=== PATIENT | male | born 1965 | race Caucasian/White ===

== ENCOUNTER 2019-12-11 18:27 | Emergency (ER) | payer OTHER ==
[2019-12-11 18:33] VITALS: BP 165/84; PULSE 86; RESP 20; TEMP 97.9
[2019-12-11] MEDS ORDERED: ACET/COD 300 MG/30 MG STARTER PACK 6 TAB BTL PO STA (19:54)
[2019-12-11] MEDS ORDERED: Acetaminophen-Codeine 300-30mg TAB PO STA (19:54)
--- NOTE | 2019-12-11 19:56 | ED ---
General Adult HPI - General Chief complaint: Skin/Abscess/Foreign Body Stated complaint: sore in mouth Time Seen by Provider: 12/11/19 19:11 Source: patient Mode of arrival: ambulatory Limitations: no limitations - History of Present Illness Initial comments: Patient is a 54-year-old male presenting to the emergency department with a chief complaint of an oral lesion. Patient states the lesion has been on the left side of his tongue and is also present at the [place] mouth. Patient states this has been present for about one month and is gradually increasing severity. Patient reports the lesion is very painful but denies any discharge from the region. Patient does have a strong family history of cancer. Patient is a lifelong smoker. Patient denies any chewing tobacco. Denies any night sweats fevers or chills. Patient states she has not seen a physician in over 25 years. Denies any drooling. Does report some difficulty swallowing. - Related Data Allergies Allergy/AdvReac Type Severity Reaction Status Date / Time No Known Allergies Allergy Verified 12/11/19 18:33 Review of Systems ROS Statement: Those systems with pertinent positive or pertinent negative responses have been documented in the HPI. ROS Other: All systems not noted in ROS Statement are negative. Past Medical History Past Medical History: No Reported History History of Any Multi-Drug Resistant Organisms: None Reported Past Surgical History: No Surgical Hx Reported Past Psychological History: No Psychological Hx Reported Smoking Status: Current every day smoker Past Alcohol Use History: Occasional Past Drug Use History: Marijuana General Exam Limitations: no limitations General appearance: alert, in no apparent distress Head exam: Present: atraumatic, normocephalic, normal inspection Eye exam: Present: normal appearance, PERRL, EOMI Pupils: Present: normal accommodation ENT exam: Present: normal exam, mucous membranes moist, TM's normal bilaterally, normal external ear exam. Absent: normal oropharynx (Lesion along the left side of the tongue and floor the mouth that is white in color.) Neck exam: Present: normal inspection, full ROM Respiratory exam: Present: normal lung sounds bilaterally Cardiovascular Exam: Present: regular rate, normal rhythm, normal heart sounds Extremities exam: Present: normal inspection, full ROM Back exam: Present: normal inspection, full ROM Neurological exam: Present: alert, oriented X3 Psychiatric exam: Present: normal affect, normal mood Skin exam: Present: warm, dry, intact, normal color Course Vital Signs 12/11/19 18:31 Temperature 97.9 F Pulse Rate 86 Respiratory 20 Rate Blood Pressure 165/84 O2 Sat by Pulse 100 Oximetry Medical Decision Making - Medical Decision Making Patient is a 54-year-old male presenting to emergency Department with a chief complaint of an oral lesion. On exam patient does have a white lesion on the left side of his tongue and also the floor of the mouth. 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 Possibly cancerous. Patient has not seen a physician in over 25 years and is a lifelong smoker. Patient does have a strong family history of cancer. Patient advised to follow with an oral surgeon. Patient given a Tylenol 3 starter pack for symptomatically control. Strict return parameters were thoroughly discussed with patient was understanding and agreeable. Case discussed with physician. Disposition Clinical Impression: Oral mucosal lesion Disposition: HOME SELF-CARE Condition: Stable Instructions (If sedation given, give patient instructions): Gingivostomatitis (ED) Additional Instructions: Please follow up with an oral surgeon. Do not drive or operate heavy machinery when taking the medication. Please return to emergency department if symptoms worsen. Is patient prescribed a controlled substance at d/c from ED?: No Referrals: None,Stated [Primary Care Provider] - 1-2 days Broderick Nguyen DDS [STAFF PHYSICIAN] - 1-2 days Time of Disposition: 19:55
== END 2019-12-11 20:16 | disposition home or self-care (01) ==
LOC: EC 18:27
DX: K13.70 Unspecified lesions of oral mucosa (principal); F17.200 Nicotine dependence, unspecified, uncomplicated
CPT/HCPCS: 99282

== ENCOUNTER 2023-10-22 14:55 | Inpatient (IN) | payer OTHER ==
[2023-10-22] MEDS ORDERED: SODIUM CHLORIDE 0.9% 1,000 ML IV STA (15:33)
--- NOTE | 2023-10-22 15:34 | ED ---
Weakness HPI - General Chief complaint: Weakness Stated complaint: Failure to Thrive Time Seen by Provider: 10/22/23 15:30 Source: patient, EMS, RN notes reviewed, old records reviewed Mode of arrival: EMS Limitations: no limitations - History of Present Illness Initial comments: This is a 58-year-old male to the emergency department for evaluation. Patient coming in for significant weakness. Patient is having failure to thrive significant weight loss with history of both oral and esophageal cancer. Patient states he is the point where he can't get up or do anything without having significant shortness of breath and weakness. Patient states he is not complaining of any pain, no headache chest pain shortness breath or abdominal pain, patient is unable to take care of himself on his own at this time MD Complaint: generalized weakness -: days(s) Location: generalized Severity: severe Severity scale (1-10): 9 Consistency: constant Improves with: none Worsens with: none Context: recent illness, history of similar Associated Symptoms: confusion, loss of appetite, nausea/vomiting, syncope - Related Data Home Medications Medication Instructions Recorded Confirmed No Known Home Medications 10/22/23 10/22/23 Allergies Allergy/AdvReac Type Severity Reaction Status Date / Time No Known Allergies Allergy Verified 10/22/23 17:42 Review of Systems ROS Statement: Those systems with pertinent positive or pertinent negative responses have been documented in the HPI. ROS Other: All systems not noted in ROS Statement are negative. Past Medical History Past Medical History: No Reported History Additional Past Medical History / Comment(s): mouth [place] History of Any Multi-Drug Resistant Organisms: None Reported Past Surgical History: No Surgical Hx Reported Past Psychological History: No Psychological Hx Reported Smoking Status: Current every day smoker Past Alcohol Use History: Daily Past Drug Use History: Marijuana General Exam Limitations: no limitations, altered mental status General appearance: alert, in no apparent distress, anxious, lethargic, cachectic Head exam: Present: atraumatic, normocephalic, normal inspection Eye exam: Present: normal appearance, PERRL, EOMI. Absent: scleral icterus, conjunctival injection, periorbital swelling ENT exam: Present: normal exam, mucous membranes moist Neck exam: Present: normal inspection. Absent: tenderness, meningismus, lymphadenopathy Respiratory exam: Present: normal lung sounds bilaterally. Absent: respiratory distress, wheezes, rales, rhonchi, stridor Cardiovascular Exam: Present: regular rate, normal rhythm, normal heart sounds. Absent: systolic murmur, diastolic murmur, rubs, gallop, clicks GI/Abdominal exam: Present: soft, normal bowel sounds. Absent: distended, tenderness, guarding, rebound, rigid Extremities exam: Present: normal inspection, full ROM, normal capillary refill. Absent: tenderness, pedal edema, joint swelling, calf tenderness Back exam: Present: normal inspection Neurological exam: Present: alert, oriented X3, CN II-XII intact Psychiatric exam: Present: normal affect, normal mood Skin exam: Present: warm, dry, intact, normal color. Absent: rash Course Vital Signs 10/22/23 10/22/23 10/22/23 15:05 18:54 18:59 Temperature 98.9 F Pulse Rate 95 95 77 Pulse Rate [ Pulse Oximetery ] Respiratory 16 16 16 Rate Blood Pressure 121/69 Blood Pressure [Left Arm] O2 Sat by Pulse 100 Oximetry 10/22/23 10/22/23 10/22/23 19:05 19:56 20:00 Temperature 98.2 F Pulse Rate 94 Pulse Rate [ 109 H 109 H Pulse Oximetery ] Respiratory 18 16 Rate Blood Pressure 137/62 Blood Pressure 156/96 [Left Arm] O2 Sat by Pulse 99 100 Oximetry 10/23/23 10/23/23 10/23/23 02:01 05:54 08:00 Temperature 97.8 F Pulse Rate 109 H Pulse Rate [ 101 H 92 Pulse Oximetery ] Respiratory 16 16 18 Rate Blood Pressure 111/80 Blood Pressure 137/88 134/92 [Left Arm] O2 Sat by Pulse 95 97 98 Oximetry 10/23/23 10/23/23 10/23/23 08:18 08:29 11:44 Temperature 98 F Pulse Rate 90 90 94 Pulse Rate [ Pulse Oximetery ] Respiratory 18 Rate Blood Pressure 128/79 Blood Pressure [Left Arm] O2 Sat by Pulse 100 Oximetry 10/23/23 10/23/23 15:00 19:22 Temperature 97.3 F L Pulse Rate 78 Pulse Rate [ 97 Pulse Oximetery ] Respiratory 18 15 Rate Blood Pressure 126/74 Blood Pressure 145/85 [Left Arm] O2 Sat by Pulse 96 100 Oximetry - Reevaluation(s) Reevaluation #1: 10/22/23 18:31 Medical record is reviewed Reevaluation #2: 10/22/23 18:31 Patient symptoms her change Reevaluation #3: 10/22/23 18:31 Patient informed results questions answered Reevaluation #4: 10/22/23 18:31 Was pt. sent in by a medical professional or institution (DIAMANTE Davila, CHIEF ENVIRONMENTAL COMMITMENT OFFICER, urgent care, hospital, or custodial...) When possible be specific @ -no Did you speak to anyone other than the patient for history (EMS, parent, family, police, friend...)? What history was obtained from this source @ -no Did you review nursing and triage notes (agree or disagree)? Why? @ -agree Are old charts reviewed (outside hosp., previous admission, EMS record, old EKG, old radiological studies, urgent care reports/EKG's, custodial records)? Report findings @ -yes Differential Diagnosis (chest pain, altered mental status, abdominal pain women, abdominal pain men, vaginal bleeding, weakness, fever, dyspnea, syncope, headache, dizziness, GI bleed, back pain, seizure, CVA, palpatations, mental health, musculoskeletal)? @ -prior EKG interpreted by me (3pts min.). @ -yes X-rays interpreted by me (1pt min.). @ -yes CT interpreted by me (1pt min.). @ -no U/S interpreted by me (1pt. min.). @ -no What testing was considered but not performed or refused? (CT, X-rays, U/S, labs)? Why? @ -none What meds were considered but not given or refused? Why? @ -none Did you discuss the management of the patient with other professionals (professionals i.e. DIAMANTE Davila, CHIEF ENVIRONMENTAL COMMITMENT OFFICER, lab, RT, psych nurse, criminal justice social worker, rating examiner, teacher, president and chief commercial officer, cyanide case hardener)? Give summary @ -no Was smoking cessation discussed for >3mins.? @ -no Was critical care preformed (if so, how long)? @ -no Were there social determinants of health that impacted care today? How? (Homelessness, low income, unemployed, alcoholism, drug addiction, transporta tion, low edu. Level, literacy, decrease access to med. care, penitentiary, rehab)? @ -none Was there de-escalation of care discussed even if they declined (Discuss DNR or withdrawal of care, Hospice)? DNR status @ -no What co-morbidities impacted this encounter? (DM, HTN, Smoking, COPD, CAD, Cancer, CVA, ARF, Chemo, Hep., AIDS, mental health diagnosis, sleep apnea, morbid obesity)? @ -none Was patient admitted / discharged? Hospital course, mention meds given and route, prescriptions, significant lab abnormalities, going to OR and other pertinent info. @ - 58 male to the emergency department today for evaluation today. Patient presents today for evaluation regards to severe weakness severe weight loss debility shortness of breath with exertion. Patient will be admitted for likely placement patient has no significant specific complaints aside from inability to do activities weakness and shortness of breath on any type of activity Admitted Undiagnosed new problem with uncertain prognosis? @ -no Drug Therapy requiring intensive monitoring for toxicity (Heparin, Nitro, Insulin, Cardizem)? @ -no Were any procedures done? @ -no Diagnosis/symptom? @ -Debility, failure to thrive Acute, or Chronic, or Acute on Chronic? @ -Acute Uncomplicated (without systemic symptoms) or Complicated (systemic symptoms)? @ -Complicated Side effects of treatment? @ -no Exacerbation, Progression, or Severe Exacerbation? @ -exacerbation Poses a threat to life or bodily function? How? (Chest pain, USA, CT, pneumonia, PE, COPD, DKA, ARF, appy, cholecystitis, CVA, Diverticulitis, Homicidal, Suicida l, threat to staff... and all critical care pts) @ -yes severe debility and emaciation Reevaluation #5: 10/22/23 18:32 Differential Weakness: Hypoglycemia, shock, sepsis, hyponatremia, anemia, infection, CT, ETOH, adverse medicine reaction, overdose, stroke, this is not meant to be an all-inclusive list. - Consultations Consultation #1: spoke with [facility] will be admit this patient EKG Findings - EKG Comments: EKG Findings:: EKG is A. fib 94 QRS 66 QTC 398 - EKG Results: EKG: interpreted by REYNAD Medical Decision Making - Medical Decision Making 58 male to the emergency department today for evaluation today. Patient presents today for evaluation regards to severe weakness severe weight loss debility shortness of breath with exertion. Patient will be admitted for likely placement patient has no significant specific complaints aside from inability to do activities weakness and shortness of breath on any type of activity - Lab Data Result diagrams: 10/27/23 07:14 10/27/23 07:14 Lab Results 10/22/23 10/22/23 10/22/23 Range/Units 16:04 16:04 16:04 WBC (3.8-10.6) k/uL RBC (4.30-5.90) m/uL Hgb (13.0-17.5) gm/dL Hct (39.0-53.0) % MCV (80.0-100.0) fL MCH (25.0-35.0) pg MCHC (31.0-37.0) g/dL RDW (11.5-15.5) % Plt Count (150-450) k/uL MPV Neutrophils % % Lymphocytes % % Monocytes % % Eosinophils % % Basophils % % Neutrophils # (1.3-7.7) k/uL Lymphocytes # (1.0-4.8) k/uL Monocytes # (0-1.0) k/uL Eosinophils # (0-0.7) k/uL Basophils # (0-0.2) k/uL Hypochromasia PT 11.9 (10.0-12.5) sec INR 1.1 (<1.2) APTT 25.9 (22.0-30.0) sec Sodium 131 L (137-145) mmol/L Potassium 3.9 (3.5-5.1) mmol/L Chloride 97 L (98-107) mmol/L Carbon Dioxide 28 (22-30) mmol/L Anion Gap 6 mmol/L BUN 4 L (9-20) mg/dL Creatinine 0.27 L (0.66-1.25) mg/dL Est GFR (CKD-EPI)AfAm >90 (>60 ml/min/1.73 sqM) Est GFR (CKD-EPI)NonAf >90 (>60 ml/min/1.73 sqM) Glucose 104 H (74-99) mg/dL Plasma Lactic Acid Isai 1.1 (0.7-2.0) mmol/L Calcium 8.6 (8.4-10.2) mg/dL Phosphorus 3.3 (2.5-4.5) mg/dL Magnesium 2.0 (1.6-2.3) mg/dL Total Bilirubin 0.5 (0.2-1.3) mg/dL AST 39 (17-59) U/L ALT 16 (4-49) U/L Alkaline Phosphatase 82 (38-126) U/L Troponin I (0.000-0.034) ng/mL NT-Pro-B Natriuret Pep 719 pg/mL Total Protein 6.7 (6.3-8.2) g/dL Albumin 2.8 L (3.5-5.0) g/dL TSH 1.820 (0.465-4.680) mIU/L 10/22/23 10/22/23 Range/Units 16:04 17:21 WBC 6.9 (3.8-10.6) k/uL RBC 3.52 L (4.30-5.90) m/uL Hgb 9.3 L (13.0-17.5) gm/dL Hct 29.8 L (39.0-53.0) % MCV 84.6 (80.0-100.0) fL MCH 26.5 (25.0-35.0) pg MCHC 31.4 (31.0-37.0) g/dL RDW 14.2 (11.5-15.5) % Plt Count 591 H (150-450) k/uL MPV 7.5 Neutrophils % 76 % Lymphocytes % 13 % Monocytes % 8 % Eosinophils % 2 % Basophils % 0 % Neutrophils # 5.2 (1.3-7.7) k/uL Lymphocytes # 0.9 L (1.0-4.8) k/uL Monocytes # 0.6 (0-1.0) k/uL Eosinophils # 0.1 (0-0.7) k/uL Basophils # 0.0 (0-0.2) k/uL Hypochromasia Marked PT (10.0-12.5) sec INR (<1.2) APTT (22.0-30.0) sec Sodium (137-145) mmol/L Potassium (3.5-5.1) mmol/L Chloride (98-107) mmol/L Carbon Dioxide (22-30) mmol/L Anion Gap mmol/L BUN (9-20) mg/dL Creatinine (0.66-1.25) mg/dL Est GFR (CKD-EPI)AfAm (>60 ml/min/1.73 sqM) Est GFR (CKD-EPI)NonAf (>60 ml/min/1.73 sqM) Glucose (74-99) mg/dL Plasma Lactic Acid Isai (0.7-2.0) mmol/L Calcium (8.4-10.2) mg/dL Phosphorus (2.5-4.5) mg/dL Magnesium (1.6-2.3) mg/dL Total Bilirubin (0.2-1.3) mg/dL AST (17-59) U/L ALT (4-49) U/L Alkaline Phosphatase (38-126) U/L Troponin I <0.012 (0.000-0.034) ng/mL NT-Pro-B Natriuret Pep pg/mL Total Protein (6.3-8.2) g/dL Albumin (3.5-5.0) g/dL TSH (0.465-4.680) mIU/L - Radiology Data Radiology results: report reviewed (CHEst x-rays negative for acute disease, possibility of pneumonia but no clinical symptoms), image reviewed Disposition Clinical Impression: Dehydration, Weakness, Acute renal failure Disposition: ADMITTED IP TO THIS [facility] Condition: Fair Is patient prescribed a controlled substance at d/c from ED?: No Time of Disposition: 18:30
[2023-10-22 16:25] LABS: INR 1.1 (<1.2); Partial Thromboplastin Time 25.9 sec (22.0-30.0); Prothrombin Time 11.9 sec (10.0-12.5)
[2023-10-22 16:27] LABS: ALT 16 U/L (4-49); AST 39 U/L (17-59); African American GFR (CKD) >90 (>60 ml/min/1.73 sqM); Albumin 2.8 g/dL (3.5-5.0); Alkaline Phosphatase 82 U/L (38-126); Anion Gap 6 mmol/L; Blood Urea Nitrogen 4 mg/dL (9-20); Calcium 8.6 mg/dL (8.4-10.2); Carbon Dioxide 28 mmol/L (22-30); Chloride 97 mmol/L (98-107); Glucose 104 mg/dL (74-99); Non-African American GFR(CKD) >90 (>60 ml/min/1.73 sqM); Phosphorus 3.3 mg/dL (2.5-4.5); Potassium 3.9 mmol/L (3.5-5.1); Sodium 131 mmol/L (137-145); Total Bilirubin 0.5 mg/dL (0.2-1.3); Total Protein 6.7 g/dL (6.3-8.2)
[2023-10-22 16:36] LABS: NT-Pro-B-Type Natriuretic Pept 719 pg/mL
[2023-10-22 17:40] LABS: Basophils % (A) 0 %; Eosinophils # (A) 0.1 k/uL (0-0.7); Eosinophils % (A) 2 %; HCT 29.8 % (39.0-53.0); HGB 9.3 gm/dL (13.0-17.5); Hypochromasia Marked; Lymphocytes # (A) 0.9 k/uL (1.0-4.8); Lymphocytes % (A) 13 %; MCH 26.5 pg (25.0-35.0); MCHC 31.4 g/dL (31.0-37.0); MCV 84.6 fL (80.0-100.0); Mean Platelet Volume 7.5; Monocytes # (A) 0.6 k/uL (0-1.0); Monocytes % (A) 8 %; Neutrophils # (A) 5.2 k/uL (1.3-7.7); Neutrophils % (A) 76 %; Platelet Count 591 k/uL (150-450); RBC 3.52 m/uL (4.30-5.90); RDW 14.2 % (11.5-15.5); WBC 6.9 k/uL (3.8-10.6)
[2023-10-22] MEDS ORDERED: IPRATROPIUM-ALBUTEROL 3 ML NEB INHALATION STA (18:35)
[2023-10-22] MEDS ORDERED: ONDANSETRON 4 MG/2 ML VIAL IVP PRN (18:35)
[2023-10-22] MEDS ORDERED: NALOXONE 0.4 MG/ML 1 ML VIAL IV PRN (18:35)
[2023-10-22] MEDS ORDERED: MORPHINE SULFATE 4 MG/ML SYRINGE IV PRN (18:35)
[2023-10-22] MEDS ORDERED: IPRATROPIUM-ALBUTEROL 3 ML NEB INHALATION PRN (18:35)
--- NOTE | 2023-10-22 19:19 | XR ---
EXAMINATION TYPE: XR chest 1V portable DATE OF EXAM: 10/22/2023 HISTORY: Shortness of breath. COMPARISON: None. TECHNIQUE: Single view of the chest is submitted. FINDINGS: Demonstrated are scattered senescent parenchymal change. Patchy infiltrate throughout the right lung may reflect underlying pneumonia. Follow-up until resolut ion advised. Suspect small effusion. Hyperinflation of the left lung. The heart is stable. Hilar and mediastinal structures are within normal limits. Degenerative changes are seen of the dorsal spine. IMPRESSION: 1. Patchy infiltrate throughout the right lung may reflect underlying pneumonia. Follow-up until res olution advised. Suspect small effusion. Hyperinflation of the left lung.
[2023-10-22] MEDS: SODIUM CHLORIDE 0.9% 1,000 ML IV SCH (22:50)
[2023-10-23 01:40] LABS: Appearance,Urine Clear (Clear); Color,Urine Light Orange; Glucose,Urine (UA) Negative (Negative); Ketones,Urine 1+ (Negative); PH, Urine 6.5 (5.0-8.0); Protein,Urine 1+ (Negative)
[2023-10-23 01:41] LABS: Bilirubin,Urine 1+ (Negative); Hyaline Casts,Urine 15 /lpf (0-2); Leukocyte Esterase,Urine Negative (Negative); Nitrite,Urine Negative (Negative); RBC,Urine 2 /hpf (0-5); Squamous Epithelial Cell,Urine 1 /hpf (0-4); WBC,Urine 5 /hpf (0-5)
[2023-10-23 01:42] LABS: Granular Casts,Urine 2 /lpf (0); Mucus,Urine Many /hpf
[2023-10-23 10:14] LABS: Basophils % (A) 0 %; Eosinophils # (A) 0.1 k/uL (0-0.7); Eosinophils % (A) 1 %; HCT 27.4 % (39.0-53.0); HGB 8.4 gm/dL (13.0-17.5); Hypochromasia Marked; Lymphocytes # (A) 0.8 k/uL (1.0-4.8); Lymphocytes % (A) 12 %; MCH 26.1 pg (25.0-35.0); MCHC 30.8 g/dL (31.0-37.0); MCV 84.8 fL (80.0-100.0); Mean Platelet Volume 7.5; Monocytes # (A) 0.7 k/uL (0-1.0); Monocytes % (A) 9 %; Neutrophils # (A) 5.3 k/uL (1.3-7.7); Neutrophils % (A) 76 %; Platelet Count 535 k/uL (150-450); RBC 3.24 m/uL (4.30-5.90); RDW 14.4 % (11.5-15.5)
[2023-10-23] MEDS: SODIUM CHLORIDE 0.9% 1,000 ML IV SCH (10:15)
[2023-10-23 10:34] LABS: ALT 19 U/L (4-49); AST 37 U/L (17-59); African American GFR (CKD) >90 (>60 ml/min/1.73 sqM); Albumin 2.5 g/dL (3.5-5.0); Albumin/Globulin Ratio 0.7; Alkaline Phosphatase 75 U/L (38-126); Anion Gap 7 mmol/L; Blood Urea Nitrogen 3 mg/dL (9-20); Calcium 8.1 mg/dL (8.4-10.2); Carbon Dioxide 26 mmol/L (22-30); Chloride 100 mmol/L (98-107); Globulin 3.7 g/dL; Glucose 146 mg/dL (74-99); Magnesium 1.9 mg/dL (1.6-2.3); Non-African American GFR(CKD) >90 (>60 ml/min/1.73 sqM); Phosphorus 2.7 mg/dL (2.5-4.5); Potassium 3.5 mmol/L (3.5-5.1); Sodium 133 mmol/L (137-145); Total Bilirubin 0.3 mg/dL (0.2-1.3); Total Protein 6.2 g/dL (6.3-8.2)
[2023-10-23] MEDS ORDERED: IOPAMIDOL CONTRAST (ORAL USE) VIAL PO PRN ×2 (11:59→16:25)
[2023-10-23] MEDS: PIPERACILLIN-TAZOBACTAM 3.375 GM in SODIUM CHLORIDE 0.9% 100 ML IVPB SCH ×2 (13:27→17:19)
--- NOTE | 2023-10-23 13:56 | CT ---
EXAMINATION: CT CHEST, ABDOMEN AND PELVIS WITHOUT CONTRAST DATE OF EXAMINATION: 10/23/2023. COMPARISON: None available. INDICATION: History of throat cancer. PROCEDURE: Axial CT of the chest, abdomen and pelvis was performed without contrast. Coronal and sa gittal reformats were performed. CT dose lowering techniques were used, to include: automated exposur e control, adjustment for patient size, and/or use of iterative reconstruction. FINDINGS: CHEST: Mediastinum and Loni: There is no axillary, mediastinal or hilar lymphadenopathy. Pleural and Pericardial spaces: Trace right pleural effusion. Cardiovascular: The thoracic aorta is normal in size without evidence of aneurysm or dissection. Pulmonary Artery: There are no central pulmonary arterial filling defects. Lung Parenchyma and Airways: There is a large irregular mass within the right upper lobe on series 20 4 image 18 measuring 5.2 x 4.0 cm in diameter. There is some surrounding airspace opacity. This would be most likely related to malignancy. There is some mild to moderate diffuse centrilobular emphysema . There is some scattered interstitial changes otherwise seen throughout the right middle and right l ower lobe as well as septal thickening which could be inflammatory or infectious with metastatic dise ase also a possibility in this location. The left lung appears relatively clear. There are a few scat tered sub-5 mm nodules noted on this side however. ABDOMEN: Liver and Biliary system: Normal. Adrenal glands: Normal. Kidneys and ureters: Normal. Spleen: Normal. Pancreas: Normal. Gallbladder: Normal. Lymph nodes, Peritoneum and mesentery: There is no mesenteric or retroperitoneal lymphadenopathy. Gastrointestinal tract: There are no dilated loops of bowel or free intraperitoneal air. . The appe ndix is not clearly seen. There is mild sigmoid diverticulosis without evidence of diverticulitis. Aorta/IVC: Aorta normal. No aortic aneurysm or dissection. IVC normal. Abdominal wall: Normal. PELVIS: Fluid: There is no free fluid in the pelvis. Lymph Nodes: There is no pelvic or inguinal lymphadenopathy.. Urinary bladder: Normal. BONES: There are no osseous destructive lesions.. ADDITIONAL SIGNIFICANT FINDINGS: None. IMPRESSION: 1. Large irregular mass within the right upper lobe is compatible with malignancy and/or metastasis. 2. Extensive airspace opacity also seen within the right lower lobe which has a masslike appearance w hich would raise the possibility of metastatic disease as well. A superimposed pneumonia cannot be ex cluded. 3. Mild diffuse to moderate diffuse centrilobular emphysema. 4. Scattered small pulmonary nodules also seen within the left lung as metastatic disease would not b e entirely excluded. 5. Diverticulosis without evidence of diverticulitis. 6. No renal stones or hydronephrosis. 7. Small right paratracheal lymph node may be metastatic.
--- NOTE | 2023-10-23 13:59 | HP ---
HISTORY AND PHYSICAL CHIEF COMPLAINT: Weakness and diminished p.o. intake. HISTORY OF PRESENT ILLNESS: This 58-year-old gentleman with a past medical history of oral and esophageal cancer, had significant difficulty with eating and the patient continues to have poor oral intake and the patient is apparently living with his brother and because of dehydration and other issues, patient was transferred to [facility], admitted for further evaluation and treatment, currently his BMI is only 14.0, and the patient is severely emaciated and weak. PAST MEDICAL HISTORY: Oral and throat cancer, rest of the history and rest of the chart is also reviewed. HOME MEDICATIONS: Reviewed include albuterol p.r.n., rest of medications noted. ALLERGIES: None. FAMILY HISTORY, SOCIAL HISTORY, REVIEW OF SYSTEMS: Could not be taken as the patient is mildly confused. PHYSICAL EXAMINATION: VITAL SIGNS: Pulse is 94, blood pressure 120/87, respirations 18. CHEST: Few scattered rhonchi and crackles. ABDOMEN: Soft, nontender, mild distention. LEGS: No edema. No swelling. NERVOUS SYSTEM: No focal deficit. SKIN: No ulcer, rash, bleeding. JOINTS: No active deforming arthropathy. LABORATORY DATA: Reviewed. ASSESSMENT: 1. Significant emaciation, possibly severe malnutrition, possibly secondary to diminished p.o. intake. 2. Possible aspiration pneumonia, right. 3. Oral and throat cancer history. 4. History of nicotine dependence. 5. History of alcohol. 6. History of THC. 7. Anemia possibly secondary to malignancy. RECOMMENDATIONS AND DISCUSSION: This 58-year-old gentleman presented with multiple complex medical issues, we will monitor the patient closely, hydrated the patient, PT OT evaluation and dietary nutrition consult nutrition supplements. Possible ECF rehab. Assess the home situation, so recommended to consult Dr. Carl for evaluation of the oral cancer. I would also recommend CT series also just to assess the current situation with the cancer. The patient also had aspiration pneumonia on the right, which we will treat with broad-spectrum IV antibiotics as well. MMODL / IJN: [id number] /
--- NOTE | 2023-10-23 13:59 | CT ---
EXAMINATION TYPE: CT brain wo con DATE OF EXAM: 10/23/2023 COMPARISON: None available. HISTORY: History of throat cancer. CT DLP: 1085.4 mGycm Automated exposure control for dose reduction was used. FINDINGS: There appears to be edema within the right frontal parietal region within the white matter which woul d raise the possibility of an underlying mass. MRI of the brain with contrast is recommended for furt her evaluation. No acute major vessel infarct is clearly identified. There is no hemorrhage seen. IMPRESSION: THERE APPEARS TO BE SOME VASOGENIC EDEMA WITHIN THE RIGHT MATTER OF THE RIGHT CEREBRAL HEMISPHERE WELL THE LEFT FRONTAL REGION WHICH COULD POTENTIALLY REPRESENT METASTATIC LESIONS, HOWEVER INCOMPL ETELY EVALUATED WITHOUT CONTRAST. MRI OF THE BRAIN WITHOUT AND WITH CONTRAST IS RECOMMENDED FOR FURTH ER EVALUATION.
[2023-10-23] MEDS ORDERED: ALPRAZolam 0.25 MG TAB PO STA (20:17)
[2023-10-23] MEDS: NICOTINE 21MG/24HR PATCH TRANSDERM SCH (20:36)
[2023-10-23] MEDS: HEPARIN SODIUM,PORCINE 5,000 UNIT/ML 1 ML VIAL SQ SCH (20:36)
[2023-10-24] MEDS: PIPERACILLIN-TAZOBACTAM 3.375 GM in SODIUM CHLORIDE 0.9% 100 ML IVPB SCH ×3 (00:20→16:26)
[2023-10-24] MEDS: SODIUM CHLORIDE 0.9% 1,000 ML IV SCH ×2 (00:21→11:55)
[2023-10-24] MEDS ORDERED: MELATONIN 5 MG TABLET PO STA (02:58)
--- NOTE | 2023-10-24 09:19 | P.CONS ---
History of Present Illness - Reason for Consult Consult date: 10/23/23 - History of Present Illness Patient is a 58-year-old male with a past medical history significant for mouth and throat cancer presented to the hospital for evaluation of significant weakness the patient did have a failure to thrive and significant weight loss patient was complaining weakness to the point that he is not able to get up without significant shortness of breath and weakness with the symptoms the patient presented to hospital patient on arrival to the ER was afebrile and no fever have been ordered subsequently patient had hematocrit of 6.9 with lymphopenia creatinine has been normal urine has been negative patient did tested negative for COVID-19 patient did have a [address] of the abdominal pelvis and chest without contrast with evidence of large irregular mass within the right upper lobe compatible with malignancy or metastasis with extensive airspace opacity right upper lobe which has a masslike appearance there is a possibility of metastatic disease pneumonia not excluded scattered pulmonary nodules small right paratracheal lymph nodes may be metastatic patient was started on Zosyn infectious he was consulted for further management of antibiotic therapy patient overall is very poor historian but specifically for the respiratory symptoms complaining of some cough bring up any sputum no nausea no pain no choking on the food no diarrhea and is cannot requiring any supplemental oxygen Past Medical History Past Medical History: Cancer Additional Past Medical History / Comment(s): mouth CA, throat CA History of Any Multi-Drug Resistant Organisms: None Reported Past Surgical History: No Surgical Hx Reported Past Anesthesia/Blood Transfusion Reactions: No Reported Reaction Past Psychological History: No Psychological Hx Reported Smoking Status: Current every day smoker Past Alcohol Use History: Daily Past Drug Use History: Marijuana Medications and Allergies Home Medications Medication Instructions Recorded Confirmed Type No Known Home Medications 10/22/23 10/22/23 History Allergies Allergy/AdvReac Type Severity Reaction Status Date / Time No Known Allergies Allergy Verified 10/22/23 17:42 Physical Exam Vitals: Vital Signs Temp Pulse Pulse Resp BP BP Pulse Ox 10/23/23 15:00 78 18 126/74 96 10/23/23 11:44 98 F 94 18 128/79 100 10/23/23 08:29 90 10/23/23 08:18 90 10/23/23 08:00 109 H 18 111/80 98 10/23/23 05:54 92 16 134/92 97 10/23/23 02:01 97.8 F 101 H 16 137/88 95 10/22/23 20:00 109 H 10/22/23 19:56 98.2 F 109 H 16 156/96 100 10/22/23 19:05 94 18 137/62 99 10/22/23 18:59 77 16 10/22/23 18:54 95 16 Intake and Output 10/23/23 10/23/23 10/23/23 06:59 14:59 22:59 Output Total 300 Balance -300 Output: Urine 300 Results CBC & Chem 7: 10/23/23 09:58 10/23/23 09:58 Labs: Abnormal Lab Results - Last 24 Hours (Table) 10/22/23 10/23/23 10/23/23 Range/Units 17:21 01:08 09:58 RBC 3.52 L 3.24 L (4.30-5.90) m/uL Hgb 9.3 L 8.4 L (13.0-17.5) gm/dL Hct 29.8 L 27.4 L (39.0-53.0) % MCHC 30.8 L (31.0-37.0) g/dL Plt Count 591 H 535 H (150-450) k/uL Lymphocytes # 0.9 L 0.8 L (1.0-4.8) k/uL Sodium (137-145) mmol/L BUN (9-20) mg/dL Creatinine (0.66-1.25) mg/dL Glucose (74-99) mg/dL Calcium (8.4-10.2) mg/dL Total Protein (6.3-8.2) g/dL Albumin (3.5-5.0) g/dL Urine Protein 1+ H (Negative) Urine Ketones 1+ H (Negative) Urine Bilirubin 1+ H (Negative) Hyaline Casts 15 H (0-2) /lpf Urine Mucus Many H (None) /hpf 10/23/23 Range/Units 09:58 RBC (4.30-5.90) m/uL Hgb (13.0-17.5) gm/dL Hct (39.0-53.0) % MCHC (31.0-37.0) g/dL Plt Count (150-450) k/uL Lymphocytes # (1.0-4.8) k/uL Sodium 133 L (137-145) mmol/L BUN 3 L (9-20) mg/dL Creatinine 0.24 L (0.66-1.25) mg/dL Glucose 146 H (74-99) mg/dL Calcium 8.1 L (8.4-10.2) mg/dL Total Protein 6.2 L (6.3-8.2) g/dL Albumin 2.5 L (3.5-5.0) g/dL Urine Protein (Negative) Urine Ketones (Negative) Urine Bilirubin (Negative) Hyaline Casts (0-2) /lpf Urine Mucus (None) /hpf Assessment and Plan Plan: 1patient is in the hospital with weakness history of malignancy and noticed to have a significant abnormality on the CT of the chest with a large irregular mass right upper lobe likely concerning for malignancy and concerning for possible component of postobstructive pneumonia 2-we will try to obtain sputum for Gram stain culture check a CRP and a procalcitonin level 3-Zosyn 3.375 g every 8 hours to continue for now while awaiting further work-up to be completed We will follow on clinical condition and cultures to further adjust medication if needed Thank you for this consultation we will follow the patient along with you Dictation was produced using [employer] dictation software. please excuse any grammatical, word or spelling errors. Time with Patient: Greater than 30
[2023-10-24] MEDS: HEPARIN SODIUM,PORCINE 5,000 UNIT/ML 1 ML VIAL SQ SCH (10:22)
[2023-10-24] MEDS: NICOTINE 21MG/24HR PATCH TRANSDERM SCH (10:23)
[2023-10-24 11:10] LABS: Basophils % (A) 1.5 %; Eosinophils # (A) 0.05 X 10*3/uL (0.04-0.35); Eosinophils % (A) 0.8 %; HCT 26.6 % (39.6-50.0); Lymphocytes # (A) 1.16 X 10*3/uL (0.90-5.00); Lymphocytes % (A) 17.7 %; MCH 24.9 pg (27.0-32.0); MCHC 30.1 g/dL (32.0-37.0); MCV 82.9 FL (80.0-97.0); Mean Platelet Volume 9.8 FL (9.5-12.2); Monocytes # (A) 1.11 X 10*3/uL (0.20-1.00); Monocytes % (A) 16.9 %; NRBC Per 100 WBC 0 X 10*3/uL (0.00-0.01); Neutrophils % (A) 62.6 %; Platelet Count 508 X 10*3/uL (140-440); RBC 3.21 X 10*6/uL (4.40-5.60); RDW 14.6 % (11.5-14.5); WBC 6.55 X 10*3/uL (4.50-10.00)
[2023-10-24 12:07] LABS: BUN/Creat Ratio <11.67 Ratio (12.00-20.00); Blood Urea Nitrogen <3.5 mg/dL (9.0-27.0); Chloride 99 mmol/L (96-109); Glucose 107 mg/dL (70-110); Potassium 3.6 mmol/L (3.5-5.5); Sodium 131 mmol/L (135-145)
[2023-10-24 12:08] LABS: Calcium 8.2 mg/dL (8.7-10.3); Carbon Dioxide 22.3 mmol/L (21.6-31.8)
[2023-10-24] MEDS: ALPRAZolam 0.25 MG TAB PO PRN (13:58)
[2023-10-24 14:35] VITALS: BMI 13.9
--- NOTE | 2023-10-24 14:52 | P.PN ---
Subjective Progress Note Date: 10/24/23 Principal diagnosis: Reason for follow-up of his abnormal CT and question of pneumonia Patient is a 58-year-old male with a past medical history significant for mouth and throat cancer presented to the hospital for evaluation of significant weakness the patient did have a failure to thrive and significant weight loss , patient did have significant abnormality on the CT with large irregular mass within upper lobe suspicious for malignancy with extensive airspace opacity possible pneumonia On today's evaluation that is 10/24/2023, the patient remains to be afebrile, the patient is breathing comfortably on room air is not a very good historian when asked specifically denies any chest pain occasional cough no vomiting or diarrhea reported by the nursing staff patient did have a white count of 6.55, creatinine 0.3, CRP is 8.10, pro calcitonin 0.11 Objective - Vital Signs Vital signs: Vital Signs Temp 97.8 F 10/24/23 14:00 Pulse 106 H 10/24/23 14:00 Resp 20 10/24/23 14:00 BP 134/88 10/24/23 14:00 Pulse Ox 92 L 10/24/23 07:48 FiO2 Intake & Output 10/23/23 10/24/23 10/24/23 18:59 06:59 18:59 Intake Total 0 180 Output Total 0 Balance 0 180 Weight 42.864 kg Intake: Oral 0 180 Output: Urine 0 Other: Voiding Method Urinal Diaper External Catheter - Exam GENERAL DESCRIPTION: Middle-aged male lying in bed in no distress RESPIRATORY SYSTEM: Unlabored breathing , decreased intensity of breath sounds HEART: S1 S2 regular rate and rhythm , ABDOMEN: Soft , no tenderness EXTREMITIES: No edema feet - Labs CBC & Chem 7: 10/24/23 06:55 10/24/23 06:55 Labs: Abnormal Lab Results - Last 24 Hours (Table) 10/24/23 10/24/23 10/24/23 Range/Units 06:55 06:55 06:55 RBC 3.21 L (4.40-5.60) X 10*6/uL Hgb 8.0 L (13.0-17.0) g/dL Hct 26.6 L (39.6-50.0) % MCH 24.9 L (27.0-32.0) pg MCHC 30.1 L (32.0-37.0) g/dL RDW 14.6 H (11.5-14.5) % Plt Count 508 H (140-440) X 10*3/uL Monocytes # 1.11 H (0.20-1.00) X 10*3/uL Sodium 131 L (135-145) mmol/L BUN <3.5 L (9.0-27.0) mg/dL Creatinine 0.3 L (0.6-1.5) mg/dL BUN/Creatinine Ratio <11.67 L (12.00-20.00) Ratio Calcium 8.2 L (8.7-10.3) mg/dL C-Reactive Protein 8.10 H (0.00-0.80) mg/dL Procalcitonin 0.11 H (0.02-0.09) ng/mL Assessment and Plan (1) Lung mass Current Visit: Yes Status: Acute Priority: High Code(s): R91.8 - OTHER NONSPECIFIC ABNORMAL FINDING OF LUNG FIELD SNOMED Code(s): 246424502 (2) Pneumonia Current Visit: Yes Status: Acute Code(s): J18.9 - PNEUMONIA, UNSPECIFIED ORGANISM SNOMED Code(s): 718508632 Plan: 1patient is in the hospital with weakness history of malignancy and noticed to have a significant abnormality on the CT of the chest with a large irregular mass right upper lobe likely concerning for malignancy and concerning for possible component of postobstructive pneumonia 2-we will try to obtain sputum for Gram stain culture , patient did have mildly elevated CRP and procalcitonin level 3-patient to continue with Zosyn 3.375 g every 8 hours while awaiting further work-up to be completed Dictation was produced using [employer] dictation software. please excuse any grammatical, word or spelling errors. Time with Patient: Less than 30
[2023-10-24] MEDS ORDERED: LORazepam 2 MG/ML INJ IV PRN ×2 (15:11)
--- NOTE | 2023-10-24 15:19 | MR ---
EXAMINATION TYPE: MR brain wo/w con DATE OF EXAM: 10/24/2023 3:05 PM COMPARISON: NONE HISTORY: Weakness, vasogenic edema seen on CT. CONTRAST: Patient received 4.5 mL intravenous Gadavist gadolinium contrast. Multiplanar and multispin-echo imaging of the brain was performed . Pre and post contrast enhanced i mages are obtained. The ventricles, basal cisterns and sulci overlying the cerebral convexities are mildly enlarged. There is evidence of mild periventricular white matter ischemic demyelination. Remote deep white matter insults are also noted. No acute edema is seen on diffusion weighted imaging. There is no evidence for midline shift or mass effect. Acute intracranial hemorrhage or extra-axial collection is not evident. Attenuated enhancing mass right frontal lobe measuring 4.9 x 3.8 cm with surrounding vasogenic edema. Additional enhancing lesion in the region of the left caudate nucleus measuring 8 mm. Additional madhuri rounding vasogenic edema noted. Cerebellar lesions are seen measuring 6 mm on the left and 2 mm on th e right. Additional inferior right cerebellar lesion measuring 1 cm. The paranasal sinuses and mastoid air cells are well-aerated. IMPRESSION: 1. Multiple supra and infratentorial lesions as discussed above suspicious for metastatic disease. Co rrelate clinically. 2. Age-related atrophic and chronic small vessel ischemic change. 3. No evidence for midline shift.
--- NOTE | 2023-10-24 15:49 | P.CNPUL ---
History of Present Illness Consult date: 10/24/23 Requesting physician: Soledad Barfield Reason for consult: COPD, pneumonia, lung mass, abnormal CXR/CT, other Chief complaint: Abnormal CAT scan, possible lung mass. History of present illness: Pulmonary consult dated 10/24/2023. 58-year-old male who apparently presented to the emergency department on October 22, complaining of weakness, and failure to thrive. The patient apparently has had significant weight loss, and has a history of tongue cancer, and esophageal cancer. In addition, the patient apparently has either a mass or infiltrate in his lungs, and, we were asked to see the patient for possible biopsy. On room air, his saturations are 92%. He's getting saline at 75 mL an hour. He apparently does not have a family doctor. He is a heavy smoker, uses marijuana, and, is a heavy drinker of alcohol. His niece was in the room, and gave us this history. He apparently takes no medications at home. Here in the hospital, he's on duo nebs, Xanax, subcutaneous heparin, Ativan, morphine, Narcan, nicotine patch, Zofran, and Zosyn. White count 6.55, hemoglobin 8, hematocrit 26.6, and platelet count 508,000. Sodium 131, potassium 3.6, chlorides 99, CO2 22, anion gap 10, BUN less than 3.5, and creatinine 0.3. Pro- calcitonin level is 0.11. Chest x-ray on the day of admission, shows a patchy infiltrate in the right lung. Computed tomography scan of the brain revealed some vasogenic edema within the white matter of the right cerebral hemisphere as well as in the left frontal region. Computed tomography scan of the chest reveals a large irregular mass within the right upper lobe, and extensive airspace opacity in the right lower lobe. There are scattered pulmonary nodules within the left lung, potentially consistent with metastatic disease. Brain MRI shows multiple supra and infratentorial lesions, suspicious for metastatic disease. Review of Systems REVIEW OF SYSTEMS: CONSTITUTIONAL: Weakness, and weight loss. NEUROLOGIC: [ Negative.] HEENT: [ Negative.] CARDIAC: [Negative.] PULMONARY: [Negative.] GI: [Negative.] : [Negative.] RHEUMATOLOGIC: [ Negative.] IMMUNOLOGIC: [ Negative.] ENDOCRINE: [Negative. ] DERMATOLOGIC: [Negative.] Past Medical History Past Medical History: Cancer Additional Past Medical History / Comment(s): mouth CA, throat CA History of Any Multi-Drug Resistant Organisms: None Reported Past Surgical History: No Surgical Hx Reported Past Anesthesia/Blood Transfusion Reactions: No Reported Reaction Past Psychological History: No Psychological Hx Reported Smoking Status: Current every day smoker Past Alcohol Use History: Daily Past Drug Use History: Marijuana Medications and Allergies Home Medications Medication Instructions Recorded Confirmed Type No Known Home Medications 10/22/23 10/22/23 History Allergies Allergy/AdvReac Type Severity Reaction Status Date / Time No Known Allergies Allergy Verified 10/22/23 17:42 Physical Exam Osteopathic Statement: *. No significant issues noted on an osteopathic structural exam other than those noted in the History and Physical/Consult. Vitals: Vital Signs Temp Pulse Pulse Resp BP Pulse Ox 10/24/23 14:00 97.8 F 106 H 20 134/88 10/24/23 07:48 97.6 F 99 18 136/77 92 L 10/24/23 01:54 97.8 F 113 H 19 132/81 100 10/23/23 19:22 97.3 F L 97 15 145/85 100 Intake and Output 10/24/23 10/24/23 10/24/23 06:59 14:59 22:59 Intake Total 360 Balance 360 Intake: Oral 360 Other: Weight 42.864 kg No acute distress, oriented 3. Currently on room air. HEENT examination is grossly unremarkable. Mucous membranes are moist. No oral lesions. Neck supple. Full range of motion. No adenopathy thyromegaly or neck vein distention. Cardiovascular examination reveals regular rhythm rate. S1-S2 normal. No S3 or S4. No discernible murmur noted. Heart rate 100 bpm. Lungs reveal scattered bilateral rhonchi. Room air saturation 92%. No wheezes. No crackles. Abdomen soft bowel sounds are heard. No masses or tenderness. Extremities are intact. No cyanosis clubbing or edema. Skin is without rash or lesion. Neurologic examination is brief but nonfocal. Results - Laboratory Findings CBC and BMP: 10/24/23 06:55 10/24/23 06:55 PT/INR, D-dimer PT 11.9 sec (10.0-12.5) 10/22/23 16:04 INR 1.1 (<1.2) 10/22/23 16:04 Abnormal lab findings: Abnormal Labs 10/22/23 10/22/23 10/23/23 16:04 17:21 01:08 RBC 3.52 L Hgb 9.3 L Hct 29.8 L MCH MCHC RDW Plt Count 591 H Lymphocytes # 0.9 L Monocytes # Sodium 131 L Chloride 97 L BUN 4 L Creatinine 0.27 L BUN/Creatinine Ratio Glucose 104 H Calcium C-Reactive Protein Total Protein Albumin 2.8 L Procalcitonin Urine Protein 1+ H Urine Ketones 1+ H Urine Bilirubin 1+ H Hyaline Casts 15 H Urine Mucus Many H 10/23/23 10/23/23 10/24/23 09:58 09:58 06:55 RBC 3.24 L 3.21 L Hgb 8.4 L 8.0 L Hct 27.4 L 26.6 L MCH 24.9 L MCHC 30.8 L 30.1 L RDW 14.6 H Plt Count 535 H 508 H Lymphocytes # 0.8 L Monocytes # 1.11 H Sodium 133 L Chloride BUN 3 L Creatinine 0.24 L BUN/Creatinine Ratio Glucose 146 H Calcium 8.1 L C-Reactive Protein Total Protein 6.2 L Albumin 2.5 L Procalcitonin Urine Protein Urine Ketones Urine Bilirubin Hyaline Casts Urine Mucus 10/24/23 10/24/23 06:55 06:55 RBC Hgb Hct MCH MCHC RDW Plt Count Lymphocytes # Monocytes # Sodium 131 L Chloride BUN <3.5 L Creatinine 0.3 L BUN/Creatinine Ratio <11.67 L Glucose Calcium 8.2 L C-Reactive Protein 8.10 H Total Protein Albumin Procalcitonin 0.11 H Urine Protein Urine Ketones Urine Bilirubin Hyaline Casts Urine Mucus - Diagnostic Findings Chest x-ray: image reviewed CT scan - chest: image reviewed Assessment and Plan Assessment: 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 History of tongue cancer, status post surgery. History of esophageal cancer. History of heavy tobacco use, rule out COPD. History of chronic alcohol use/abuse. Anemia. Hyponatremia. Noncompliance with medical care. Plan: Plan dated 10/24/2023. The patient will be nothing by mouth after midnight. The patient will undergo bronchoscopy tomorrow. Additional recommendations and suggestions are forthcoming. The patient should receive Decadron for his central nervous system lesions. There is significant vasogenic edema surrounding the lesion. Labs, x-rays, and medications are reviewed. All scans have been reviewed. We will continue to follow the patient, and make recommendations. Time with Patient: Greater than 30
--- NOTE | 2023-10-24 16:29 | PN ---
PROGRESS NOTE DATE OF SERVICE: 10/24/2023 SUBJECTIVE: This is a 58-year-old gentleman, who was admitted with significant emaciation, also evaluated for right aspiration pneumonia. The right-sided lung mass is also suspected in the CAT scan. The patient is confused as well. Postobstructive pneumonia is also a possibility. PAST MEDICAL HISTORY: Reviewed. REVIEW OF SYSTEMS: Fourteen-point review is negative except as mentioned earlier. CURRENT MEDICATIONS: Reviewed include IV Zosyn. PHYSICAL EXAMINATION: VITAL SIGNS: Pulse is 99, blood pressure 130/77, respirations 18. HEENT: Conjunctivae are normal. NECK: No jugular venous distention. CARDIOVASCULAR: S1 and S2 muffled. RESPIRATORY: Breath sounds diminished at the bases. Few scattered rhonchi and crackles. ABDOMEN: Soft. NERVOUS SYSTEM: Diffusely weak. LABORATORY DATA: Hemoglobin is 8. Sodium is 131. ASSESSMENT: 1. Significant emaciation, possibly severe malnutrition. Rule out right upper lobe lung cancer. 2. Possible right aspiration pneumonia. 3. Diminished p.o. intake. 4. Oral and throat cancer history. 5. History of nicotine dependence. 6. History of alcohol. 7. History of THC. 8. Anemia, possibly secondary to malignancy. RECOMMENDATIONS: Recommend to continue current medications. Continue symptomatic treatment. Continue with broad-spectrum IV antibiotics. Infectious Disease, Pulmonary, and as well as Hematology/Oncology evaluation. The overall prognosis is extremely guarded because of multiple complex medical issues. Further recommendations to follow. See orders for the details. MMODL / IJN: [id number] /
--- NOTE | 2023-10-24 16:54 | NM ---
EXAMINATION TYPE: NM bone scan whole body DATE OF EXAM: 10/24/2023 4:40 PM CLINICAL INDICATION:Male, 58 years old with history of suspected metastatic disease, staging; COMPARISON: CT 10/23/2023 TECHNIQUE: Intravenous administration 19.6 mCi Tc 99m MDP followed by multiple scintigraphic images o f the appendicular and axial skeleton. Additionally, small field of view planar anterior and posterio r images of the lumbosacral spine and pelvis. Lastly, coronal, transverse, and sagittal SPECT images of the lumbosacral spine and pelvis were generated for review.Lastly, small [id number] anterior, p osterior and lateral views of the chest were submitted for review. Images acquired 6.5 hours post injection. FINDINGS: No abnormal uptake is identified within the appendicular or axial skeleton to suggest metastatic dise ase. Multiple right-sided rib fracture seen on prior CT demonstrate radiotracer uptake. There is increased uptake within the bilateral shoulder, sternoclavicular, and sacroiliac joints con sistent with degenerative changes. No other photopenic areas or areas of increased activity are ident ified. Physiologic radiotracer activity is demonstrated in the kidneys and bladder. IMPRESSION: 1. Nothing to suggest osteoblastic metastatic disease. 2. Uptake within the ribs correspond with fractures on CT 10/23/2023.
--- NOTE | 2023-10-24 18:37 | P.CONS ---
History of Present Illness - Reason for Consult Consult date: 10/23/23 malignancy Requesting physician: Soledad Barfield - Chief Complaint weakness - History of Present Illness Patient is a 58 year old male with a significant history of tongue cancer. History is somewhat limited as patient is a poor historian. Underwent surgical resection with ENT, Dr. Tobias, but reports he did not receive systemic treatment or XRT. Pt reports he has been having progressing weakness and weight loss over the last 6 moths. Upon admission chest x-ray showed patchy infiltrate throughout the right lung. Suspect small effusion. Hyperinflation of the left lung. CT chest abdomen pelvis revealed large irregular mass within the right upper lobe. Extensive airspace opacity also seen within the right lower lobe which has a masslike appearance. Scattered small pulmonary nodules seen within the left lung. Small right paratracheal lymph node. CT brain showed what appears to be some vasogenic edema within the right matter of the right cerebral hemisphere as well as the left frontal region which could represent potentially metastatic lesions however incompletely evaluated without contrast. Review of Systems 10 point ROS is negative except as stated in the [facility] Past Medical History Past Medical History: Cancer Additional Past Medical History / Comment(s): mouth CA, throat CA History of Any Multi-Drug Resistant Organisms: None Reported Past Surgical History: No Surgical Hx Reported Past Anesthesia/Blood Transfusion Reactions: No Reported Reaction Past Psychological History: No Psychological Hx Reported Smoking Status: Current every day smoker Past Alcohol Use History: Daily Past Drug Use History: Marijuana Medications and Allergies Home Medications Medication Instructions Recorded Confirmed Type No Known Home Medications 10/22/23 10/22/23 History Allergies Allergy/AdvReac Type Severity Reaction Status Date / Time No Known Allergies Allergy Verified 10/22/23 17:42 Physical Exam Vitals: Vital Signs Temp Pulse Pulse Resp BP BP Pulse Ox 10/23/23 15:00 78 18 126/74 96 10/23/23 11:44 98 F 94 18 128/79 100 10/23/23 08:29 90 10/23/23 08:18 90 10/23/23 08:00 109 H 18 111/80 98 10/23/23 05:54 92 16 134/92 97 10/23/23 02:01 97.8 F 101 H 16 137/88 95 Intake and Output 10/23/23 10/23/23 10/23/23 06:59 14:59 22:59 Intake Total 0 Output Total 300 0 Balance -300 0 Intake: Oral 0 Output: Urine 300 0 - Constitutional General appearance: no acute distress, thin - EENT mucocitis/thrush noted, with post surgical changes Eyes: anicteric sclerae, EOMI ENT: hearing grossly normal - Respiratory Respiratory: bilateral: diminished - Cardiovascular Rhythm: regular Heart sounds: normal: S1, S2 - Gastrointestinal General gastrointestinal: soft, no tenderness - Integumentary Integumentary: no cyanotic - Musculoskeletal Musculoskeletal: generalized weakness - Psychiatric Psychiatric: A&O x's 3 Results CBC & Chem 7: 10/24/23 06:55 10/24/23 06:55 Labs: Abnormal Lab Results - Last 24 Hours (Table) 10/23/23 10/23/23 10/23/23 Range/Units 01:08 09:58 09:58 RBC 3.24 L (4.30-5.90) m/uL Hgb 8.4 L (13.0-17.5) gm/dL Hct 27.4 L (39.0-53.0) % MCHC 30.8 L (31.0-37.0) g/dL Plt Count 535 H (150-450) k/uL Lymphocytes # 0.8 L (1.0-4.8) k/uL Sodium 133 L (137-145) mmol/L BUN 3 L (9-20) mg/dL Creatinine 0.24 L (0.66-1.25) mg/dL Glucose 146 H (74-99) mg/dL Calcium 8.1 L (8.4-10.2) mg/dL Total Protein 6.2 L (6.3-8.2) g/dL Albumin 2.5 L (3.5-5.0) g/dL Urine Protein 1+ H (Negative) Urine Ketones 1+ H (Negative) Urine Bilirubin 1+ H (Negative) Hyaline Casts 15 H (0-2) /lpf Urine Mucus Many H (None) /hpf Chest x-ray: report reviewed CT scan - abdomen: report reviewed CT scan - chest: report reviewed CT Scan - head: report reviewed CT scan - pelvis: report reviewed Assessment and Plan (1) History of head and neck cancer Current Visit: Yes Status: Acute Priority: High Code(s): Z85.89 - PERSONAL HISTORY OF MALIGNANT NEOPLASM OF ORGANS AND SYSTEMS SNOMED Code(s): 307977339 (2) Lung mass Current Visit: Yes Status: Acute Priority: High Code(s): R91.8 - OTHER NONSPECIFIC ABNORMAL FINDING OF LUNG FIELD SNOMED Code(s): 323438014 (3) Weakness Current Visit: Yes Status: Acute Priority: High Code(s): R53.1 - WEAKNESS SNOMED Code(s): 98559508 Plan: Tongue cancer: -History of tongue cancer. History is somewhat limited as patient is a poor historian. Underwent surgical resection with ENT, Dr. Tobias, but reports he did not receive systemic treatment or XRT. -Now reporting progressing weakness, weight loss, failure to thrive over the last 6 months Lung mass: -CT chest abdomen pelvis revealed large irregular mass within the right upper lobe. Extensive airspace opacity also seen within the right lower lobe which has a masslike appearance. Scattered small pulmonary nodules seen within the left lung. Small right paratracheal lymph node. CT brain showed what appears to be some vasogenic edema within the right matter of the right cerebral hemisphere as well as the left frontal region which could represent potentially metastatic lesions however incompletely evaluated without contrast. Results and concerns of malignancy were discussed with patient -Will obtain brain MRI and bone scan for further staging of disease -Pulmonology consulted for evaluation for lung biopsy, to r/o new primary vs recurrence of disease Attests: I have seen and examined pt, performed H&P, developed impression and plan of care. Discussed with dictator. Agree with documentation, dictated as a scribe
--- NOTE | 2023-10-24 20:14 | P.PN ---
Subjective Progress Note Date: 10/24/23 At today's visit patient is resting comfortably in bed. Patient reporting persisting weakness. Denies pain and shortness of breath. Denies headache and visual disturbances Objective - Vital Signs Vital signs: Vital Signs Temp 97.8 F 10/24/23 14:00 Pulse 106 H 10/24/23 14:00 Resp 20 10/24/23 14:00 BP 134/88 10/24/23 14:00 Pulse Ox 92 L 10/24/23 07:48 FiO2 Intake & Output 10/24/23 10/24/23 10/25/23 06:59 18:59 06:59 Intake Total 360 Output Total 200 Balance 160 Weight 42.864 kg Intake: Oral 360 Output: Urine 200 Other: Voiding Method Urinal Diaper External Catheter - Constitutional General appearance: Present: thin - EENT ENT: Present: hearing grossly normal - Respiratory Details: breathing even and unlabored - Cardiovascular Details: skin warm and dry - Integumentary Integumentary: Absent: cyanotic - Musculoskeletal Musculoskeletal: Present: generalized weakness, strength equal bilaterally - Psychiatric Psychiatric: Present: A&O x's 3 - Labs CBC & Chem 7: 10/24/23 06:55 10/24/23 06:55 Labs: Abnormal Lab Results - Last 24 Hours (Table) 10/24/23 10/24/23 10/24/23 Range/Units 06:55 06:55 06:55 RBC 3.21 L (4.40-5.60) X 10*6/uL Hgb 8.0 L (13.0-17.0) g/dL Hct 26.6 L (39.6-50.0) % MCH 24.9 L (27.0-32.0) pg MCHC 30.1 L (32.0-37.0) g/dL RDW 14.6 H (11.5-14.5) % Plt Count 508 H (140-440) X 10*3/uL Monocytes # 1.11 H (0.20-1.00) X 10*3/uL Sodium 131 L (135-145) mmol/L BUN <3.5 L (9.0-27.0) mg/dL Creatinine 0.3 L (0.6-1.5) mg/dL BUN/Creatinine Ratio <11.67 L (12.00-20.00) Ratio Calcium 8.2 L (8.7-10.3) mg/dL C-Reactive Protein 8.10 H (0.00-0.80) mg/dL Procalcitonin 0.11 H (0.02-0.09) ng/mL Microbiology - Last 24 Hours (Table) 10/23/23 12:04 Blood Culture - Preliminary Blood Assessment and Plan (1) History of head and neck cancer Current Visit: Yes Status: Acute Priority: High Code(s): Z85.89 - PERSONAL HISTORY OF MALIGNANT NEOPLASM OF ORGANS AND SYSTEMS SNOMED Code(s): 680868160 (2) Lung mass Current Visit: Yes Status: Acute Priority: High Code(s): R91.8 - OTHER NONSPECIFIC ABNORMAL FINDING OF LUNG FIELD SNOMED Code(s): 699590597 (3) Weakness Current Visit: Yes Status: Acute Priority: High Code(s): R53.1 - WEAKNESS SNOMED Code(s): 75457747 (4) Metastasis to brain Current Visit: Yes Status: Acute Priority: High Code(s): C79.31 - SECONDARY MALIGNANT NEOPLASM OF BRAIN SNOMED Code(s): 31958302 Plan: Tongue cancer: -History of tongue cancer. History is somewhat limited as patient is a poor historian. Underwent surgical resection with ENT, Dr. Tobias, but reports he did not receive systemic treatment or XRT. -Now reporting progressing weakness, weight loss, failure to thrive over the last 6 months Lung mass/brain mets: -CT chest abdomen pelvis revealed large irregular mass within the right upper lobe. Extensive airspace opacity also seen within the right lower lobe which has a masslike appearance. Scattered small pulmonary nodules seen within the le ft lung. Small right paratracheal lymph node. CT brain showed what appears to be some vasogenic edema within the right matter of the right cerebral hemisphere as well as the left frontal region which could represent potentially metastatic lesions however incompletely evaluated without contrast. Results and concerns of malignancy were discussed with patient -Pulmonology consulted for evaluation for lung biopsy, to r/o new primary vs recurrence of disease. Plan for bronchoscopy tomorrow -Brain MRI and bone scan obtained for further staging of disease. Brain MRI revealed multiple supra and infratentorial lesions with surrounding vasogenic edema. Bone scan negative for osteoblastic metastatic disease -Decadron 4mg TID started. Rad/onc consulted
[2023-10-24] MEDS: DEXAMETHASONE SOD PHOSPHATE 4 MG/ML 1 ML VIAL IVP SCH (21:46)
[2023-10-25] MEDS: HEPARIN SODIUM,PORCINE 5,000 UNIT/ML 1 ML VIAL SQ SCH ×3 (00:15→22:41)
[2023-10-25] MEDS: PIPERACILLIN-TAZOBACTAM 3.375 GM in SODIUM CHLORIDE 0.9% 100 ML IVPB SCH ×3 (00:16→16:21)
[2023-10-25] MEDS: SODIUM CHLORIDE 0.9% 1,000 ML IV SCH ×2 (04:19→16:20)
[2023-10-25] MEDS: DEXAMETHASONE SOD PHOSPHATE 4 MG/ML 1 ML VIAL IVP SCH ×3 (04:19→22:41)
[2023-10-25] MEDS: NICOTINE 21MG/24HR PATCH TRANSDERM SCH (09:46)
[2023-10-25] MEDS ORDERED: DEXTROSE 50% SYRINGE 50 ML IVP PRN ×2 (12:33)
[2023-10-25] MEDS ORDERED: IV FLUID CONTINUATION 200 ML IV ONE (13:25)
[2023-10-25] MEDS ORDERED: ONDANSETRON 4 MG/2 ML VIAL IVP ONE (13:40)
[2023-10-25] MEDS ORDERED: MIDAZOLAM 2 MG/2 ML VIAL ONE (14:04)
[2023-10-25] MEDS ORDERED: SUCCINYLCHOLINE CHLORIDE 200 MG/10 ML VIAL IV ONE (14:04)
[2023-10-25] MEDS ORDERED: PROPOFOL 10 MG/ML 20 ML VIAL IV ONE (14:04)
[2023-10-25] MEDS ORDERED: KETAMINE HCL IN 0.9 % NACL 50 MG/5 ML SYRINGE ONE (14:04)
--- NOTE | 2023-10-25 14:09 | P.PN ---
Subjective Progress Note Date: 10/25/23 58-year-old male who apparently presented to the emergency department on October 22, complaining of weakness, and failure to thrive. The patient apparently has had significant weight loss, and has a history of tongue cancer, and esophageal cancer. In addition, the patient apparently has either a mass or infiltrate in his lungs, and, we were asked to see the patient for possible biopsy. On room air, his saturations are 92%. He's getting saline at 75 mL an hour. He apparently does not have a family doctor. He is a heavy smoker, uses marijuana, and, is a heavy drinker of alcohol. His niece was in the room, and gave us this history. He apparently takes no medications at home. Here in the hospital, he's on duo nebs, Xanax, subcutaneous heparin, Ativan, morphine, Narcan, nicotine patch, Zofran, and Zosyn. White count 6.55, hemoglobin 8, hematocrit 26.6, and platelet count 508,000. Sodium 131, potassium 3.6, chlorides 99, CO2 22, anion gap 10, BUN less than 3.5, and creatinine 0.3. Pro- calcitonin level is 0.11. Chest x-ray on the day of admission, shows a patchy infiltrate in the right lung. Computed tomography scan of the brain revealed some vasogenic edema within the white matter of the right cerebral hemisphere as well as in the left frontal region. Computed tomography scan of the chest reveals a large irregular mass within the right upper lobe, and extensive airspace opacity in the right lower lobe. There are scattered pulmonary nodules within the left lung, potentially consistent with metastatic disease. Brain MRI shows multiple supra and infratentorial lesions, suspicious for metastatic disease. The patient is seen today 10/25/2023 and follow-up on the regular medical floor. He is currently resting in bed. Awake and alert in no acute distress. He is maintaining O2 saturations in the 90s on room air. He's been afebrile. Hemodynamically stable. Culture revealing no growth. Pro-calcitonin 0.11. MRI of the brain revealed multiple supra and infra tentorial lesions suspicious for metastatic disease. Bone scan revealed no osteoblastic metastatic disease. He's been initiated on Decadron. Radiation oncology consulted. He is scheduled for bronchoscopy with biopsies today. Objective - Vital Signs Vital signs: Vital Signs Temp 97.5 F L 10/25/23 13:31 Pulse 85 10/25/23 13:31 Resp 16 10/25/23 13:31 BP 144/78 10/25/23 13:31 Pulse Ox 100 10/25/23 13:31 FiO2 21 10/25/23 07:49 Intake & Output 10/24/23 10/25/23 10/25/23 18:59 06:59 18:59 Intake Total 360 0 100 Output Total 200 400 Balance 160 -400 100 Weight 42.864 kg Intake: IV 100 Oral 360 0 Output: Urine 200 400 Other: Voiding Method Urinal Urinal Diaper Diaper External Catheter External Catheter # Voids 1 - Exam GENERAL EXAM: Alert, pale, very cachectic 58-year-old male patient, on room air, comfortable in no apparent distress. HEAD: Normocephalic. EYES: Normal reaction of pupils, equal size. NOSE: Clear with pink turbinates. THROAT: No erythema or exudates. NECK: No masses, no JVD. CHEST: No chest wall deformity. LUNGS: Equal air entry with bilateral scattered rhonchi, diminished. CVS: S1 and S2 normal with no audible murmur, regular rhythm. ABDOMEN: No hepatosplenomegaly, normal bowel sounds, no guarding or rigidity. SPINE: No scoliosis or deformity SKIN: No rashes CENTRAL NERVOUS SYSTEM: No focal deficits, tone is normal in all 4 extremities. EXTREMITIES: There is no peripheral edema. No clubbing, no cyanosis. Peripheral pulses are intact. - Labs CBC & Chem 7: 10/24/23 06:55 10/24/23 06:55 Labs: Microbiology - Last 24 Hours (Table) 10/23/23 12:04 Blood Culture - Preliminary Blood Assessment and Plan Assessment: 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 MRI of the brain does reveal multiple metastatic lesions. Bone scan revealed no osseous lesions per History of tongue cancer, status post surgery. History of esophageal cancer. History of heavy tobacco use, rule out COPD. History of chronic alcohol use/abuse. Anemia. Hyponatremia. Noncompliance with medical care. Plan: The patient was seen and evaluated MRI of the brain, bone scan, medications and labs reviewed Plan is for bronchoscopy with biopsies of the lung mass today Continue on Decadron Continue Zosyn for now, procalcitonin 0.11 Heparin for DVT prophylaxis We will continue to follow and make further recommendations based on his clinical status I have personally seen and examined the patient, performed the documentation and the assessment and plan as written. Number of minutes spent on the visit: 10.
--- NOTE | 2023-10-25 15:12 | P.PN ---
Subjective Progress Note Date: 10/25/23 Principal diagnosis: Reason for follow-up of his abnormal CT and question of pneumonia Patient is a 58-year-old male with a past medical history significant for mouth and throat cancer presented to the hospital for evaluation of significant weakness the patient did have a failure to thrive and significant weight loss , patient did have significant abnormality on the CT with large irregular mass within upper lobe suspicious for malignancy with extensive airspace opacity possible pneumonia On today's evaluation that is 10/25/2023 the patient remains to be afebrile, the patient is breathing comfortably on room air and no need for oxygen. The patient not a very good historian however nonspecifically denies shortness of breath denies any chest pain or cough, patient denies nausea/vomiting or diarrhea and no abdominal pain patient did have a white count of 6.55, creatinine 0.3 as of yesterday, CRP is 8.10, pro calcitonin 0.11 Objective - Vital Signs Vital signs: Vital Signs Temp 97.6 F 10/25/23 12:42 Pulse 90 10/25/23 12:42 Resp 16 10/25/23 12:42 BP 123/75 10/25/23 12:42 Pulse Ox 100 10/25/23 12:42 FiO2 21 10/25/23 07:49 Intake & Output 10/24/23 10/25/23 10/25/23 18:59 06:59 18:59 Intake Total 360 0 Output Total 200 400 Balance 160 -400 Weight 42.864 kg Intake: Oral 360 0 Output: Urine 200 400 Other: Voiding Method Urinal Urinal Diaper Diaper External Catheter External Catheter # Voids 1 - Exam GENERAL DESCRIPTION: Middle-aged male lying in bed in no distress RESPIRATORY SYSTEM: Unlabored breathing , decreased intensity of breath sounds HEART: S1 S2 regular rate and rhythm , ABDOMEN: Soft , no tenderness EXTREMITIES: No edema feet - Labs CBC & Chem 7: 10/24/23 06:55 10/24/23 06:55 Labs: Microbiology - Last 24 Hours (Table) 10/23/23 12:04 Blood Culture - Preliminary Blood Assessment and Plan (1) Lung mass Current Visit: Yes Status: Acute Priority: High Code(s): R91.8 - OTHER NONSPECIFIC ABNORMAL FINDING OF LUNG FIELD SNOMED Code(s): 110992039 (2) Pneumonia Current Visit: Yes Status: Acute Code(s): J18.9 - PNEUMONIA, UNSPECIFIED ORGANISM SNOMED Code(s): 969302059 Plan: 1patient is in the hospital with weakness history of malignancy and noticed to have a significant abnormality on the CT of the chest with a large irregular mass right upper lobe likely concerning for malignancy and concerning for possible component of postobstructive pneumonia 2-we will try to obtain sputum for Gram stain culture , patient did have mildly elevated CRP and procalcitonin level 3-patient currently covered with Zosyn 3.375 g every 8 hours to continue while waiting for work-up to be completed Dictation was produced using [employer] dictation software. please excuse any grammatical, word or spelling errors. Time with Patient: Less than 30
[2023-10-25 17:07] LABS: Glucose,Whole Blood 140 mg/dL (70-110)
--- NOTE | 2023-10-25 17:35 | PN ---
PROGRESS NOTE DATE OF SERVICE: 10/25/2023 SUBJECTIVE: This is a 58-year-old gentleman, who was admitted with significant emaciation, also found to have right aspiration pneumonia. The patient also has right upper lobe lung cancer. A bone scan showed no significant osteoblastic secondaries. Multiple consultants are following the patient closely. The patient is on broad spectrum IV antibiotics. Pulmonary has seen the patient. Bronchoscopy is being planned. The MRI showed multiple lesions suggestive of metastatic disease. PAST MEDICAL HISTORY: Reviewed. REVIEW OF SYSTEMS: Could not be taken. The patient is mildly confused. CURRENT MEDICATIONS: Reviewed. PHYSICAL EXAMINATION: VITAL SIGNS: Pulse is 88, blood pressure 140/70, respirations 16. CHEST: Few scattered rhonchi and crackles. ABDOMEN: Soft. NERVOUS SYSTEM: Nonfocal. LABORATORY DATA: Hemoglobin 8. Rest of the labs are noted. ASSESSMENT: 1. Significant emaciation, possible severe malnutrition. 2. Possible right upper lobe lung cancer with metastasis. 3. Possible right aspiration pneumonia, postobstructive pneumonia with gram-negative. 4. Diminished p.o. intake. 5. Oral and throat cancer history. 6. History of nicotine dependence. 7. History of EtOH. 8. History of THC. 9. Anemia, possibly secondary to malignancy. RECOMMENDATIONS: Recommend to continue current medications. Continue symptomatic treatment. Otherwise, bronchoscopy. Empiric antibiotics. A brain MRI was done, which showed multiple supratentorial and infratentorial lesions, suspicion of metastatic disease. Overall prognosis is extremely guarded. Further recommendations to follow. See orders for the details. We will continue to proceed with bronchoscopy for possible diagnosis of initial primary. MMODL / IJN: [id number] /
[2023-10-25] MEDS: INSULIN ASPART (NovoLOG) 100 UNIT/ML VIAL SQ SCH ×2 (19:04→22:42)
[2023-10-25 21:19] LABS: Glucose,Whole Blood 189 mg/dL (70-110)
--- NOTE | 2023-10-25 21:50 | PCN ---
PROCEDURE NOTE PROCEDURES: Bronchoscopy; airway examination; therapeutic lavage; BAL, right upper lobe; BAL, right lower lobe; brushes, right upper lobe; brushes, right lower lobe; endobronchial and transbronchial biopsies, right upper lobe; endobronchial and transbronchial biopsies, right lower lobe. PREOPERATIVE DIAGNOSIS: Rule out lung cancer. POSTOPERATIVE DIAGNOSIS: Rule out lung cancer. There was informed consent and universal time-out. The patient's procedure took place in room #1 [facility]. ANESTHESIA: Provided general anesthesia. FIRST MARINE PHOTOGRAPHER: Dr. Jennie Murphy. DESCRIPTION OF PROCEDURE: The patient was anesthetized by Anesthesia. The patient was being fully monitored. The bronchoscope was inserted through the bronchoscope adapter connected to the endotracheal tube. The bronchoscope was pushed through the endotracheal tube, out into the trachea. Tracheal robbie was sharp and normal appearing. Next, we did a thorough evaluation of the left lung. Left upper lobe and its 2 segments of lingula and its 2 segments in left lower lobe was 4 segments, all were found to be normal. On the right side, there were distinct abnormalities, particularly in the right upper lobe and right lower lobe. The right middle lobe appeared normal. In the right upper lobe, there was a lesion noted in one of the segments. The lesion appeared to be malignant in appearance. Also, the same type looking a lesion was also found in the right lower lobe. Next, under fluoroscopic guidance, we did brushes to the lesion in the right upper lobe. Subsequent to that, we did endobronchial and transbronchial biopsies to the lesion in the right upper lobe and then washes to the lesion in the right upper lobe. Both of these lesions were quite vascular and bled, although there was no significant bleeding once the procedure was completed. Likewise, in the right lower lobe lesion, similarly, we did brushes initially, and then multiple endobronchial and transbronchial biopsies to the lesion in the right lower lobe as well. Next, we did washes to the right lower lobe lesion as we did to the lesion in the right upper lobe. The samples were and labeled accordingly. There was minimal bleeding at the end of the procedure. We ensured hemostasis before the bronchoscope was withdrawn. The bronchoscope was withdrawn and the patient will be recovered. There was no immediate complication. MMODL / IJN: [id number] /
[2023-10-25] MEDS: ALPRAZolam 0.25 MG TAB PO PRN (22:42)
[2023-10-26] MEDS: PIPERACILLIN-TAZOBACTAM 3.375 GM in SODIUM CHLORIDE 0.9% 100 ML IVPB SCH ×4 (00:02→23:38)
[2023-10-26] MEDS: SODIUM CHLORIDE 0.9% 1,000 ML IV SCH ×2 (00:04→15:39)
[2023-10-26] MEDS: DEXAMETHASONE SOD PHOSPHATE 4 MG/ML 1 ML VIAL IVP SCH ×3 (05:36→21:15)
--- NOTE | 2023-10-26 06:59 | P.CONS ---
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 During workup for this, the patient was found to have a 2.8 cm right upper lung lesion which was suspicious. Possible early chapis disease was also seen. He underwent a CT-guided biopsy [facility] on March 11, which was consistent with adenocarcinoma. Following this biopsy, the patient was lost to follow-up despite multiple attempts to schedule an appointment. Unf ortunately, he now presents with an even larger right upper lung mass and numerous brain metastases. The patient reports that he has been feeling poorly for approximately 6 months. He complains of generalized weakness, poor appetite, nausea and a 20 pound weight loss. He reports no headaches, but has had increased difficulty with ambulation and some falls. He presented to the ER, a computed tomography scan of the chest, abdomen and pelvis performed on October 23 revealed a large, irregular right upper lung mass measuring 5.2 x 4 cm. There are also some interstitial changes in the right lower lobe which could be suspicious. An MRI of the brain performed on October 24 revealed a dominant 4.9 x 3.8 cm right frontal lobe mass with vasogenic edema, and multiple other supratentorial and infratentorial lesions measuring up to 1 cm. The patient did have a bone scan on October 24 which was negative. Earlier today, he underwent a bronchoscopy for which abnormal lesions are seen in both the right upper and right lower lobes. Biopsies are pending. At this time, the patient reports he still feels very weak overall. He has been initiated on dexamethasone, and cannot tell if this is made any difference in his generalized weakness. Review of Systems Constitutional: Denies fever Eyes: denies blurred vision Ears, nose, mouth and throat: Denies headache Cardiovascular: Reports dyspnea on exertion, Denies chest pain Respiratory: Reports cough, Reports dyspnea, Denies hemoptysis Gastrointestinal: Reports loss of appetite, Denies abdominal pain Musculoskeletal: Reports frequent falls, Reports muscle weakness Neurological: Reports gait dysfunction, Denies aphasia, Denies confusion, Denies headaches, Denies numbness, Denies paresthesias, Denies seizures Psychiatric: Denies anxiety Past Medical History Past Medical History: Cancer Additional Past Medical History / Comment(s): mouth CA, throat CA History of Any Multi-Drug Resistant Organisms: None Reported Past Surgical History: No Surgical Hx Reported Past Anesthesia/Blood Transfusion Reactions: No Reported Reaction Past Psychological History: No Psychological Hx Reported Smoking Status: Current every day smoker Past Alcohol Use History: Daily Past Drug Use History: Marijuana Medications and Allergies Home Medications Medication Instructions Recorded Confirmed Type No Known Home Medications 10/22/23 10/22/23 History Allergies Allergy/AdvReac Type Severity Reaction Status Date / Time No Known Allergies Allergy Verified 10/22/23 17:42 Physical Exam Vitals: Vital Signs Temp Pulse Pulse Resp BP BP Pulse Ox 10/26/23 02:00 98.9 F 70 16 117/65 95 10/25/23 22:46 109 H 16 114/72 100 10/25/23 17:50 100 119/78 10/25/23 17:20 101 H 110/71 98 10/25/23 16:50 98 116/93 98 10/25/23 16:35 103 H 114/72 96 10/25/23 16:15 103 H 120/79 97 10/25/23 16:05 100 119/76 97 10/25/23 15:50 123 H 118/73 97 10/25/23 15:15 102 H 16 158/65 100 10/25/23 15:00 110 H 16 142/72 100 10/25/23 14:46 100 16 179/109 100 10/25/23 13:31 97.5 F L 85 16 144/78 100 10/25/23 12:42 97.6 F 90 16 123/75 100 10/25/23 07:49 93 L 10/25/23 07:00 97.4 F L 88 16 114/76 98 FiO2 10/26/23 02:00 10/25/23 22:46 10/25/23 17:50 10/25/23 17:20 10/25/23 16:50 10/25/23 16:35 10/25/23 16:15 10/25/23 16:05 10/25/23 15:50 10/25/23 15:15 10/25/23 15:00 10/25/23 14:46 10/25/23 13:31 10/25/23 12:42 10/25/23 07:49 21 10/25/23 07:00 Intake and Output 10/25/23 10/25/23 10/26/23 14:59 22:59 06:59 Intake Total 200 Output Total 200 300 Balance 200 -200 -300 Intake: IV 200 Output: Urine 200 300 Other: Voiding Method Urinal External Catheter Diaper External Catheter # Voids 1 - Constitutional General appearance: thin - EENT Eyes: EOMI, PERRLA ENT: hearing grossly normal - Neck Neck: no lymphadenopathy - Respiratory Respiratory: right: diminished, left: CTA - Cardiovascular Rhythm: regular - Gastrointestinal General gastrointestinal: no distended - Integumentary Integumentary: pale - Neurologic Neurologic: CNII-XII intact - Musculoskeletal Musculoskeletal: generalized weakness (4/5 strength bilateral UE/LE, no focal weakness.) - Psychiatric Psychiatric: A&O x's 3, appropriate affect Results CBC & Chem 7: 10/24/23 06:55 10/24/23 06:55 Labs: Abnormal Lab Results - Last 24 Hours (Table) 10/25/23 10/25/23 Range/Units 17:05 21:18 POC Glucose (mg/dL) 140 H 189 H (70-110) mg/dL Microbiology - Last 24 Hours (Table) 10/23/23 12:04 Blood Culture - Preliminary Blood CT scan - abdomen: report reviewed, image reviewed CT scan - chest: report reviewed, image reviewed CT scan - pelvis: report reviewed, image reviewed MRI - head: report reviewed, image reviewed Assessment and Plan Assessment: The patient is a 58-year-old male initially treated for a 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 During workup for this, the patient was found to have a 2.8 cm right upper lung lesion which was suspicious. Possible early chapis disease was also seen. He underwent a CT-guided biopsy [facility] Saenz on March 11, which was consistent with adenocarcinoma. Following this biopsy, the patient was lost to follow-up despite multiple attempts to schedule an appointment. Unfortunately, he now presents with an even larger right upper lung mass and numerous brain metastases. Plan: 1. Brain metastases: This is highly likely to be related to his underlying non-small cell lung cancer. No evidence of recurrence from his prior oral cavity cancer. On my review, I am concerned that the imaging shows likely leptomeningeal involvement as well. In particular, the right frontal mass shows enhancement along the sulci, there is similar enhancement in the cerebellum. I discussed with the patient that treatment will involve whole brain radiation. I explained the possible associated toxicity. The patient expressed he was not very interested in any radiation. I explained that if this is the case, the patient would be appropriate for hospice referral. 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 I will discuss t his with the patient again this coming week. 2. Right upper lobe neoplasm: As stated above, the patient underwent bronchoscopy earlier today. However, on review of his chart from [facility], he previously had biopsy of the right upper lung lesion which was consistent with adenocarcinoma. The patient appears to had not followed up with any of his oncologists since 2019, implying this is progressive disease. The patient has significant performance status decline and presents with cachexia. I am skeptical of his ability to tolerate any meaningful therapy. Will discuss further with medical oncology. Time with Patient: Greater than 30
[2023-10-26 07:57] LABS: Glucose,Whole Blood 130 mg/dL (70-110)
[2023-10-26] MEDS: INSULIN ASPART (NovoLOG) 100 UNIT/ML VIAL SQ SCH ×4 (08:28→21:15)
[2023-10-26] MEDS: HEPARIN SODIUM,PORCINE 5,000 UNIT/ML 1 ML VIAL SQ SCH ×2 (08:31→21:15)
[2023-10-26] MEDS: NICOTINE 21MG/24HR PATCH TRANSDERM SCH (08:31)
--- NOTE | 2023-10-26 11:27 | P.PN ---
Subjective Progress Note Date: 10/26/23 58-year-old male who apparently presented to the emergency department on October 22, complaining of weakness, and failure to thrive. The patient apparently has had significant weight loss, and has a history of tongue cancer, and esophageal cancer. In addition, the patient apparently has either a mass or infiltrate in his lungs, and, we were asked to see the patient for possible biopsy. On room air, his saturations are 92%. He's getting saline at 75 mL an hour. He apparently does not have a family doctor. He is a heavy smoker, uses marijuana, and, is a heavy drinker of alcohol. His niece was in the room, and gave us this history. He apparently takes no medications at home. Here in the hospital, he's on duo nebs, Xanax, subcutaneous heparin, Ativan, morphine, Narcan, nicotine patch, Zofran, and Zosyn. White count 6.55, hemoglobin 8, hematocrit 26.6, and platelet count 508,000. Sodium 131, potassium 3.6, chlorides 99, CO2 22, anion gap 10, BUN less than 3.5, and creatinine 0.3. Pro- calcitonin level is 0.11. Chest x-ray on the day of admission, shows a patchy infiltrate in the right lung. Computed tomography scan of the brain revealed some vasogenic edema within the white matter of the right cerebral hemisphere as well as in the left frontal region. Computed tomography scan of the chest reveals a large irregular mass within the right upper lobe, and extensive airspace opacity in the right lower lobe. There are scattered pulmonary nodules within the left lung, potentially consistent with metastatic disease. Brain MRI shows multiple supra and infratentorial lesions, suspicious for metastatic disease. The patient is seen today 10/25/2023 and follow-up on the regular medical floor. He is currently resting in bed. Awake and alert in no acute distress. He is maintaining O2 saturations in the 90s on room air. He's been afebrile. Hemodynamically stable. Culture revealing no growth. Pro-calcitonin 0.11. MRI of the brain revealed multiple supra and infra tentorial lesions suspicious for metastatic disease. Bone scan revealed no osteoblastic metastatic disease. He's been initiated on Decadron. Radiation oncology consulted. He is scheduled for bronchoscopy with biopsies today. The patient is seen today 10/26/2023 in follow-up on the regular medical floor. He is awake and alert in no acute distress. He remains quite weak and debilitated. He is continued on bronchodilators. NicoDerm patch in place. Continue on antibiotics in the form of Zosyn. Normal saline at 75 ML's per hour. He's been initiated on Decadron to the metastatic brain lesions. They did undergo bronchoscopy and biopsies yesterday. Pathology pending. He had been seen and evaluated by radiation oncology. The patient is declining any treatment at this time. He had poor follow-ups in the past. He had been initially diagnosed at [facility] in 2019 for adenocarcinoma. He is maintaining good O2 saturations in the 90s on room air. Blood glucose 130. Objective - Vital Signs Vital signs: Vital Signs Temp 97.5 F L 10/26/23 08:00 Pulse 91 10/26/23 08:00 Resp 18 10/26/23 08:00 BP 131/75 10/26/23 08:00 Pulse Ox 99 10/26/23 08:00 FiO2 21 10/25/23 07:49 Intake & Output 10/25/23 10/26/23 10/26/23 18:59 06:59 18:59 Intake Total 200 120 Output Total 200 300 Balance 0 -300 120 Intake: IV 200 Oral 120 Output: Urine 200 300 Other: Voiding Method Urinal External Catheter External Catheter Diaper External Catheter # Voids 1 - Exam GENERAL EXAM: Alert, very cachectic 58-year-old male patient, resting in bed, on room air, in no apparent distress. HEAD: Normocephalic. EYES: Normal reaction of pupils, equal size. NOSE: Clear with pink turbinates. THROAT: No erythema or exudates. NECK: No masses, no JVD. CHEST: No chest wall deformity. LUNGS: Equal air entry with bilateral scattered rhonchi, diminished. CVS: S1 and S2 normal with no audible murmur, regular rhythm. ABDOMEN: No hepatosplenomegaly, normal bowel sounds, no guarding or rigidity. SPINE: No scoliosis or deformity SKIN: No rashes CENTRAL NERVOUS SYSTEM: No focal deficits, tone is normal in all 4 extremities. EXTREMITIES: There is no peripheral edema. No clubbing, no cyanosis. Peripheral pulses are intact. - Labs CBC & Chem 7: 10/24/23 06:55 10/24/23 06:55 Labs: Abnormal Lab Results - Last 24 Hours (Table) 10/25/23 10/25/23 10/26/23 Range/Units 17:05 21:18 07:50 POC Glucose (mg/dL) 140 H 189 H 130 H (70-110) mg/dL Microbiology - Last 24 Hours (Table) 10/23/23 12:04 Blood Culture - Preliminary Blood Assessment and Plan Assessment: History of lung cancer, with metastasis, to the central nervous system. MRI of the brain does reveal multiple metastatic lesions. Initiated on Decadron. Bone scan revealed no osseous lesions per History of tongue cancer, status post surgery. History of esophageal cancer. History of heavy tobacco use, rule out COPD. History of chronic alcohol use/abuse. Anemia. Hyponatremia. Noncompliance with medical care. Plan: The patient was seen and evaluated Medications reviewed Continue on Decadron Continue Zosyn for now, procalcitonin 0.11 Heparin for DVT prophylaxis The patient had been seen by radiation oncology but is declining treatment Apparently he had been lost to follow-up from previous diagnosis of cancer Plan may be for subacute rehab post discharge. Social work is following We will continue to follow This patient was seen independently by the nurse practitioner I have personally seen and examined the patient, performed the documentation and the assessment and plan as written. Number of minutes spent on the visit: 24.
[2023-10-26 12:12] LABS: Glucose,Whole Blood 166 mg/dL (70-110)
[2023-10-26 14:37] LABS: Appearance,BF Bloody (Clear); RBC, Body Fluid 29800 /UL (0-2000)
[2023-10-26 15:16] LABS: Appearance,BF Bloody (Clear); RBC, Body Fluid 43200 /UL (0-2000)
[2023-10-26 17:42] LABS: Glucose,Whole Blood 126 mg/dL (70-110)
[2023-10-26 20:44] LABS: Glucose,Whole Blood 202 mg/dL (70-110)
--- NOTE | 2023-10-26 21:11 | PN ---
PROGRESS NOTE DATE OF SERVICE: 10/26/2023 SUBJECTIVE: This is a 58-year-old gentleman, who was admitted with significant emaciation, also had possibly right upper lobe lung cancer with diffuse brain METS. The biopsy reports are pending at this time. Multiple consultants including Radiation Oncology and as well as Oncology following the patient closely. The patient continues to be confused, but slightly more alert at this time. The patient is on IV dexamethasone. PAST MEDICAL HISTORY: Reviewed. REVIEW OF SYSTEMS: Could not be taken. The patient is currently confused. HOME MEDICATIONS: Reviewed include IV dexamethasone. Dose and rest of medications noted. OBJECTIVE: VITAL SIGNS: Pulse is 91, blood pressure 131/74, respirations 18. HEENT: Conjunctivae normal. NECK: No JVD. CARDIOVASCULAR: S1, S2. RESPIRATIONS: A few scattered rhonchi. ABDOMEN: Soft. NERVOUS SYSTEM: Nonfocal. LABORATORY DATA: Hemoglobin 8, sodium noted. ASSESSMENT: 1. Significant emaciation, possible severe malnutrition. 2. Right upper lobe lung cancer, possibly with diffuse brain METS. 3. Possible right aspiration pneumonia, postobstructive pneumonia or gram-negative. 4. Diminished p.o. intake. 5. Oral and throat cancer history. 6. History of nicotine dependence. 7. History of EtOH. 8. History of THC. 9. Anemia, possibly secondary to malignancy. 10.Full code. RECOMMENDATIONS: Recommend to continue current management. Continue symptomatic treatment. We will await the biopsy report. Otherwise, continue the dexamethasone at this time and monitor blood sugars closely. Repeat labs. We will cut down the IV fluids. Closely monitor. Further recommendations to follow. MMODL / IJN: [id number] /
[2023-10-26] MEDS: ALPRAZolam 0.25 MG TAB PO PRN (21:16)
[2023-10-27] MEDS: DEXAMETHASONE SOD PHOSPHATE 4 MG/ML 1 ML VIAL IVP SCH ×3 (04:20→20:55)
[2023-10-27 07:11] LABS: Glucose,Whole Blood 139 mg/dL (70-110)
[2023-10-27] MEDS: HEPARIN SODIUM,PORCINE 5,000 UNIT/ML 1 ML VIAL SQ SCH ×2 (07:14→20:54)
[2023-10-27] MEDS: NICOTINE 21MG/24HR PATCH TRANSDERM SCH (07:14)
[2023-10-27] MEDS: PIPERACILLIN-TAZOBACTAM 3.375 GM in SODIUM CHLORIDE 0.9% 100 ML IVPB SCH ×3 (07:14→23:54)
[2023-10-27] MEDS: ALPRAZolam 0.25 MG TAB PO PRN (07:40)
[2023-10-27] MEDS: INSULIN ASPART (NovoLOG) 100 UNIT/ML VIAL SQ SCH ×4 (07:42→20:59)
[2023-10-27 07:52] LABS: Basophils % (A) 0 %; Eosinophils % (A) 0 %; HCT 24.5 % (39.0-53.0); HGB 7.4 gm/dL (13.0-17.5); Hypochromasia Marked; Lymphocytes # (A) 0.5 k/uL (1.0-4.8); Lymphocytes % (A) 6 %; MCH 25.8 pg (25.0-35.0); MCHC 30.3 g/dL (31.0-37.0); MCV 85.2 fL (80.0-100.0); Mean Platelet Volume 7.8; Monocytes # (A) 0.3 k/uL (0-1.0); Monocytes % (A) 3 %; Neutrophils # (A) 6.9 k/uL (1.3-7.7); Neutrophils % (A) 90 %; Platelet Count 510 k/uL (150-450); RBC 2.88 m/uL (4.30-5.90); RDW 14.5 % (11.5-15.5); WBC 7.7 k/uL (3.8-10.6)
[2023-10-27 11:09] LABS: African American GFR (CKD) >90 (>60 ml/min/1.73 sqM); Anion Gap 6 mmol/L; Blood Urea Nitrogen 5 mg/dL (9-20); Calcium 7.9 mg/dL (8.4-10.2); Carbon Dioxide 24 mmol/L (22-30); Chloride 99 mmol/L (98-107); Glucose 117 mg/dL (74-99); Non-African American GFR(CKD) >90 (>60 ml/min/1.73 sqM); Sodium 129 mmol/L (137-145)
--- NOTE | 2023-10-27 11:37 | P.PN ---
Subjective Progress Note Date: 10/27/23 58-year-old male who apparently presented to the emergency department on October 22, complaining of weakness, and failure to thrive. The patient apparently has had significant weight loss, and has a history of tongue cancer, and esophageal cancer. In addition, the patient apparently has either a mass or infiltrate in his lungs, and, we were asked to see the patient for possible biopsy. On room air, his saturations are 92%. He's getting saline at 75 mL an hour. He apparently does not have a family doctor. He is a heavy smoker, uses marijuana, and, is a heavy drinker of alcohol. His niece was in the room, and gave us this history. He apparently takes no medications at home. Here in the hospital, he's on duo nebs, Xanax, subcutaneous heparin, Ativan, morphine, Narcan, nicotine patch, Zofran, and Zosyn. White count 6.55, hemoglobin 8, hematocrit 26.6, and platelet count 508,000. Sodium 131, potassium 3.6, chlorides 99, CO2 22, anion gap 10, BUN less than 3.5, and creatinine 0.3. Pro- calcitonin level is 0.11. Chest x-ray on the day of admission, shows a patchy infiltrate in the right lung. Computed tomography scan of the brain revealed some vasogenic edema within the white matter of the right cerebral hemisphere as well as in the left frontal region. Computed tomography scan of the chest reveals a large irregular mass within the right upper lobe, and extensive airspace opacity in the right lower lobe. There are scattered pulmonary nodules within the left lung, potentially consistent with metastatic disease. Brain MRI shows multiple supra and infratentorial lesions, suspicious for metastatic disease. The patient is seen today 10/25/2023 and follow-up on the regular medical floor. He is currently resting in bed. Awake and alert in no acute distress. He is maintaining O2 saturations in the 90s on room air. He's been afebrile. Hemodynamically stable. Culture revealing no growth. Pro-calcitonin 0.11. MRI of the brain revealed multiple supra and infra tentorial lesions suspicious for metastatic disease. Bone scan revealed no osteoblastic metastatic disease. He's been initiated on Decadron. Radiation oncology consulted. He is scheduled for bronchoscopy with biopsies today. The patient is seen today 10/26/2023 in follow-up on the regular medical floor. He is awake and alert in no acute distress. He remains quite weak and debilitated. He is continued on bronchodilators. NicoDerm patch in place. Continue on antibiotics in the form of Zosyn. Normal saline at 75 ML's per hour. He's been initiated on Decadron to the metastatic brain lesions. They did undergo bronchoscopy and biopsies yesterday. Pathology pending. He had been seen and evaluated by radiation oncology. The patient is declining any treatment at this time. He had poor follow-ups in the past. He had been initially diagnosed at [facility] in 2019 for adenocarcinoma. He is maintaining good O2 saturations in the 90s on room air. Blood glucose 130. The patient is seen today 10/27/2023 in follow-up on the regular medical floor. He is resting comfortably in bed. Awake and alert in no acute distress. He denies any worsening shortness of breath, cough or congestion. Denies any pain currently. He is maintaining O2 saturations in the 90s on room air. He is normal saline at 40 miles per hour. His pro calcitonin was 0.11. He is continued on Zosyn. Bronchial wash cultures are pending. Biopsy pathology pending. Though again later to find out he was positive for adenocarcinoma [facility] in 2019. Unclear if he did any treatment at all. White count 7.7. Hemoglobin 7.4. Platelets 510. Sodium 129. Potassium 4.0. Bicarb 24. BUN 5. Creatinine 0.23. Glucose 117. He remains on heparin for DVT prophylaxis. NicoDerm patch in place. Objective - Vital Signs Vital signs: Vital Signs Temp 97.4 F L 10/27/23 07:07 Pulse 89 10/27/23 07:07 Resp 18 10/27/23 07:07 BP 136/79 10/27/23 07:07 Pulse Ox 99 10/27/23 07:07 FiO2 21 10/25/23 07:49 Intake & Output 10/26/23 10/27/23 10/27/23 18:59 06:59 18:59 Intake Total 710 710 Output Total 900 Balance 710 -190 Intake: Oral 710 710 Output: Urine 900 Other: Voiding Method External Catheter External Catheter External Catheter # Voids 2 1 - Exam GENERAL EXAM: Alert, cachectic 58-year-old male patient, on room air, in no apparent distress. HEAD: Normocephalic. EYES: Normal reaction of pupils, equal size. NOSE: Clear with pink turbinates. THROAT: No erythema or exudates. NECK: No masses, no JVD. CHEST: No chest wall deformity. LUNGS: Equal air entry with bilateral scattered rhonchi, diminished. CVS: S1 and S2 normal with no audible murmur, regular rhythm. ABDOMEN: No hepatosplenomegaly, normal bowel sounds, no guarding or rigidity. SPINE: No scoliosis or deformity SKIN: No rashes CENTRAL NERVOUS SYSTEM: No focal deficits, tone is normal in all 4 extremities. EXTREMITIES: There is no peripheral edema. No clubbing, no cyanosis. Peripheral pulses are intact. - Labs CBC & Chem 7: 10/27/23 07:14 10/27/23 07:14 Labs: Abnormal Lab Results - Last 24 Hours (Table) 10/25/23 10/25/23 10/26/23 Range/Units 14:15 14:20 11:47 RBC (4.30-5.90) m/uL Hgb (13.0-17.5) gm/dL Hct (39.0-53.0) % MCHC (31.0-37.0) g/dL Plt Count (150-450) k/uL Lymphocytes # (1.0-4.8) k/uL Sodium (137-145) mmol/L BUN (9-20) mg/dL Creatinine (0.66-1.25) mg/dL Glucose (74-99) mg/dL POC Glucose (mg/dL) 166 H (70-110) mg/dL Calcium (8.4-10.2) mg/dL Fluid Appearance Bloody A Bloody A (Clear) 10/26/23 10/26/23 10/27/23 Range/Units 17:38 20:37 07:09 RBC (4.30-5.90) m/uL Hgb (13.0-17.5) gm/dL Hct (39.0-53.0) % MCHC (31.0-37.0) g/dL Plt Count (150-450) k/uL Lymphocytes # (1.0-4.8) k/uL Sodium (137-145) mmol/L BUN (9-20) mg/dL Creatinine (0.66-1.25) mg/dL Glucose (74-99) mg/dL POC Glucose (mg/dL) 126 H 202 H 139 H (70-110) mg/dL Calcium (8.4-10.2) mg/dL Fluid Appearance (Clear) 10/27/23 10/27/23 Range/Units 07:14 07:14 RBC 2.88 L (4.30-5.90) m/uL Hgb 7.4 L (13.0-17.5) gm/dL Hct 24.5 L (39.0-53.0) % MCHC 30.3 L (31.0-37.0) g/dL Plt Count 510 H (150-450) k/uL Lymphocytes # 0.5 L (1.0-4.8) k/uL Sodium 129 L (137-145) mmol/L BUN 5 L (9-20) mg/dL Creatinine 0.23 L (0.66-1.25) mg/dL Glucose 117 H (74-99) mg/dL POC Glucose (mg/dL) (70-110) mg/dL Calcium 7.9 L (8.4-10.2) mg/dL Fluid Appearance (Clear) Microbiology - Last 24 Hours (Table) 10/25/23 14:15 Gram Stain - Preliminary Bronchoalviolar Lavage - Right Bronchial Washings Culture - Preliminary 10/25/23 14:20 Gram Stain - Preliminary Bronchoalviolar Lavage - Left Bronchial Washings Culture - Preliminary 10/25/23 14:15 Acid Fast Bacilli Smear - Preliminary Bronchoalviolar Lavage - Right 10/25/23 14:20 Acid Fast Bacilli Smear - Preliminary Bronchoalviolar Lavage - Left 10/23/23 12:04 Blood Culture - Preliminary Blood Assessment and Plan Assessment: History of lung cancer, with metastasis, to the central nervous system. MRI of the brain does reveal multiple metastatic lesions. Initiated on Decadron. Bone scan revealed no osseous lesions History of tongue cancer, status post surgery History of esophageal cancer History of heavy tobacco use, suspect COPD History of chronic alcohol use/abuse Anemia Hyponatremia Noncompliance with medical care Plan: The patient was seen and evaluated Medications reviewed Continue on Decadron Continue Zosyn Heparin for DVT prophylaxis Seen by radiation oncology but is declining treatment Plan may be for subacute rehab post discharge We will continue to follow This patient was seen independently by the nurse practitioner I have personally seen and examined the patient, performed the documentation and the assessment and plan as written. Number of minutes spent on the visit: 22.
[2023-10-27] MEDS: LORazepam 2 MG/ML INJ IV PRN ×2 (12:25→19:14)
[2023-10-27 12:42] LABS: Glucose,Whole Blood 106 mg/dL (70-110)
--- NOTE | 2023-10-27 15:38 | P.PN ---
Subjective Progress Note Date: 10/26/23 Principal diagnosis: Reason for follow-up of his abnormal CT and question of pneumonia Patient is a 58-year-old male with a past medical history significant for mouth and throat cancer presented to the hospital for evaluation of significant weakness the patient did have a failure to thrive and significant weight loss , patient did have significant abnormality on the CT with large irregular mass within upper lobe suspicious for malignancy with extensive airspace opacity possible pneumonia, the patient is status post bronchoscopy biopsy and was completed on 10/25/2023 On today's evaluation that is 10/26/2023 the patient continues to be afebrile, the patient is breathing comfortably on room air and denies any shortness of breath, the patient denies chest pain or cough, patient denies abdominal pain, no nausea/vomiting or diarrhea. patient did have a white count of 6.55, creatinine 0.3 as of 10/24/2023, CRP is 8.10, pro calcitonin 0.11 Objective - Vital Signs Vital signs: Vital Signs Temp 97.5 F L 10/26/23 08:00 Pulse 91 10/26/23 08:00 Resp 18 10/26/23 08:00 BP 131/75 10/26/23 08:00 Pulse Ox 99 10/26/23 08:00 FiO2 21 10/25/23 07:49 Intake & Output 10/25/23 10/26/23 10/26/23 18:59 06:59 18:59 Intake Total 200 120 Output Total 200 300 Balance 0 -300 120 Intake: IV 200 Oral 120 Output: Urine 200 300 Other: Voiding Method Urinal External Catheter External Catheter Diaper External Catheter # Voids 1 - Exam GENERAL DESCRIPTION: Middle-aged male lying in bed in no distress RESPIRATORY SYSTEM: Unlabored breathing , decreased intensity of breath sounds HEART: S1 S2 regular rate and rhythm , ABDOMEN: Soft , no tenderness EXTREMITIES: No edema feet - Labs CBC & Chem 7: 10/27/23 07:14 10/27/23 07:14 Labs: Abnormal Lab Results - Last 24 Hours (Table) 10/25/23 10/25/23 10/26/23 Range/Units 17:05 21:18 07:50 POC Glucose (mg/dL) 140 H 189 H 130 H (70-110) mg/dL 10/26/23 Range/Units 11:47 POC Glucose (mg/dL) 166 H (70-110) mg/dL Microbiology - Last 24 Hours (Table) 10/23/23 12:04 Blood Culture - Preliminary Blood Assessment and Plan (1) Lung mass Current Visit: Yes Status: Acute Priority: High Code(s): R91.8 - OTHER NONSPECIFIC ABNORMAL FINDING OF LUNG FIELD SNOMED Code(s): 699013284 (2) Pneumonia Current Visit: Yes Status: Acute Code(s): J18.9 - PNEUMONIA, UNSPECIFIED ORGANISM SNOMED Code(s): 327005530 Plan: 1patient is in the hospital with weakness history of malignancy and noticed to have a significant abnormality on the CT of the chest with a large irregular mass right upper lobe likely concerning for malignancy and concerning for possible component of postobstructive pneumonia 2-patient is status post bronchoscopy biopsy and lavage cultures are currently pending 3-patient to continue with Zosyn 3.375 g every 8 hours to continue while waiting for cultures to finalize Dictation was produced using [employer] dictation software. please excuse any grammatical, word or spelling errors. Time with Patient: Less than 30
--- NOTE | 2023-10-27 15:39 | P.PN ---
Subjective Progress Note Date: 10/27/23 Principal diagnosis: Reason for follow-up of his abnormal CT and question of pneumonia Patient is a 58-year-old male with a past medical history significant for mouth and throat cancer presented to the hospital for evaluation of significant weakness the patient did have a failure to thrive and significant weight loss , patient did have significant abnormality on the CT with large irregular mass within upper lobe suspicious for malignancy with extensive airspace opacity possible pneumonia, the patient is status post bronchoscopy biopsy and was completed on 10/25/2023 On today's evaluation that is 10/27/2023 the patient denies any fever or any chills, the patient denies shortness of breath chest pain or cough, the patient nausea/vomiting or diarrhea and no abdominal pain. patient did have a white count of 7.7, creatinine 0.23, CRP is 8.10, pro calcitonin 0.11 Objective - Vital Signs Vital signs: Vital Signs Temp 97.3 F L 10/27/23 12:20 Pulse 91 10/27/23 12:20 Resp 18 10/27/23 12:20 BP 142/80 10/27/23 12:20 Pulse Ox 99 10/27/23 12:20 FiO2 21 10/25/23 07:49 Intake & Output 10/26/23 10/27/23 10/27/23 18:59 06:59 18:59 Intake Total 710 710 Output Total 900 Balance 710 -190 Intake: Oral 710 710 Output: Urine 900 Other: Voiding Method External Catheter External Catheter External Catheter # Voids 2 1 - Exam GENERAL DESCRIPTION: Middle-aged male lying in bed in no distress RESPIRATORY SYSTEM: Unlabored breathing , decreased intensity of breath sounds HEART: S1 S2 regular rate and rhythm , ABDOMEN: Soft , no tenderness EXTREMITIES: No edema feet - Labs CBC & Chem 7: 10/27/23 07:14 10/27/23 07:14 Labs: Abnormal Lab Results - Last 24 Hours (Table) 10/26/23 10/26/23 10/27/23 Range/Units 17:38 20:37 07:09 RBC (4.30-5.90) m/uL Hgb (13.0-17.5) gm/dL Hct (39.0-53.0) % MCHC (31.0-37.0) g/dL Plt Count (150-450) k/uL Lymphocytes # (1.0-4.8) k/uL Sodium (137-145) mmol/L BUN (9-20) mg/dL Creatinine (0.66-1.25) mg/dL Glucose (74-99) mg/dL POC Glucose (mg/dL) 126 H 202 H 139 H (70-110) mg/dL Calcium (8.4-10.2) mg/dL 10/27/23 10/27/23 Range/Units 07:14 07:14 RBC 2.88 L (4.30-5.90) m/uL Hgb 7.4 L (13.0-17.5) gm/dL Hct 24.5 L (39.0-53.0) % MCHC 30.3 L (31.0-37.0) g/dL Plt Count 510 H (150-450) k/uL Lymphocytes # 0.5 L (1.0-4.8) k/uL Sodium 129 L (137-145) mmol/L BUN 5 L (9-20) mg/dL Creatinine 0.23 L (0.66-1.25) mg/dL Glucose 117 H (74-99) mg/dL POC Glucose (mg/dL) (70-110) mg/dL Calcium 7.9 L (8.4-10.2) mg/dL Microbiology - Last 24 Hours (Table) 10/25/23 14:15 Gram Stain - Preliminary Bronchoalviolar Lavage - Right Bronchial Washings Culture - Preliminary 10/25/23 14:20 Gram Stain - Preliminary Bronchoalviolar Lavage - Left Bronchial Washings Culture - Preliminary 10/25/23 14:15 Acid Fast Bacilli Smear - Preliminary Bronchoalviolar Lavage - Right 10/25/23 14:20 Acid Fast Bacilli Smear - Preliminary Bronchoalviolar Lavage - Left 10/23/23 12:04 Blood Culture - Preliminary Blood Assessment and Plan (1) Lung mass Current Visit: Yes Status: Acute Priority: High Code(s): R91.8 - OTHER NONSPECIFIC ABNORMAL FINDING OF LUNG FIELD SNOMED Code(s): 774995688 (2) Pneumonia Current Visit: Yes Status: Acute Code(s): J18.9 - PNEUMONIA, UNSPECIFIED ORGANISM SNOMED Code(s): 087652383 Plan: 1patient is in the hospital with weakness history of malignancy and noticed to have a significant abnormality on the CT of the chest with a large irregular mass right upper lobe likely concerning for malignancy and concerning for possible component of postobstructive pneumonia 2-patient is status post bronchoscopy biopsy and lavage cultures are currently pending 3-patient to continue the current treatment of Zosyn 3.375 g every 8 hours to continue while waiting for cultures to finalize Dictation was produced using [employer] dictation software. please excuse any grammatical, word or spelling errors. Time with Patient: Less than 30
--- NOTE | 2023-10-27 16:14 | PN ---
PROGRESS NOTE DATE OF SERVICE: 10/27/2023 SUBJECTIVE: This is a 58-year-old gentleman, who was admitted with possible upper lobe lung cancer with brain metastasis. He is being closely monitored at this time. No chest pain. No palpitation. No fever. PHYSICAL EXAMINATION: GENERAL: The patient is confused. VITAL SIGNS: Pulse is 91, blood pressure 142/80, respirations 18. CHEST: Few scattered rhonchi and crackles. ABDOMEN: Soft. NERVOUS SYSTEM: Diffusely weak and emaciated. LABORATORY DATA: Hemoglobin 7.4. ASSESSMENT: 1. Possible right upper lobe lung cancer with multiple brain metastases. 2. Significant emaciation, possible severe malnutrition. 3. Right aspiration pneumonia and also postobstructive pneumonia, possibly gram- negative. 4. Diminished p.o. intake. 5. Oral and throat cancer history. 6. History of nicotine dependence. 7. History of EtOH. 8. History of THC. 9. Anemia, possibly secondary to malignancy. 10.Full code. RECOMMENDATIONS: Recommend to continue current medications. Continue symptomatic treatment. Continue with antibiotics. Continue with rest of medications and steroids. Repeat labs will be ordered. Guarded prognosis. Further recommendations to follow. Closely follow with Hematology-Oncology and Radiation-Oncology. MMODL / IJN: [id number] /
[2023-10-27 17:26] LABS: Glucose,Whole Blood 130 mg/dL (70-110)
[2023-10-27 20:35] LABS: Glucose,Whole Blood 146 mg/dL (70-110)
[2023-10-27] MEDS: SODIUM CHLORIDE 0.9% 1,000 ML IV SCH (20:56)
[2023-10-28] MEDS: LORazepam 2 MG/ML INJ IV PRN (00:21)
[2023-10-28] MEDS: DEXAMETHASONE SOD PHOSPHATE 4 MG/ML 1 ML VIAL IVP SCH ×3 (04:03→20:06)
[2023-10-28 07:02] LABS: Glucose,Whole Blood 131 mg/dL (70-110)
[2023-10-28] MEDS: PIPERACILLIN-TAZOBACTAM 3.375 GM in SODIUM CHLORIDE 0.9% 100 ML IVPB SCH ×2 (07:16→15:53)
[2023-10-28] MEDS: HEPARIN SODIUM,PORCINE 5,000 UNIT/ML 1 ML VIAL SQ SCH ×2 (07:17→20:06)
[2023-10-28] MEDS: NICOTINE 21MG/24HR PATCH TRANSDERM SCH (07:17)
[2023-10-28] MEDS: INSULIN ASPART (NovoLOG) 100 UNIT/ML VIAL SQ SCH ×4 (08:22→21:30)
[2023-10-28 10:43] LABS: Basophils # (A) 0 X 10*3/uL (0.00-0.10); Basophils % (A) 0 %; Eosinophils # (A) 0 X 10*3/uL (0.04-0.35); Eosinophils % (A) 0 %; HCT 24.7 % (39.6-50.0); HGB 7.4 g/dL (13.0-17.0); Lymphocytes # (A) 0.39 X 10*3/uL (0.90-5.00); Lymphocytes % (A) 5.3 %; MCH 25.1 pg (27.0-32.0); MCV 83.7 FL (80.0-97.0); Mean Platelet Volume 9.6 FL (9.5-12.2); Monocytes # (A) 0.57 X 10*3/uL (0.20-1.00); Monocytes % (A) 7.7 %; NRBC Per 100 WBC 0 X 10*3/uL (0.00-0.01); Neutrophils # (A) 6.42 X 10*3/uL (1.80-7.70); Neutrophils % (A) 86.5 %; Platelet Count 516 X 10*3/uL (140-440); RBC 2.95 X 10*6/uL (4.40-5.60); RDW 14.6 % (11.5-14.5); WBC 7.42 X 10*3/uL (4.50-10.00)
[2023-10-28 11:08] LABS: BUN/Creat Ratio 14.67 Ratio (12.00-20.00); Blood Urea Nitrogen 4.4 mg/dL (9.0-27.0); Calcium 8.4 mg/dL (8.7-10.3); Carbon Dioxide 24.2 mmol/L (21.6-31.8); Chloride 99 mmol/L (96-109); Glucose 112 mg/dL (70-110); Potassium 4.2 mmol/L (3.5-5.5); Sodium 131 mmol/L (135-145)
[2023-10-28 11:49] LABS: Glucose,Whole Blood 119 mg/dL (70-110)
--- NOTE | 2023-10-28 15:25 | P.PN ---
Subjective Progress Note Date: 10/28/23 At today's visit patient is more somnolent. Patient reporting feeling very fatigued. Denies pain. Objective - Vital Signs Vital signs: Vital Signs Temp 97.9 F 10/28/23 12:28 Pulse 77 10/28/23 12:28 Resp 16 10/28/23 12:28 BP 116/71 10/28/23 12:28 Pulse Ox 100 10/28/23 12:28 FiO2 21 10/25/23 07:49 Intake & Output 10/27/23 10/28/23 10/28/23 18:59 06:59 18:59 Intake Total 1170 Output Total 400 Balance 1170 -400 Weight 42.864 kg Intake: Intake, IV Titration 580 Amount Piperacillin-Tazobactam 3 100 .375 gm In Sodium Chloride 0.9% 100 ml @ 25 mls/hr IVPB Q8HR [facility] Rx# :[id number] Sodium Chloride 0.9% 1, 480 000 ml @ 40 mls/hr IV . Q24H [facility] Rx#:[id number] Oral 590 Output: Urine 400 Other: Voiding Method External Catheter External Catheter External Catheter # Voids 1 - Constitutional General appearance: Present: no acute distress, thin - Respiratory Details: Breathing even and unlabored - Cardiovascular Details: skin warm and dry - Integumentary Integumentary: Absent: cyanotic - Musculoskeletal Musculoskeletal: Present: generalized weakness - Psychiatric Psychiatric Comment(s): somnolent - Labs CBC & Chem 7: 10/28/23 07:36 10/28/23 07:36 Labs: Abnormal Lab Results - Last 24 Hours (Table) 10/27/23 10/27/23 10/28/23 Range/Units 17:02 20:31 07:00 RBC (4.40-5.60) X 10*6/uL Hgb (13.0-17.0) g/dL Hct (39.6-50.0) % MCH (27.0-32.0) pg MCHC (32.0-37.0) g/dL RDW (11.5-14.5) % Plt Count (140-440) X 10*3/uL Lymphocytes # (0.90-5.00) X 10*3/uL Eosinophils # (0.04-0.35) X 10*3/uL Sodium (135-145) mmol/L BUN (9.0-27.0) mg/dL Creatinine (0.6-1.5) mg/dL Glucose (70-110) mg/dL POC Glucose (mg/dL) 130 H 146 H 131 H (70-110) mg/dL Calcium (8.7-10.3) mg/dL 10/28/23 10/28/23 10/28/23 Range/Units 07:36 07:36 11:47 RBC 2.95 L (4.40-5.60) X 10*6/uL Hgb 7.4 L (13.0-17.0) g/dL Hct 24.7 L (39.6-50.0) % MCH 25.1 L (27.0-32.0) pg MCHC 30.0 L (32.0-37.0) g/dL RDW 14.6 H (11.5-14.5) % Plt Count 516 H (140-440) X 10*3/uL Lymphocytes # 0.39 L (0.90-5.00) X 10*3/uL Eosinophils # 0 L (0.04-0.35) X 10*3/uL Sodium 131 L (135-145) mmol/L BUN 4.4 L (9.0-27.0) mg/dL Creatinine 0.3 L (0.6-1.5) mg/dL Glucose 112 H (70-110) mg/dL POC Glucose (mg/dL) 119 H (70-110) mg/dL Calcium 8.4 L (8.7-10.3) mg/dL Microbiology - Last 24 Hours (Table) 10/25/23 14:20 Gram Stain - Final Bronchoalviolar Lavage - Left Bronchial Washings Culture - Final 10/25/23 14:15 Gram Stain - Final Bronchoalviolar Lavage - Right Bronchial Washings Culture - Final Assessment and Plan (1) History of head and neck cancer Current Visit: Yes Status: Acute Priority: High Code(s): Z85.89 - PERSONAL HISTORY OF MALIGNANT NEOPLASM OF ORGANS AND SYSTEMS SNOMED Code(s): 805422168 (2) Lung mass Current Visit: Yes Status: Acute Priority: High Code(s): R91.8 - OTHER NONSPECIFIC ABNORMAL FINDING OF LUNG FIELD SNOMED Code(s): 154393854 (3) Weakness Current Visit: Yes Status: Acute Priority: High Code(s): R53.1 - WEAKNESS SNOMED Code(s): 99004829 (4) Metastasis to brain Current Visit: Yes Status: Acute Priority: High Code(s): C79.31 - SECONDARY MALIGNANT NEOPLASM OF BRAIN SNOMED Code(s): 42646419 Plan: Tongue cancer: -History of tongue cancer. History is somewhat limited as patient is a poor historian. Underwent surgical resection with ENT, Dr. Tobias, but reports he did not receive systemic treatment or XRT. -Now reporting progressing weakness, weight loss, failure to thrive over the last 6 months Lung mass/brain mets: -CT chest abdomen pelvis revealed large irregular mass within the right upper lobe. Extensive airspace opacity also seen within the right lower lobe which h as a masslike appearance. Scattered small pulmonary nodules seen within the left lung. Small right paratracheal lymph node. CT brain showed what appears to be some vasogenic edema within the right matter of the right cerebral hemisphere as well as the left frontal region which could represent potentially metastatic lesions however incompletely evaluated without contrast. Results and concerns of malignancy were discussed with patient -Pulmonology consulted for evaluation for lung biopsy, to r/o new primary vs recurrence of disease. S/p bronchoscopy, path pending -Brain MRI and bone scan obtained for further staging of disease. Brain MRI revealed multiple supra and infratentorial lesions with surrounding vasogenic edema. Bone scan negative for osteoblastic metastatic disease -Decadron 4mg TID started. -Rad/onc consulted. Spoke with Dr. Grimm regarding case, he recommended whole brain radiation, however patient stated he did not think he wanted to undergo radiation. Dr. Grimm plans to speak with family further regarding same. Dr. Grimm was able to review records from [facility] and states patient was diagnosed with lung adenocarcinoma approximately 3 years ago but never had any follow-up despite multiple attempts of reaching patient -Will await pathology and will have to speak with family further about goals of care and possible comfort care due to extent of disease and patients poor performance status
--- NOTE | 2023-10-28 15:41 | P.PN ---
Subjective Progress Note Date: 10/28/23 58-year-old male who apparently presented to the emergency department on October 22, complaining of weakness, and failure to thrive. The patient apparently has had significant weight loss, and has a history of tongue cancer, and esophageal cancer. In addition, the patient apparently has either a mass or infiltrate in his lungs, and, we were asked to see the patient for possible biopsy. On room air, his saturations are 92%. He's getting saline at 75 mL an hour. He apparently does not have a family doctor. He is a heavy smoker, uses marijuana, and, is a heavy drinker of alcohol. His niece was in the room, and gave us this history. He apparently takes no medications at home. Here in the hospital, he's on duo nebs, Xanax, subcutaneous heparin, Ativan, morphine, Narcan, nicotine patch, Zofran, and Zosyn. White count 6.55, hemoglobin 8, hematocrit 26.6, and platelet count 508,000. Sodium 131, potassium 3.6, chlorides 99, CO2 22, anion gap 10, BUN less than 3.5, and creatinine 0.3. Pro- calcitonin level is 0.11. Chest x-ray on the day of admission, shows a patchy infiltrate in the right lung. Computed tomography scan of the brain revealed some vasogenic edema within the white matter of the right cerebral hemisphere as well as in the left frontal region. Computed tomography scan of the chest reveals a large irregular mass within the right upper lobe, and extensive airspace opacity in the right lower lobe. There are scattered pulmonary nodules within the left lung, potentially consistent with metastatic disease. Brain MRI shows multiple supra and infratentorial lesions, suspicious for metastatic disease. The patient is seen today 10/25/2023 and follow-up on the regular medical floor. He is currently resting in bed. Awake and alert in no acute distress. He is maintaining O2 saturations in the 90s on room air. He's been afebrile. Hemodynamically stable. Culture revealing no growth. Pro-calcitonin 0.11. MRI of the brain revealed multiple supra and infra tentorial lesions suspicious for metastatic disease. Bone scan revealed no osteoblastic metastatic disease. He's been initiated on Decadron. Radiation oncology consulted. He is scheduled for bronchoscopy with biopsies today. The patient is seen today 10/26/2023 in follow-up on the regular medical floor. He is awake and alert in no acute distress. He remains quite weak and debilitated. He is continued on bronchodilators. NicoDerm patch in place. Continue on antibiotics in the form of Zosyn. Normal saline at 75 ML's per hour. He's been initiated on Decadron to the metastatic brain lesions. They did undergo bronchoscopy and biopsies yesterday. Pathology pending. He had been seen and evaluated by radiation oncology. The patient is declining any treatment at this time. He had poor follow-ups in the past. He had been initially diagnosed at [facility] in 2019 for adenocarcinoma. He is maintaining good O2 saturations in the 90s on room air. Blood glucose 130. The patient is seen today 10/27/2023 in follow-up on the regular medical floor. He is resting comfortably in bed. Awake and alert in no acute distress. He denies any worsening shortness of breath, cough or congestion. Denies any pain currently. He is maintaining O2 saturations in the 90s on room air. He is normal saline at 40 miles per hour. His pro calcitonin was 0.11. He is continued on Zosyn. Bronchial wash cultures are pending. Biopsy pathology pending. Though again later to find out he was positive for adenocarcinoma [facility] in 2019. Unclear if he did any treatment at all. White count 7.7. Hemoglobin 7.4. Platelets 510. Sodium 129. Potassium 4.0. Bicarb 24. BUN 5. Creatinine 0.23. Glucose 117. He remains on heparin for DVT prophylaxis. NicoDerm patch in place. 10/28/2023, the patient is being seen for a follow-up. Resting comfortably in bed and is currently on room air oxygen with a pulse ox of 100%. Afebrile. Hemodynamically stable. No shortness of breath. The white cell count is at 7.4, hemoglobin at 7.4, the sodium level is at 131, BUN is at 4 with a creatinine of 0.3. He is somnolent. He is fatigued. Oral intake is minimal at this point in time. Overall, very much debilitated. Note that a computed tomography scan of the chest abdomen and pelvis showed a large irregular mass in the right upper lobe. Extensive airspace disease involving the right lower lobe with a masslike appearance. Scattered bilateral pulmonary smaller nodules were seen on the left and smaller paratracheal lymph nodes were also seen. CAT scan of the brain also showed vasogenic edema within the right matter of the right cerebral hemisphere as well as the left frontal region compatible with metastatic disease. The patient underwent another bronchoscopy and biopsy and the pathology still pending for now. He remains on Decadron 4 mg 3 times a day. The patient was also seen by radiation oncology. The patient himself did not want to undergo radiation therapy. Apparently, the patient was diagnosed having adenocarcinoma of the lungs 3 years ago but he never wanted any treatment despite attempts of reaching out to this patient. He is being considered for hospice/comfort care measures. Objective - Vital Signs Vital signs: Vital Signs Temp 97.9 F 10/28/23 12:28 Pulse 77 10/28/23 12:28 Resp 16 10/28/23 12:28 BP 116/71 10/28/23 12:28 Pulse Ox 100 10/28/23 12:28 FiO2 21 10/25/23 07:49 Intake & Output 10/27/23 10/28/23 10/28/23 18:59 06:59 18:59 Intake Total 1170 Output Total 400 Balance 1170 -400 Weight 42.864 kg Intake: Intake, IV Titration 580 Amount Piperacillin-Tazobactam 3 100 .375 gm In Sodium Chloride 0.9% 100 ml @ 25 mls/hr IVPB Q8HR [facility] Rx# :[id number] Sodium Chloride 0.9% 1, 480 000 ml @ 40 mls/hr IV . Q24H [facility] Rx#:[id number] Oral 590 Output: Urine 400 Other: Voiding Method External Catheter External Catheter External Catheter # Voids 1 - Exam GENERAL EXAM: Alert, cachectic 58-year-old male patient, on room air, in no apparent distress. HEAD: Normocephalic. EYES: Normal reaction of pupils, equal size. NOSE: Clear with pink turbinates. THROAT: No erythema or exudates. NECK: No masses, no JVD. CHEST: No chest wall deformity. LUNGS: Equal air entry with bilateral scattered rhonchi, diminished. CVS: S1 and S2 normal with no audible murmur, regular rhythm. ABDOMEN: No hepatosplenomegaly, normal bowel sounds, no guarding or rigidity. SPINE: No scoliosis or deformity SKIN: No rashes CENTRAL NERVOUS SYSTEM: No focal deficits, tone is normal in all 4 extremities. EXTREMITIES: There is no peripheral edema. No clubbing, no cyanosis. Peripheral pulses are intact. - Labs CBC & Chem 7: 10/28/23 07:36 10/28/23 07:36 Labs: Abnormal Lab Results - Last 24 Hours (Table) 10/27/23 10/27/23 10/28/23 Range/Units 17:02 20:31 07:00 RBC (4.40-5.60) X 10*6/uL Hgb (13.0-17.0) g/dL Hct (39.6-50.0) % MCH (27.0-32.0) pg MCHC (32.0-37.0) g/dL RDW (11.5-14.5) % Plt Count (140-440) X 10*3/uL Lymphocytes # (0.90-5.00) X 10*3/uL Eosinophils # (0.04-0.35) X 10*3/uL Sodium (135-145) mmol/L BUN (9.0-27.0) mg/dL Creatinine (0.6-1.5) mg/dL Glucose (70-110) mg/dL POC Glucose (mg/dL) 130 H 146 H 131 H (70-110) mg/dL Calcium (8.7-10.3) mg/dL 10/28/23 10/28/23 10/28/23 Range/Units 07:36 07:36 11:47 RBC 2.95 L (4.40-5.60) X 10*6/uL Hgb 7.4 L (13.0-17.0) g/dL Hct 24.7 L (39.6-50.0) % MCH 25.1 L (27.0-32.0) pg MCHC 30.0 L (32.0-37.0) g/dL RDW 14.6 H (11.5-14.5) % Plt Count 516 H (140-440) X 10*3/uL Lymphocytes # 0.39 L (0.90-5.00) X 10*3/uL Eosinophils # 0 L (0.04-0.35) X 10*3/uL Sodium 131 L (135-145) mmol/L BUN 4.4 L (9.0-27.0) mg/dL Creatinine 0.3 L (0.6-1.5) mg/dL Glucose 112 H (70-110) mg/dL POC Glucose (mg/dL) 119 H (70-110) mg/dL Calcium 8.4 L (8.7-10.3) mg/dL Microbiology - Last 24 Hours (Table) 10/25/23 14:20 Gram Stain - Final Bronchoalviolar Lavage - Left Bronchial Washings Culture - Final 10/25/23 14:15 Gram Stain - Final Bronchoalviolar Lavage - Right Bronchial Washings Culture - Final Assessment and Plan Plan: Metastatic carcinoma likely of a lung primary. Apparently the patient was diagnosed having adenocarcinoma of the right lung around 3 years ago. He refused any treatment despite multiple attempts to reach out to this patient. Repeat bronchoscopy was done as the patient continued to have an extensive airspace opacity in the right lower lobe in addition to a irregular masslike lesion in the right upper lobe. Bronchoscopy was done. Biopsies are still pending for now. History of lung cancer, with metastasis, to the central nervous system. MRI of the brain does reveal multiple metastatic lesions. Initiated on Decadron. Bone scan revealed no osseous lesions the patient declined radiation therapy. History of tongue cancer, status post surgery History of esophageal cancer History of heavy tobacco use, suspect COPD History of chronic alcohol use/abuse Anemia Hyponatremia Noncompliance with medical care Plan: Overall condition is stable. The patient is somnolent. The patient remains on Decadron. No seizure activity. No focal neurological deficits. Generalized weakness Continue on Decadron Continue Zosyn Heparin for DVT prophylaxis Seen by radiation oncology but is declining treatment Based on the above-mentioned history, as very much like and the patient may need comfort care measures/hospice. Very poor performance of functional status.
[2023-10-28] MEDS: SODIUM CHLORIDE 0.9% 1,000 ML IV SCH (15:53)
--- NOTE | 2023-10-28 15:56 | PN ---
PROGRESS NOTE DATE OF SERVICE: 10/28/2023 SUBJECTIVE: This is a 58-year-old gentleman admitted with possible right upper lobe lung cancer, also had multiple brain metastases. The patient is being closely monitored at this time. The patient is on broad spectrum IV antibiotics also. Cultures are negative so far. PHYSICAL EXAMINATION: VITAL SIGNS: Pulse is 77, blood pressure 116/70, respirations 16. CHEST: Few scattered rhonchi and crackles. ABDOMEN: Soft. NERVOUS SYSTEM: Diffusely weak. LABORATORY DATA: Hemoglobin 7.4. Rest of the labs are noted. ASSESSMENT: 1. Right upper lobe lung cancer possibly with multiple brain metastases. 2. Significant emaciation, possibly severe malnutrition. 3. Right aspiration pneumonia versus postobstructive pneumonia, possibly gram- negative. 4. Diminished p.o. intake. 5. Oral and throat cancer history. 6. History of nicotine dependence. 7. History of EtOH. 8. History of THC. 9. Anemia, multifactorial. 10.Full code. RECOMMENDATIONS: Recommend to continue current medical management. Continue symptomatic treatment. Otherwise, continue with antibiotics. Await biopsy report. Closely follow with Oncology and Radiation-Oncology. Guarded prognosis. Further recommendations to follow. MMODL / IJN: [id number] /
[2023-10-28 17:04] LABS: Glucose,Whole Blood 186 mg/dL (70-110)
[2023-10-28] MEDS ORDERED: ACETAMINOPHEN TAB 500 MG TAB PO STA (18:22)
[2023-10-28 20:33] LABS: Glucose,Whole Blood 261 mg/dL (70-110)
[2023-10-28] MEDS: ALPRAZolam 0.25 MG TAB PO PRN (21:30)
[2023-10-29] MEDS: PIPERACILLIN-TAZOBACTAM 3.375 GM in SODIUM CHLORIDE 0.9% 100 ML IVPB SCH ×4 (00:49→23:38)
[2023-10-29] MEDS: DEXAMETHASONE SOD PHOSPHATE 4 MG/ML 1 ML VIAL IVP SCH ×3 (05:32→20:40)
[2023-10-29 07:01] LABS: Glucose,Whole Blood 108 mg/dL (70-110)
[2023-10-29] MEDS: INSULIN ASPART (NovoLOG) 100 UNIT/ML VIAL SQ SCH ×4 (07:33→20:40)
[2023-10-29] MEDS: HEPARIN SODIUM,PORCINE 5,000 UNIT/ML 1 ML VIAL SQ SCH ×2 (09:36→20:41)
[2023-10-29] MEDS: NICOTINE 21MG/24HR PATCH TRANSDERM SCH (09:36)
[2023-10-29 10:11] LABS: Nucleated Cells, Body Fluid 0 /UL
[2023-10-29 10:13] LABS: Nucleated Cells, Body Fluid 50 /UL
[2023-10-29 11:28] LABS: Glucose,Whole Blood 167 mg/dL (70-110)
[2023-10-29] MEDS: ACETAMINOPHEN TAB 325 MG TAB PO PRN ×2 (11:42→19:36)
--- NOTE | 2023-10-29 15:02 | PN ---
PROGRESS NOTE DATE OF SERVICE: 10/29/2023 SUBJECTIVE: This is a 58-year-old gentleman, who was admitted with right upper lobe lung cancer as well as brain metastases. He is being closely monitored. No chest pain. No palpitations. No fever. PHYSICAL EXAMINATION: VITAL SIGNS: Pulse 64, blood pressure 140/77, respirations 16. HEENT: Conjunctivae are normal. NECK: No jugular venous distention. CARDIOVASCULAR: S1 and S2 muffled. RESPIRATORY: Breath sounds diminished at the bases. ABDOMEN: Soft and nontender. NERVOUS SYSTEM: Nonfocal. LABORATORY DATA: Reviewed. The biopsy reports are still pending. ASSESSMENT: 1. Right upper lobe lung cancer with multiple brain metastases. 2. Significant emaciation and malnutrition, severe. 3. Right aspiration pneumonia versus postobstructive pneumonia, possibly gram- negative. 4. Diminished p.o. intake. 5. Oral and throat cancer history. 6. History of nicotine dependence. 7. History of EtOH. 8. History of THC. 9. Anemia, multifactorial. 10.Full code. RECOMMENDATIONS: Recommend to continue current medical management. Continue with antibiotics. Continue with conservative line of management. Await biopsy report. Any other further plans will depend on the biopsy report. We will closely follow with Oncology. Overall prognosis is extremely guarded because of above-mentioned multiple complex medical issues. Symptomatic treatment. Continue with steroids. MMODL / IJN: [id number] /
--- NOTE | 2023-10-29 15:44 | FL ---
Modified barium swallow. HISTORY: Dysphagia. Modified barium swallow was performed with the department of speech pathology. The patient was prese nted with various consistencies of barium. There is no evidence for aspiration or penetration. Full report is to follow from the department of speech pathology. Impression: Normal study.
--- NOTE | 2023-10-29 16:23 | P.PN ---
Subjective Progress Note Date: 10/28/23 Principal diagnosis: Reason for follow-up of his abnormal CT and question of pneumonia Patient is a 58-year-old male with a past medical history significant for mouth and throat cancer presented to the hospital for evaluation of significant weakness the patient did have a failure to thrive and significant weight loss , patient did have significant abnormality on the CT with large irregular mass within upper lobe suspicious for malignancy with extensive airspace opacity possible pneumonia, the patient is status post bronchoscopy biopsy and was completed on 10/25/2023 On today's evaluation that is 10/28/2023 the patient remains to be afebrile, the patient is breathing comfortably on room air and no need for supplemental oxygen, the patient denies having any chest pain denies any cough or sputum production, patient denies any abdominal pain no nausea vomiting or any diarrhea, patient did have a white count of 7.42, creatinine 0.3, CRP is 8.10, pro calcitonin 0.11 Objective - Vital Signs Vital signs: Vital Signs Temp 98.2 F 10/28/23 19:48 Pulse 101 H 10/28/23 19:48 Resp 14 10/28/23 19:48 BP 90/62 10/28/23 19:48 Pulse Ox 100 10/28/23 19:48 FiO2 21 10/25/23 07:49 Intake & Output 10/28/23 10/28/23 10/29/23 06:59 18:59 06:59 Intake Total 1170 Output Total 600 Balance 1170 -600 Weight 42.864 kg Intake: Intake, IV Titration 580 Amount Piperacillin-Tazobactam 3 100 .375 gm In Sodium Chloride 0.9% 100 ml @ 25 mls/hr IVPB Q8HR [facility] Rx# :[id number] Sodium Chloride 0.9% 1, 480 000 ml @ 40 mls/hr IV . Q24H [facility] Rx#:[id number] Oral 590 Output: Urine 600 Other: Voiding Method External Catheter External Catheter # Voids 1 - Exam GENERAL DESCRIPTION: Middle-aged male lying in bed in no distress RESPIRATORY SYSTEM: Unlabored breathing , decreased intensity of breath sounds HEART: S1 S2 regular rate and rhythm , ABDOMEN: Soft , no tenderness EXTREMITIES: No edema feet - Labs CBC & Chem 7: 10/28/23 07:36 10/28/23 07:36 Labs: Abnormal Lab Results - Last 24 Hours (Table) 10/28/23 10/28/23 10/28/23 Range/Units 07:00 07:36 07:36 RBC 2.95 L (4.40-5.60) X 10*6/uL Hgb 7.4 L (13.0-17.0) g/dL Hct 24.7 L (39.6-50.0) % MCH 25.1 L (27.0-32.0) pg MCHC 30.0 L (32.0-37.0) g/dL RDW 14.6 H (11.5-14.5) % Plt Count 516 H (140-440) X 10*3/uL Lymphocytes # 0.39 L (0.90-5.00) X 10*3/uL Eosinophils # 0 L (0.04-0.35) X 10*3/uL Sodium 131 L (135-145) mmol/L BUN 4.4 L (9.0-27.0) mg/dL Creatinine 0.3 L (0.6-1.5) mg/dL Glucose 112 H (70-110) mg/dL POC Glucose (mg/dL) 131 H (70-110) mg/dL Calcium 8.4 L (8.7-10.3) mg/dL 10/28/23 10/28/23 10/28/23 Range/Units 11:47 17:03 20:32 RBC (4.40-5.60) X 10*6/uL Hgb (13.0-17.0) g/dL Hct (39.6-50.0) % MCH (27.0-32.0) pg MCHC (32.0-37.0) g/dL RDW (11.5-14.5) % Plt Count (140-440) X 10*3/uL Lymphocytes # (0.90-5.00) X 10*3/uL Eosinophils # (0.04-0.35) X 10*3/uL Sodium (135-145) mmol/L BUN (9.0-27.0) mg/dL Creatinine (0.6-1.5) mg/dL Glucose (70-110) mg/dL POC Glucose (mg/dL) 119 H 186 H 261 H (70-110) mg/dL Calcium (8.7-10.3) mg/dL Microbiology - Last 24 Hours (Table) 10/23/23 12:04 Blood Culture - Final Blood 10/25/23 14:20 Gram Stain - Final Bronchoalviolar Lavage - Left Bronchial Washings Culture - Final 10/25/23 14:15 Gram Stain - Final Bronchoalviolar Lavage - Right Bronchial Washings Culture - Final Assessment and Plan (1) Lung mass Current Visit: Yes Status: Acute Priority: High Code(s): R91.8 - OTHER NONSPECIFIC ABNORMAL FINDING OF LUNG FIELD SNOMED Code(s): 951489295 (2) Pneumonia Current Visit: Yes Status: Acute Code(s): J18.9 - PNEUMONIA, UNSPECIFIED ORGANISM SNOMED Code(s): 478076898 Plan: 1patient is in the hospital with weakness history of malignancy and noticed to have a significant abnormality on the CT of the chest with a large irregular mass right upper lobe likely concerning for malignancy and concerning for possible component of postobstructive pneumonia 2-patient is status post bronchoscopy biopsy and lavage cultures are currently pending, patient did have an MRI suggestive of multiple brain lesion bone scan did not show any osteoblastic lesion 3-patient to continue with Zosyn 3.375 g every 8 hours to continue while waiting for cultures to finalize Dictation was produced using [employer] dictation software. please excuse any grammatical, word or spelling errors. Time with Patient: Less than 30
--- NOTE | 2023-10-29 16:23 | P.PN ---
Subjective Progress Note Date: 10/29/23 Principal diagnosis: Reason for follow-up of his abnormal CT and question of pneumonia Patient is a 58-year-old male with a past medical history significant for mouth and throat cancer presented to the hospital for evaluation of significant weakness the patient did have a failure to thrive and significant weight loss , patient did have significant abnormality on the CT with large irregular mass within upper lobe suspicious for malignancy with extensive airspace opacity possible pneumonia, the patient is status post bronchoscopy biopsy and was completed on 10/25/2023 On today's evaluation that is 10/29/2023, the patient continues to be afebrile and is breathing comfortably on room air, and patient denies any shortness of breath, chest pain, no cough or sputum production, patient denies nausea/vomiting /diarrhea and no abdominal pain. Complaining of some headache patient did have a white count of 7.42, creatinine 0.3 as of 10/28/2023, CRP is 8.10, pro calcitonin 0.11 Objective - Vital Signs Vital signs: Vital Signs Temp 97.3 F L 10/29/23 11:23 Pulse 87 10/29/23 11:23 Resp 16 10/29/23 11:23 BP 108/53 10/29/23 11:23 Pulse Ox 96 10/29/23 11:23 FiO2 21 10/25/23 07:49 Intake & Output 10/28/23 10/29/23 10/29/23 18:59 06:59 18:59 Output Total 600 300 Balance -600 -300 Weight 42.864 kg Output: Urine 600 300 Other: Voiding Method External Catheter External Catheter External Catheter # Voids 1 - Exam GENERAL DESCRIPTION: Middle-aged male lying in bed in no distress RESPIRATORY SYSTEM: Unlabored breathing , decreased intensity of breath sounds HEART: S1 S2 regular rate and rhythm , ABDOMEN: Soft , no tenderness EXTREMITIES: No edema feet - Labs CBC & Chem 7: 10/28/23 07:36 10/28/23 07:36 Labs: Abnormal Lab Results - Last 24 Hours (Table) 10/25/23 10/25/23 10/28/23 Range/Units 14:15 14:20 17:03 POC Glucose (mg/dL) 186 H (70-110) mg/dL Fluid RBC 24968 H 14700 H (0-2000) /uL 10/28/23 10/29/23 Range/Units 20:32 11:27 POC Glucose (mg/dL) 261 H 167 H (70-110) mg/dL Fluid RBC (0-2000) /uL Microbiology - Last 24 Hours (Table) 10/25/23 14:15 Acid Fast Bacilli Smear - Preliminary Bronchoalviolar Lavage - Right 10/25/23 14:15 Gram Stain - Final Bronchoalviolar Lavage - Right Bronchial Washings Culture - Final 10/23/23 12:04 Blood Culture - Final Blood Assessment and Plan (1) Lung mass Current Visit: Yes Status: Acute Priority: High Code(s): R91.8 - OTHER NONSPECIFIC ABNORMAL FINDING OF LUNG FIELD SNOMED Code(s): 906485656 (2) Pneumonia Current Visit: Yes Status: Acute Code(s): J18.9 - PNEUMONIA, UNSPECIFIED ORGANISM SNOMED Code(s): 980324927 Plan: 1patient is in the hospital with weakness history of malignancy and noticed to have a significant abnormality on the CT of the chest with a large irregular mass right upper lobe likely concerning for malignancy and concerning for possib le component of postobstructive pneumonia 2-patient is status post bronchoscopy biopsy and lavage cultures are currently pending, patient did have an MRI suggestive of multiple brain lesion bone scan did not show any osteoblastic lesion 3-patient currently covered with Zosyn 3.375 g every 8 hours concerning for possible postobstructive pneumonia, while waiting for cultures to finalize Dictation was produced using [employer] dictation software. please excuse any grammatical, word or spelling errors. Time with Patient: Less than 30
[2023-10-29 17:31] LABS: Glucose,Whole Blood 139 mg/dL (70-110)
[2023-10-29] MEDS: SODIUM CHLORIDE 0.9% 1,000 ML IV SCH (19:19)
[2023-10-29 20:38] LABS: Glucose,Whole Blood 158 mg/dL (70-110)
--- NOTE | 2023-10-29 21:17 | P.PN ---
Subjective Progress Note Date: 10/29/23 -Afebrile, no acute events overnight -Reports having intermittent headaches on today's visit. Interactive and participating in conversation Objective - Vital Signs Vital signs: Vital Signs Temp 97.3 F L 10/29/23 11:23 Pulse 87 10/29/23 11:23 Resp 16 10/29/23 11:23 BP 108/53 10/29/23 11:23 Pulse Ox 96 10/29/23 11:23 FiO2 21 10/25/23 07:49 Intake & Output 10/29/23 10/29/23 10/30/23 06:59 18:59 06:59 Intake Total 480 Output Total 300 450 Balance -300 30 Intake: Intake, IV Titration 480 Amount Sodium Chloride 0.9% 1, 480 000 ml @ 40 mls/hr IV . Q24H [facility] Rx#:[id number] Output: Urine 300 450 Other: Voiding Method External Catheter External Catheter - Constitutional Constitutional Comment(s): Cachectic and fatigued appearing General appearance: Present: no acute distress - EENT Eyes: Present: EOMI - Respiratory Details: Nonlabored breathing - Cardiovascular Details: Warm and well-perfused - Integumentary Integumentary: Absent: rash - Musculoskeletal Musculoskeletal: Present: generalized weakness - Labs CBC & Chem 7: 10/28/23 07:36 10/28/23 07:36 Labs: Abnormal Lab Results - Last 24 Hours (Table) 10/25/23 10/25/23 10/29/23 Range/Units 14:15 14:20 11:27 POC Glucose (mg/dL) 167 H (70-110) mg/dL Fluid RBC 49735 H 96216 H (0-2000) /uL 10/29/23 10/29/23 Range/Units 17:29 20:37 POC Glucose (mg/dL) 139 H 158 H (70-110) mg/dL Fluid RBC (0-2000) /uL Microbiology - Last 24 Hours (Table) 10/25/23 14:15 Acid Fast Bacilli Smear - Preliminary Bronchoalviolar Lavage - Right 10/25/23 14:15 Gram Stain - Final Bronchoalviolar Lavage - Right Bronchial Washings Culture - Final 10/23/23 12:04 Blood Culture - Final Blood Assessment and Plan (1) History of head and neck cancer Current Visit: Yes Status: Chronic Priority: High Code(s): Z85.89 - PERSONAL HISTORY OF MALIGNANT NEOPLASM OF ORGANS AND SYSTEMS SNOMED Code(s): 699023817 (2) Lung mass Current Visit: Yes Status: Acute Priority: High Code(s): R91.8 - OTHER NONSPECIFIC ABNORMAL FINDING OF LUNG FIELD SNOMED Code(s): 215116590 (3) Metastasis to brain Current Visit: Yes Status: Acute Priority: High Code(s): C79.31 - SECONDARY MALIGNANT NEOPLASM OF BRAIN SNOMED Code(s): 10742074 Plan: Tongue cancer: -History of tongue cancer. History is somewhat limited as patient is a poor historian. Underwent surgical resection with ENT, Dr. Tobias, but reports he did not receive systemic treatment or XRT. -Now reporting progressing weakness, weight loss, failure to thrive over the last 6 months Lung mass/brain mets: -CT chest abdomen pelvis revealed large irregular mass within the right upper lobe. Extensive airspace opacity also seen within the right lower lobe which has a masslike appearance. Scattered small pulmonary nodules seen within the left lung. Small right paratracheal lymph node. CT brain showed what appears to be some vasogenic edema within the right matter of the right cerebral hemisphere as well as the left frontal region which could represent potentially metastatic lesions however incompletely evaluated without contrast. Results and concerns of malignancy were discussed with patient -Pulmonology consulted for evaluation for lung biopsy, to r/o new primary vs recurrence of disease. S/p bronchoscopy, path pending -Brain MRI and bone scan obtained for further staging of disease. Brain MRI revealed multiple supra and infratentorial lesions with surrounding vasogenic edema. Bone scan negative for osteoblastic metastatic disease -Decadron 4mg TID started. -Rad/onc consulted. Case discussed with Dr. Grimm. He recommended whole brain radiation, however patient stated he did not think he wanted to undergo radiatio n. Dr. Grimm was able to review records from [facility] and states patient was diagnosed with lung adenocarcinoma approximately 3 years ago but never had any follow-up despite multiple attempts of reaching patient -Pathology still pending Goals of care: -On today's visit, his niece Viry was at bedside. She notes she is trying to gain guardianship over her uncle's care and is working in conjunction with Vik's son -We discussed current hospital course to date, including biopsy results that are still pending -We discussed the concern for stage IV lung cancer with brain metastases and recommendation for potential whole brain radiation therapy -She notes that Vik did not take care of himself prior to presentation -He agrees with that assessment, having not eating and drinking alcohol most of the day -Prior to admission, he was not ambulatory for the majority of the day and will be either sitting or lying in bed -Currently, he appears to have an ECOG performance status of 3 -We discussed typical treatment course, including radiation therapy in addition to NGS and PD-L1 testing from biopsy in addition to circulating tumor DNA -We did discuss my concern for his inability to tolerate systemic therapy and coming to and from appointments -Because of this, we also discussed hospice, which his niece stated she had prior experience with from another family member -She stated her interested in setting up a meeting where other family members could hear this information -We will plan on a goals of care meeting tomorrow morning around 9:30 Evangelina Vilchis MD Time with Patient: Greater than 30
[2023-10-30] MEDS: DEXAMETHASONE SOD PHOSPHATE 4 MG/ML 1 ML VIAL IVP SCH ×3 (03:41→21:16)
[2023-10-30 07:04] LABS: Glucose,Whole Blood 127 mg/dL (70-110)
[2023-10-30] MEDS: INSULIN ASPART (NovoLOG) 100 UNIT/ML VIAL SQ SCH ×4 (09:17→21:18)
[2023-10-30] MEDS: NICOTINE 21MG/24HR PATCH TRANSDERM SCH (09:22)
[2023-10-30] MEDS: HEPARIN SODIUM,PORCINE 5,000 UNIT/ML 1 ML VIAL SQ SCH ×2 (09:22→21:18)
[2023-10-30] MEDS: PIPERACILLIN-TAZOBACTAM 3.375 GM in SODIUM CHLORIDE 0.9% 100 ML IVPB SCH ×2 (09:22→16:29)
[2023-10-30 12:07] LABS: Glucose,Whole Blood 326 mg/dL (70-110)
--- NOTE | 2023-10-30 14:15 | P.PN ---
Subjective Progress Note Date: 10/30/23 At today's visit patient is more alert. No acute events. Family at bedside, pt eating breakfast and is participating in conversation Objective - Vital Signs Vital signs: Vital Signs Temp 97.8 F 10/30/23 13:58 Pulse 91 10/30/23 13:58 Resp 16 10/30/23 13:58 BP 110/63 10/30/23 13:58 Pulse Ox 99 10/30/23 13:58 FiO2 21 10/25/23 07:49 Intake & Output 10/29/23 10/30/23 10/30/23 18:59 06:59 18:59 Intake Total 480 240 Output Total 450 1100 750 Balance 30 -1100 -510 Intake: Intake, IV Titration 480 Amount Sodium Chloride 0.9% 1, 480 000 ml @ 40 mls/hr IV . Q24H [facility] Rx#:[id number] Oral 240 Output: Urine 450 1100 750 Other: Voiding Method External Catheter External Catheter External Catheter - Labs CBC & Chem 7: 10/28/23 07:36 10/28/23 07:36 Labs: Abnormal Lab Results - Last 24 Hours (Table) 10/29/23 10/29/23 10/30/23 Range/Units 17:29 20:37 06:53 POC Glucose (mg/dL) 139 H 158 H 127 H (70-110) mg/dL 10/30/23 Range/Units 12:01 POC Glucose (mg/dL) 326 H (70-110) mg/dL Microbiology - Last 24 Hours (Table) 10/25/23 14:15 Acid Fast Bacilli Smear - Preliminary Bronchoalviolar Lavage - Right 10/25/23 14:15 Gram Stain - Final Bronchoalviolar Lavage - Right Bronchial Washings Culture - Final Assessment and Plan (1) History of head and neck cancer Current Visit: Yes Status: Chronic Priority: High Code(s): Z85.89 - PERSONAL HISTORY OF MALIGNANT NEOPLASM OF ORGANS AND SYSTEMS SNOMED Code(s): 397710183 (2) Lung mass Current Visit: Yes Status: Acute Priority: High Code(s): R91.8 - OTHER NONSPECIFIC ABNORMAL FINDING OF LUNG FIELD SNOMED Code(s): 616333880 (3) Weakness Current Visit: Yes Status: Acute Priority: High Code(s): R53.1 - WEAKNESS SNOMED Code(s): 51995125 (4) Metastasis to brain Current Visit: Yes Status: Acute Priority: High Code(s): C79.31 - SECONDARY MALIGNANT NEOPLASM OF BRAIN SNOMED Code(s): 15822499 Plan: Tongue cancer: -History of tongue cancer. History is somewhat limited as patient is a poor historian. Underwent surgical resection with ENT, Dr. Tobias, but reports he did not receive systemic treatment or XRT. -Now reporting progressing weakness, weight loss, failure to thrive over the last 6 months Lung mass/brain mets: -CT chest abdomen pelvis revealed large irregular mass within the right upper lo be. Extensive airspace opacity also seen within the right lower lobe which has a masslike appearance. Scattered small pulmonary nodules seen within the left lung. Small right paratracheal lymph node. CT brain showed what appears to be some vasogenic edema within the right matter of the right cerebral hemisphere as well as the left frontal region which could represent potentially metastatic les ions however incompletely evaluated without contrast. Results and concerns of malignancy were discussed with patient -Pulmonology consulted for evaluation for lung biopsy, to r/o new primary vs recurrence of disease. S/p bronchoscopy, path pending -Brain MRI and bone scan obtained for further staging of disease. Brain MRI revealed multiple supra and infratentorial lesions with surrounding vasogenic edema. Bone scan negative for osteoblastic metastatic disease -Decadron 4mg TID started. -Rad/onc consulted. Case discussed with Dr. Grimm. He recommended whole brain radiation, however patient stated he did not think he wanted to undergo radiation. Dr. Grimm was able to review records from [facility] and states patient was diagnosed with lung adenocarcinoma approximately 3 years ago but never had any follow-up despite multiple attempts of reaching patient. Further discussed with Dr. Grimm about potentially offering palliative RT to some of the brain lesions vs whole brain, but states at this time he would not recommend that and will f/u with family to provide his recommendations -Pathology still pending Goals of care: -On today's visit, family meeting was held. -We discussed current hospital course to date, including biopsy results that are still pending -We discussed the concern for stage IV lung cancer with brain metastases and recommendation for potential whole brain radiation therapy -She notes that Vik did not take care of himself prior to presentation -He agrees with that assessment, having not eating and drinking alcohol most of the day -Prior to admission, he was not ambulatory for the majority of the day and will be either sitting or lying in bed -Currently, he appears to have an ECOG performance status of 3 -We discussed typical treatment course, including radiation therapy in addition to NGS and PD-L1 testing from biopsy in addition to circulating tumor DNA -We did discuss my concern for his inability to tolerate systemic therapy and coming to and from appointments -Because of this, we also discussed hospice/comfort care. After lengthy dis cussion, pt and family decided they would like to pursue hospice care. Consult was placed to [facility] at familys request, however, spoke with nursing who states he is out of network, so consult was placed to [facility] -We informed family/patient that we are happy to address any further questions or concerns and/or to further discuss treatment options if patients PS improves and changes his mind in regards to pursuing treatment. Patient and family verbalized understanding Dr. Hassanests: I have seen and examined pt, performed H&P, developed impression and plan of care. Discussed with dictator. Agree with documentation, dictated as a scribe.
[2023-10-30 17:16] LABS: Glucose,Whole Blood 153 mg/dL (70-110)
[2023-10-30] MEDS: SODIUM CHLORIDE 0.9% 1,000 ML IV SCH (17:51)
--- NOTE | 2023-10-30 18:13 | P.PN ---
Subjective Progress Note Date: 10/30/23 58-year-old male who apparently presented to the emergency department on October 22, complaining of weakness, and failure to thrive. The patient apparently has had significant weight loss, and has a history of tongue cancer, and esophageal cancer. In addition, the patient apparently has either a mass or infiltrate in his lungs, and, we were asked to see the patient for possible biopsy. On room air, his saturations are 92%. He's getting saline at 75 mL an hour. He apparently does not have a family doctor. He is a heavy smoker, uses marijuana, and, is a heavy drinker of alcohol. His niece was in the room, and gave us this history. He apparently takes no medications at home. Here in the hospital, he's on duo nebs, Xanax, subcutaneous heparin, Ativan, morphine, Narcan, nicotine patch, Zofran, and Zosyn. White count 6.55, hemoglobin 8, hematocrit 26.6, and platelet count 508,000. Sodium 131, potassium 3.6, chlorides 99, CO2 22, anion gap 10, BUN less than 3.5, and creatinine 0.3. Pro- calcitonin level is 0.11. Chest x-ray on the day of admission, shows a patchy infiltrate in the right lung. Computed tomography scan of the brain revealed some vasogenic edema within the white matter of the right cerebral hemisphere as well as in the left frontal region. Computed tomography scan of the chest reveals a large irregular mass within the right upper lobe, and extensive airspace opacity in the right lower lobe. There are scattered pulmonary nodules within the left lung, potentially consistent with metastatic disease. Brain MRI shows multiple supra and infratentorial lesions, suspicious for metastatic disease. The patient is seen today 10/25/2023 and follow-up on the regular medical floor. He is currently resting in bed. Awake and alert in no acute distress. He is maintaining O2 saturations in the 90s on room air. He's been afebrile. Hemodynamically stable. Culture revealing no growth. Pro-calcitonin 0.11. MRI of the brain revealed multiple supra and infra tentorial lesions suspicious for metastatic disease. Bone scan revealed no osteoblastic metastatic disease. He's been initiated on Decadron. Radiation oncology consulted. He is scheduled for bronchoscopy with biopsies today. The patient is seen today 10/26/2023 in follow-up on the regular medical floor. He is awake and alert in no acute distress. He remains quite weak and debilitated. He is continued on bronchodilators. NicoDerm patch in place. Continue on antibiotics in the form of Zosyn. Normal saline at 75 ML's per hour. He's been initiated on Decadron to the metastatic brain lesions. They did undergo bronchoscopy and biopsies yesterday. Pathology pending. He had been seen and evaluated by radiation oncology. The patient is declining any treatment at this time. He had poor follow-ups in the past. He had been initially diagnosed at [facility] in 2019 for adenocarcinoma. He is maintaining good O2 saturations in the 90s on room air. Blood glucose 130. The patient is seen today 10/27/2023 in follow-up on the regular medical floor. He is resting comfortably in bed. Awake and alert in no acute distress. He denies any worsening shortness of breath, cough or congestion. Denies any pain currently. He is maintaining O2 saturations in the 90s on room air. He is normal saline at 40 miles per hour. His pro calcitonin was 0.11. He is continued on Zosyn. Bronchial wash cultures are pending. Biopsy pathology pending. Though again later to find out he was positive for adenocarcinoma [facility] in 2019. Unclear if he did any treatment at all. White count 7.7. Hemoglobin 7.4. Platelets 510. Sodium 129. Potassium 4.0. Bicarb 24. BUN 5. Creatinine 0.23. Glucose 117. He remains on heparin for DVT prophylaxis. NicoDerm patch in place. 10/28/2023, the patient is being seen for a follow-up. Resting comfortably in bed and is currently on room air oxygen with a pulse ox of 100%. Afebrile. Hemodynamically stable. No shortness of breath. The white cell count is at 7.4, hemoglobin at 7.4, the sodium level is at 131, BUN is at 4 with a creatinine of 0.3. He is somnolent. He is fatigued. Oral intake is minimal at this point in time. Overall, very much debilitated. Note that a computed tomography scan of the chest abdomen and pelvis showed a large irregular mass in the right upper lobe. Extensive airspace disease involving the right lower lobe with a masslike appearance. Scattered bilateral pulmonary smaller nodules were seen on the left and smaller paratracheal lymph nodes were also seen. CAT scan of the brain also showed vasogenic edema within the right matter of the right cerebral hemisphere as well as the left frontal region compatible with metastatic disease. The patient underwent another bronchoscopy and biopsy and the pathology still pending for now. He remains on Decadron 4 mg 3 times a day. The patient was also seen by radiation oncology. The patient himself did not want to undergo radiation therapy. Apparently, the patient was diagnosed having adenocarcinoma of the lungs 3 years ago but he never wanted any treatment despite attempts of reaching out to this patient. He is being considered for hospice/comfort care measures. On 10/30/2023, the patient is essentially unchanged, resting comfortably in bed, room air oxygen. Lung biopsy is also still pending for now. The patient is alert and communicating. Very much debilitated. The patient is aware that he has stage IV metastatic cancer probably of a lung primary and the patient also has brain metastases and skeletal metastases. His baseline performance of functional status is poor. The patient may not be able to tolerate any systemic treatment for cancer at this point in time. Based on that, [facility] was consulted on this patient. Objective - Vital Signs Vital signs: Vital Signs Temp 97.8 F 10/30/23 13:58 Pulse 91 10/30/23 13:58 Resp 16 10/30/23 13:58 BP 110/63 10/30/23 13:58 Pulse Ox 99 10/30/23 13:58 FiO2 21 10/25/23 07:49 Intake & Output 10/29/23 10/30/23 10/30/23 18:59 06:59 18:59 Intake Total 480 240 Output Total 450 1100 750 Balance 30 -1100 -510 Intake: Intake, IV Titration 480 Amount Sodium Chloride 0.9% 1, 480 000 ml @ 40 mls/hr IV . Q24H [facility] Rx#:[id number] Oral 240 Output: Urine 450 1100 750 Other: Voiding Method External Catheter External Catheter External Catheter - Exam GENERAL EXAM: Alert, cachectic 58-year-old male patient, on room air, in no apparent distress. HEAD: Normocephalic. EYES: Normal reaction of pupils, equal size. NOSE: Clear with pink turbinates. THROAT: No erythema or exudates. NECK: No masses, no JVD. CHEST: No chest wall deformity. LUNGS: Equal air entry with bilateral scattered rhonchi, diminished. CVS: S1 and S2 normal with no audible murmur, regular rhythm. ABDOMEN: No hepatosplenomegaly, normal bowel sounds, no guarding or rigidity. SPINE: No scoliosis or deformity SKIN: No rashes CENTRAL NERVOUS SYSTEM: No focal deficits, tone is normal in all 4 extremities. EXTREMITIES: There is no peripheral edema. No clubbing, no cyanosis. Peripheral pulses are intact. - Labs CBC & Chem 7: 10/28/23 07:36 10/28/23 07:36 Labs: Abnormal Lab Results - Last 24 Hours (Table) 10/29/23 10/30/23 10/30/23 Range/Units 20:37 06:53 12:01 POC Glucose (mg/dL) 158 H 127 H 326 H (70-110) mg/dL 10/30/23 Range/Units 17:09 POC Glucose (mg/dL) 153 H (70-110) mg/dL Assessment and Plan Plan: Metastatic carcinoma likely of a lung primary. Apparently the patient was diagnosed having adenocarcinoma of the right lung around 3 years ago. He refused any treatment despite multiple attempts to reach out to this patient. Repeat bronchoscopy was done as the patient continued to have an extensive airspace opacity in the right lower lobe in addition to a irregular masslike lesion in the right upper lobe. Bronchoscopy was done. Biopsies are still pending for now. History of lung cancer, with metastasis, to the central nervous system. MRI of the brain does reveal multiple metastatic lesions. Initiated on Decadron. Bone scan revealed no osseous lesions the patient declined radiation therapy. History of tongue cancer, status post surgery History of esophageal cancer History of heavy tobacco use, suspect COPD History of chronic alcohol use/abuse Anemia Hyponatremia Noncompliance with medical care Plan: Very poor performance of functional status Awaiting the results of the lung biopsy Overall presentation is consistent with lung cancer with metastasis to the brain Not a good candidate for any treatment with very poor performance of functional status Overall condition is stable. The patient is somnolent. The patient remains on Decadron. No seizure activity. No focal neurological deficits. Generalized weakness Continue on Decadron Continue Zosyn Heparin for DVT prophylaxis Seen by radiation oncology but is declining treatment Based on the above-mentioned history, as very much like and the patient may need comfort care measures/hospice. Very poor performance of functional status. Hospice consultation has been initiated
[2023-10-30 20:51] LABS: Glucose,Whole Blood 149 mg/dL (70-110)
[2023-10-30] MEDS: ACETAMINOPHEN TAB 325 MG TAB PO PRN (21:13)
[2023-10-31] MEDS: PIPERACILLIN-TAZOBACTAM 3.375 GM in SODIUM CHLORIDE 0.9% 100 ML IVPB SCH ×4 (02:46→23:45)
[2023-10-31] MEDS: DEXAMETHASONE SOD PHOSPHATE 4 MG/ML 1 ML VIAL IVP SCH ×3 (05:19→20:02)
--- NOTE | 2023-10-31 07:01 | P.PN ---
Subjective Progress Note Date: 10/30/23 This is a 4-year-old male who was recently admitted with severe cachexia and medical debility with concerns of possible EtOH withdrawal being closely monitored. Multiple medical consultations following including oncology and pulmonary along with infectious disease and radiation oncology. Patient is [facility] post biopsy and awaiting official report. Patient with known history of lung cancer in another facility was diagnosed and failed to follow-up over 3 years ago. Patient is also found to have multiple metastatic lesions in the brain and is maintained on steroid treatment. Patient continues with pain and being evaluated for possible hospice. Family would like the [facility] hospice house although [id number] and cannot afford in [facility] hospice has been consulted and pending. Patient is currently afebrile with no reports of chest pain or shortness of breath. Patient continues report headache and generalized pain with weakness. Patient tolerating diet with no reported nausea or vomiting noted. Review of systems: Constitutional: No reports of fatigue, fever, or chills, reports continued headache Cardiovascular: No reports of chest pain or palpitations Respiratory: No reports of shortness of breath or cough GI: no reports of nausea, no reports of vomiting, no diarrhea : No reports of dysuria or retention Neurovascular: reports of generalized weakness All medications have been reviewed PHYSICAL EXAMINATION: GENERAL: The patient is alert and oriented x2-3, thin built, cachetic, severely emaciated and significant muscle wasting noted HEENT: Pupils are round and equally reacting to light. EOMI. no scleral icterus. No conjunctival pallor. Normocephalic, atraumatic. No pharyngeal erythema. No thyromegaly. CARDIOVASCULAR: S1 and S2 muffled PULMONARY: diminished breath sounds bilaterally with no wheezing or rhonchi noted. ABDOMEN: soft. Nontender on exam. obese. non-distended, normoactive bowel sounds. No palpable organomegaly. MUSCULOSKELETAL: No joint swelling or deformity. EXTREMITIES: No cyanosis, clubbing, or pedal edema. NEUROLOGICAL: Gross neurological examination did not reveal any focal deficits. Diffuse weakness SKIN: No rashes. 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 Significant MAC sedation and malnutrition, severe Right aspiration pneumonia versus postobstructive pneumonia, possibly gram- negative Diminished oral intake with significant weight loss Oral and throat cancer history History of continued ongoing nicotine dependence next line history of EtOH THC use Anemia, multifactorial GI prophylaxis DVT prophylaxis Full code Plan: Recommend to continue with current medications and management with multiple medical consultations following. Oncology along with radiation oncology and pulmonary following and family was to have discussion with oncology about overall prognosis which is extremely poor and recommended hospice. Patient's family was agreeable to hospice house although [id number] and is being referred to [facility] Radiation oncology recommending entire brain radiation for the multiple lesions noted in family and patient to discuss further if moving forward with Continue current regimen including pain management Continue CIWA protocol as patient is known alcohol use and family was concerned patient was withdrawing on admission she is a daily drinker Overall prognosis is poor and guarded and will discuss further with case management/social work on discharge planning The impression and plan of care has been dictated by Krissy Abad, nurse practitioner as directed. Dr. Lico MD I have performed a history and examination and MDM of this patient, discussed the same with the dictator, and agree with the dictator's assessment and plan as written ,documented as a scribe. Based on total visit time, I have performed more than 50% of the visit. Any additional findings or plans will be noted. Objective - Vital Signs Vital signs: Vital Signs Temp 98.6 F 10/31/23 02:00 Pulse 92 10/31/23 02:00 Resp 16 10/31/23 02:00 BP 123/86 10/31/23 02:00 Pulse Ox 99 10/31/23 02:00 FiO2 21 10/25/23 07:49 Intake & Output 10/30/23 10/30/23 10/31/23 06:59 18:59 06:59 Intake Total 720 Output Total 4158 127 5220 Balance -1100 -230 -1000 Intake: Oral 720 Output: Urine 7033 933 5642 Other: Voiding Method External Catheter External Catheter External Catheter - Labs CBC & Chem 7: 10/28/23 07:36 10/28/23 07:36 Labs: Abnormal Lab Results - Last 24 Hours (Table) 10/30/23 10/30/23 10/30/23 Range/Units 06:53 12:01 17:09 POC Glucose (mg/dL) 127 H 326 H 153 H (70-110) mg/dL 10/30/23 Range/Units 20:49 POC Glucose (mg/dL) 149 H (70-110) mg/dL
[2023-10-31 07:17] LABS: Glucose,Whole Blood 111 mg/dL (70-110)
[2023-10-31] MEDS: INSULIN ASPART (NovoLOG) 100 UNIT/ML VIAL SQ SCH ×4 (08:13→20:21)
[2023-10-31] MEDS: NICOTINE 21MG/24HR PATCH TRANSDERM SCH (08:41)
[2023-10-31] MEDS: HEPARIN SODIUM,PORCINE 5,000 UNIT/ML 1 ML VIAL SQ SCH ×2 (08:41→20:03)
[2023-10-31 11:48] LABS: Glucose,Whole Blood 159 mg/dL (70-110)
--- NOTE | 2023-10-31 14:29 | P.PN ---
Subjective Progress Note Date: 10/30/23 Principal diagnosis: Reason for follow-up of his abnormal CT and question of pneumonia Patient is a 58-year-old male with a past medical history significant for mouth and throat cancer presented to the hospital for evaluation of significant weakness the patient did have a failure to thrive and significant weight loss , patient did have significant abnormality on the CT with large irregular mass within upper lobe suspicious for malignancy with extensive airspace opacity possible pneumonia, the patient is status post bronchoscopy biopsy and was completed on 10/25/2023 On today's evaluation that is 10/30/2023 the patient remains to be afebrile, the patient is breathing comfortably on room air and no need for supplemental oxygen, the patient denies having any chest pain denies any worsening cough or sputum production, patient denies nausea vomiting or any diarrhea, and no abdominal pain patient did have a white count of 7.42, creatinine 0.3 as of 10/28/2023 no laboratory today, CRP is 8.10, pro calcitonin 0.11 Objective - Vital Signs Vital signs: Vital Signs Temp 97.4 F L 10/30/23 07:41 Pulse 73 10/30/23 07:41 Resp 15 10/30/23 07:41 BP 129/73 10/30/23 07:41 Pulse Ox 99 10/30/23 07:41 FiO2 21 10/25/23 07:49 Intake & Output 10/29/23 10/30/23 10/30/23 18:59 06:59 18:59 Intake Total 480 Output Total 450 1100 750 Balance 30 -1100 -750 Intake: Intake, IV Titration 480 Amount Sodium Chloride 0.9% 1, 480 000 ml @ 40 mls/hr IV . Q24H [facility] Rx#:[id number] Output: Urine 450 1100 750 Other: Voiding Method External Catheter External Catheter External Catheter - Exam GENERAL DESCRIPTION: Middle-aged male lying in bed in no distress RESPIRATORY SYSTEM: Unlabored breathing , decreased intensity of breath sounds HEART: S1 S2 regular rate and rhythm , ABDOMEN: Soft , no tenderness EXTREMITIES: No edema feet - Labs CBC & Chem 7: 10/28/23 07:36 10/28/23 07:36 Labs: Abnormal Lab Results - Last 24 Hours (Table) 10/29/23 10/29/23 10/30/23 Range/Units 17:29 20:37 06:53 POC Glucose (mg/dL) 139 H 158 H 127 H (70-110) mg/dL 10/30/23 Range/Units 12:01 POC Glucose (mg/dL) 326 H (70-110) mg/dL Microbiology - Last 24 Hours (Table) 10/25/23 14:15 Acid Fast Bacilli Smear - Preliminary Bronchoalviolar Lavage - Right 10/25/23 14:15 Gram Stain - Final Bronchoalviolar Lavage - Right Bronchial Washings Culture - Final Assessment and Plan (1) Lung mass Current Visit: Yes Status: Acute Priority: High Code(s): R91.8 - OTHER NONSPECIFIC ABNORMAL FINDING OF LUNG FIELD SNOMED Code(s): 310447350 (2) Pneumonia Current Visit: Yes Status: Acute Code(s): J18.9 - PNEUMONIA, UNSPECIFIED ORGANISM SNOMED Code(s): 565798114 Plan: 1patient is in the hospital with weakness history of malignancy and noticed to have a significant abnormality on the CT of the chest with a large irregular mass right upper lobe likely concerning for malignancy and concerning for possible component of postobstructive pneumonia 2-patient is status post bronchoscopy biopsy and lavage cultures are currently pending, patient did have an MRI suggestive of multiple brain lesion bone scan did not show any osteoblastic lesion 3-patient to continue with Zosyn 3.375 g every 8 hours concerning for possible postobstructive pneumonia, and monitor clinical course closely Dictation was produced using [employer] dictation software. please excuse any grammatical, word or spelling errors. Time with Patient: Less than 30
--- NOTE | 2023-10-31 14:30 | P.PN ---
Subjective Progress Note Date: 10/31/23 Principal diagnosis: Reason for follow-up of his abnormal CT and question of pneumonia Patient is a 58-year-old male with a past medical history significant for mouth and throat cancer presented to the hospital for evaluation of significant weakness the patient did have a failure to thrive and significant weight loss , patient did have significant abnormality on the CT with large irregular mass within upper lobe suspicious for malignancy with extensive airspace opacity possible pneumonia, the patient is status post bronchoscopy biopsy and was completed on 10/25/2023 On today's evaluation that is 10/31/2023, the patient continues to be afebrile and is breathing comfortably on room air, and patient denies any shortness of breath, chest pain and did have occasional cough but no sputum production, patient denies abdominal pain, no nausea/vomiting and no diarrhea has been reported patient did have a white count of 7.42, creatinine 0.3 as of 10/28/2023 no labs drawn today, CRP is 8.10, pro calcitonin 0.11, BAL culture so far negative Objective - Vital Signs Vital signs: Vital Signs Temp 97.7 F 10/31/23 07:13 Pulse 84 10/31/23 07:13 Resp 16 10/31/23 07:13 BP 115/71 10/31/23 07:13 Pulse Ox 100 10/31/23 07:13 FiO2 21 10/25/23 07:49 Intake & Output 10/30/23 10/31/23 10/31/23 18:59 06:59 18:59 Intake Total 720 Output Total 950 1000 500 Balance -230 -1000 -500 Intake: Oral 720 Output: Urine 950 1000 500 Other: Voiding Method External Catheter External Catheter External Catheter - Exam GENERAL DESCRIPTION: Middle-aged male lying in bed in no distress RESPIRATORY SYSTEM: Unlabored breathing , decreased intensity of breath sounds HEART: S1 S2 regular rate and rhythm , ABDOMEN: Soft , no tenderness EXTREMITIES: No edema feet - Labs CBC & Chem 7: 10/28/23 07:36 10/28/23 07:36 Labs: Abnormal Lab Results - Last 24 Hours (Table) 10/30/23 10/30/23 10/31/23 Range/Units 17:09 20:49 07:16 POC Glucose (mg/dL) 153 H 149 H 111 H (70-110) mg/dL 12/07/23 Range/Units 11:46 POC Glucose (mg/dL) 159 H (70-110) mg/dL Assessment and Plan (1) Lung mass Current Visit: Yes Status: Acute Priority: High Code(s): R91.8 - OTHER NONSPECIFIC ABNORMAL FINDING OF LUNG FIELD SNOMED Code(s): 914038853 (2) Pneumonia Current Visit: Yes Status: Acute Code(s): J18.9 - PNEUMONIA, UNSPECIFIED ORGANISM SNOMED Code(s): 044267770 Plan: 1patient is in the hospital with weakness history of malignancy and noticed to have a significant abnormality on the CT of the chest with a large irregular mass right upper lobe likely concerning for malignancy and concerning for possible component of postobstructive pneumonia 2-patient is status post bronchoscopy biopsy and lavage cultures are currently pending, patient did have an MRI suggestive of multiple brain lesion bone scan did not show any osteoblastic lesion 3-patient remains to be afebrile, BAL cultures so far negative patient to continue with Zosyn 3.375 g every 8 hours concerning for possible postobstructive pneumonia plan for short course of oral antibiotics on discharge Dictation was produced using [employer] dictation software. please excuse any grammatical, word or spelling errors. Time with Patient: Less than 30
--- NOTE | 2023-10-31 16:46 | P.PN ---
Subjective Progress Note Date: 10/31/23 58-year-old male who apparently presented to the emergency department on October 22, complaining of weakness, and failure to thrive. The patient apparently has had significant weight loss, and has a history of tongue cancer, and esophageal cancer. In addition, the patient apparently has either a mass or infiltrate in his lungs, and, we were asked to see the patient for possible biopsy. On room air, his saturations are 92%. He's getting saline at 75 mL an hour. He apparently does not have a family doctor. He is a heavy smoker, uses marijuana, and, is a heavy drinker of alcohol. His niece was in the room, and gave us this history. He apparently takes no medications at home. Here in the hospital, he's on duo nebs, Xanax, subcutaneous heparin, Ativan, morphine, Narcan, nicotine patch, Zofran, and Zosyn. White count 6.55, hemoglobin 8, hematocrit 26.6, and platelet count 508,000. Sodium 131, potassium 3.6, chlorides 99, CO2 22, anion gap 10, BUN less than 3.5, and creatinine 0.3. Pro- calcitonin level is 0.11. Chest x-ray on the day of admission, shows a patchy infiltrate in the right lung. Computed tomography scan of the brain revealed some vasogenic edema within the white matter of the right cerebral hemisphere as well as in the left frontal region. Computed tomography scan of the chest reveals a large irregular mass within the right upper lobe, and extensive airspace opacity in the right lower lobe. There are scattered pulmonary nodules within the left lung, potentially consistent with metastatic disease. Brain MRI shows multiple supra and infratentorial lesions, suspicious for metastatic disease. The patient is seen today 10/25/2023 and follow-up on the regular medical floor. He is currently resting in bed. Awake and alert in no acute distress. He is maintaining O2 saturations in the 90s on room air. He's been afebrile. Hemodynamically stable. Culture revealing no growth. Pro-calcitonin 0.11. MRI of the brain revealed multiple supra and infra tentorial lesions suspicious for metastatic disease. Bone scan revealed no osteoblastic metastatic disease. He's been initiated on Decadron. Radiation oncology consulted. He is scheduled for bronchoscopy with biopsies today. The patient is seen today 10/26/2023 in follow-up on the regular medical floor. He is awake and alert in no acute distress. He remains quite weak and debilitated. He is continued on bronchodilators. NicoDerm patch in place. Continue on antibiotics in the form of Zosyn. Normal saline at 75 ML's per hour. He's been initiated on Decadron to the metastatic brain lesions. They did undergo bronchoscopy and biopsies yesterday. Pathology pending. He had been seen and evaluated by radiation oncology. The patient is declining any treatment at this time. He had poor follow-ups in the past. He had been initially diagnosed at [facility] in 2019 for adenocarcinoma. He is maintaining good O2 saturations in the 90s on room air. Blood glucose 130. The patient is seen today 10/27/2023 in follow-up on the regular medical floor. He is resting comfortably in bed. Awake and alert in no acute distress. He denies any worsening shortness of breath, cough or congestion. Denies any pain currently. He is maintaining O2 saturations in the 90s on room air. He is normal saline at 40 miles per hour. His pro calcitonin was 0.11. He is continued on Zosyn. Bronchial wash cultures are pending. Biopsy pathology pending. Though again later to find out he was positive for adenocarcinoma [facility] in 2019. Unclear if he did any treatment at all. White count 7.7. Hemoglobin 7.4. Platelets 510. Sodium 129. Potassium 4.0. Bicarb 24. BUN 5. Creatinine 0.23. Glucose 117. He remains on heparin for DVT prophylaxis. NicoDerm patch in place. 10/28/2023, the patient is being seen for a follow-up. Resting comfortably in bed and is currently on room air oxygen with a pulse ox of 100%. Afebrile. Hemodynamically stable. No shortness of breath. The white cell count is at 7.4, hemoglobin at 7.4, the sodium level is at 131, BUN is at 4 with a creatinine of 0.3. He is somnolent. He is fatigued. Oral intake is minimal at this point in time. Overall, very much debilitated. Note that a computed tomography scan of the chest abdomen and pelvis showed a large irregular mass in the right upper lobe. Extensive airspace disease involving the right lower lobe with a masslike appearance. Scattered bilateral pulmonary smaller nodules were seen on the left and smaller paratracheal lymph nodes were also seen. CAT scan of the brain also showed vasogenic edema within the right matter of the right cerebral hemisphere as well as the left frontal region compatible with metastatic disease. The patient underwent another bronchoscopy and biopsy and the pathology still pending for now. He remains on Decadron 4 mg 3 times a day. The patient was also seen by radiation oncology. The patient himself did not want to undergo radiation therapy. Apparently, the patient was diagnosed having adenocarcinoma of the lungs 3 years ago but he never wanted any treatment despite attempts of reaching out to this patient. He is being considered for hospice/comfort care measures. On 10/30/2023, the patient is essentially unchanged, resting comfortably in bed, room air oxygen. Lung biopsy is also still pending for now. The patient is alert and communicating. Very much debilitated. The patient is aware that he has stage IV metastatic cancer probably of a lung primary and the patient also has brain metastases and skeletal metastases. His baseline performance of functional status is poor. The patient may not be able to tolerate any systemic treatment for cancer at this point in time. Based on that, [facility] was consulted on this patient. On today's evaluation of 10/31/2023, the patient's clinically unchanged. The patient is known to have metastatic adenocarcinoma of the lung. The patient underwent a bronchoscopy and transbronchial biopsies of the right upper lobe and the right lower lobe most showed poorly differentiated pulmonary adenocarcinoma. Patient remains on room air oxygen with a pulse ox of 98%. Overall condition remains unchanged. [facility] has been consulted. Objective - Vital Signs Vital signs: Vital Signs Temp 98.1 F 10/31/23 14:28 Pulse 96 10/31/23 14:28 Resp 16 10/31/23 14:28 BP 108/65 10/31/23 14:28 Pulse Ox 98 10/31/23 14:28 FiO2 21 10/25/23 07:49 Intake & Output 10/30/23 10/31/23 10/31/23 18:59 06:59 18:59 Intake Total 720 Output Total 950 1000 850 Balance -230 -1000 -850 Intake: Oral 720 Output: Urine 950 1000 850 Other: Voiding Method External Catheter External Catheter External Catheter - Exam GENERAL EXAM: Alert, cachectic 58-year-old male patient, on room air, in no apparent distress. HEAD: Normocephalic. EYES: Normal reaction of pupils, equal size. NOSE: Clear with pink turbinates. THROAT: No erythema or exudates. NECK: No masses, no JVD. CHEST: No chest wall deformity. LUNGS: Equal air entry with bilateral scattered rhonchi, diminished. CVS: S1 and S2 normal with no audible murmur, regular rhythm. ABDOMEN: No hepatosplenomegaly, normal bowel sounds, no guarding or rigidity. SPINE: No scoliosis or deformity SKIN: No rashes CENTRAL NERVOUS SYSTEM: No focal deficits, tone is normal in all 4 extremities. EXTREMITIES: There is no peripheral edema. No clubbing, no cyanosis. Peripheral pulses are intact. - Labs CBC & Chem 7: 10/28/23 07:36 10/28/23 07:36 Labs: Abnormal Lab Results - Last 24 Hours (Table) 10/30/23 10/30/23 10/31/23 Range/Units 17:09 20:49 07:16 POC Glucose (mg/dL) 153 H 149 H 111 H (70-110) mg/dL 10/31/23 Range/Units 11:46 POC Glucose (mg/dL) 159 H (70-110) mg/dL Assessment and Plan Plan: Metastatic carcinoma likely of a lung primary and the transbuccal biopsy of the right upper lobe and the right lower lobe was consistent with primary adenocarcinoma of the lung. Brain metastases probably related to lung primary. MRI of the brain does reveal multiple metastatic lesions. Initiated on Decadron. Bone scan revealed no osseous lesions the patient declined radiation therapy. History of tongue cancer, status post surgery History of esophageal cancer History of heavy tobacco use, suspect COPD History of chronic alcohol use/abuse Anemia Hyponatremia Noncompliance with medical care Plan: Very poor performance of functional status Lung biopsy is consistent with metastatic adenocarcinoma Overall presentation is consistent with lung cancer with metastasis to the brain Not a good candidate for any treatment with very poor performance of functional status Overall condition is stable. The patient is somnolent. The patient remains on Decadron. No seizure activity. No focal neurological deficits. Generalized weakness Continue on Decadron Heparin for DVT prophylaxis Seen by radiation oncology but is declining treatment Based on the above-mentioned history, as very much like and the patient may need comfort care measures/hospice. Very poor performance of functional status. Hospice consultation has been initiated
[2023-10-31] MEDS: SODIUM CHLORIDE 0.9% 1,000 ML IV SCH (17:13)
[2023-10-31 17:29] LABS: Glucose,Whole Blood 242 mg/dL (70-110)
[2023-10-31] MEDS: ACETAMINOPHEN TAB 325 MG TAB PO PRN (20:02)
[2023-10-31] MEDS: ALPRAZolam 0.25 MG TAB PO PRN (20:02)
[2023-10-31 20:16] LABS: Glucose,Whole Blood 222 mg/dL (70-110)
[2023-11-01] MEDS: DEXAMETHASONE SOD PHOSPHATE 4 MG/ML 1 ML VIAL IVP SCH ×3 (03:54→19:50)
--- NOTE | 2023-11-01 06:55 | P.PN ---
Subjective Progress Note Date: 10/31/23 This is a 4-year-old male who was recently admitted with severe cachexia and medical debility with concerns of possible EtOH withdrawal being closely monitored. Multiple medical consultations following including oncology and pulmonary along with infectious disease and radiation oncology. Patient is [facility] post biopsy and awaiting official report. Patient with known history of lung cancer in another facility was diagnosed and failed to follow-up over 3 years ago. Patient is also found to have multiple metastatic lesions in the brain and is maintained on steroid treatment. Patient continues with pain and being evaluated for possible hospice. Family would like the [facility] house although [id number] and cannot afford in [facility] hospice has been consulted and pending. Patient is currently afebrile with no reports of chest pain or shortness of breath. Patient continues report headache and generalized pain with weakness. Patient tolerating diet with no reported nausea or vomiting noted. 10/31/2023 Patient is seen in follow-up today multiple medical consultations following with social work following as well working on discharge planning and family has agreed to [facility] as [facility] [id number] and currently awaiting authorization from insurance. Family is also looking into possible SNF with hospice that would be somewhere closer to family. Patient is afebrile continued on antibiotics and pain management. No acute overnight events noted. Radiation oncology has evaluated and recommending possible radiation although patient is refusing. Patient awaiting discharge planning. Review of systems: Constitutional: No reports of fatigue, fever, or chills, reports continued headache Cardiovascular: No reports of chest pain or palpitations Respiratory: No reports of shortness of breath or cough GI: no reports of nausea, no reports of vomiting, no diarrhea : No reports of dysuria or retention Neurovascular: reports of generalized weakness All medications have been reviewed PHYSICAL EXAMINATION: GENERAL: The patient is alert and oriented x2-3, thin built, cachetic, severely emaciated and significant muscle wasting noted HEENT: Pupils are round and equally reacting to light. EOMI. no scleral icterus. No conjunctival pallor. Normocephalic, atraumatic. No pharyngeal erythema. No thyromegaly. CARDIOVASCULAR: S1 and S2 muffled PULMONARY: diminished breath sounds bilaterally with no wheezing or rhonchi noted. ABDOMEN: soft. Nontender on exam. obese. non-distended, normoactive bowel sounds. No palpable organomegaly. MUSCULOSKELETAL: No joint swelling or deformity. EXTREMITIES: No cyanosis, clubbing, or pedal edema. NEUROLOGICAL: Gross neurological examination did not reveal any focal deficits. Diffuse weakness SKIN: No rashes. 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 Significant MAC sedation and malnutrition, severe Right aspiration pneumonia versus postobstructive pneumonia, possibly gram- negative Diminished oral intake with significant weight loss Oral and throat cancer history History of continued ongoing nicotine dependence next line history of EtOH THC use Anemia, multifactorial GI prophylaxis DVT prophylaxis Full code Plan: Recommend to continue with current medications and management with multiple medical consultations following. Oncology along with radiation oncology and pulmonary following and family was to have discussion with oncology about overall prognosis which is extremely poor and recommended hospice. Patient's family was agreeable to hospice house although [id number] and looking into [facility] and possible ECF to accommodate hospice near family and currently awaiting insurance authorization. Social work is following Radiation oncology recommending no further interventions and patient and family had refused radiation Continue current regimen including pain management Overall prognosis is extremely poor and guarded and will discuss further with case management/social work on discharge planning The impression and plan of care has been dictated by Krissy Abad, nurse practitioner as directed. Dr. Cecily MD I have performed a history and examination and MDM of this patient, discussed the same with the dictator, and agree with the dictator's assessment and plan as written ,documented as a scribe. Based on total visit time, I have performed more than 50% of the visit. Any additional findings or plans will be noted. Objective - Vital Signs Vital signs: Vital Signs Temp 98.2 F 11/01/23 01:45 Pulse 66 11/01/23 01:45 Resp 16 11/01/23 01:45 BP 111/51 11/01/23 01:45 Pulse Ox 100 11/01/23 01:45 FiO2 21 10/25/23 07:49 Intake & Output 10/31/23 10/31/23 11/01/23 06:59 18:59 06:59 Output Total 1000 1250 900 Balance -1000 -1250 -900 Output: Urine 1000 1250 900 Other: Voiding Method External Catheter External Catheter External Catheter # Bowel Movements 1 - Labs CBC & Chem 7: 10/28/23 07:36 10/28/23 07:36 Labs: Abnormal Lab Results - Last 24 Hours (Table) 10/31/23 10/31/23 10/31/23 Range/Units 07:16 11:46 17:18 POC Glucose (mg/dL) 111 H 159 H 242 H (70-110) mg/dL 10/31/23 Range/Units 20:14 POC Glucose (mg/dL) 222 H (70-110) mg/dL
[2023-11-01 07:42] LABS: Glucose,Whole Blood 101 mg/dL (70-110)
[2023-11-01] MEDS: SODIUM CHLORIDE 0.9% 1,000 ML IV SCH (08:27)
[2023-11-01] MEDS: NICOTINE 21MG/24HR PATCH TRANSDERM SCH (08:27)
[2023-11-01] MEDS: HEPARIN SODIUM,PORCINE 5,000 UNIT/ML 1 ML VIAL SQ SCH ×2 (08:27→19:49)
[2023-11-01] MEDS: PIPERACILLIN-TAZOBACTAM 3.375 GM in SODIUM CHLORIDE 0.9% 100 ML IVPB SCH ×3 (08:27→23:41)
[2023-11-01] MEDS: INSULIN ASPART (NovoLOG) 100 UNIT/ML VIAL SQ SCH ×4 (11:21→21:01)
[2023-11-01 12:55] LABS: Glucose,Whole Blood 102 mg/dL (70-110)
[2023-11-01 17:20] LABS: Glucose,Whole Blood 152 mg/dL (70-110)
[2023-11-01 20:40] LABS: Glucose,Whole Blood 210 mg/dL (70-110)
[2023-11-01] MEDS: ACETAMINOPHEN TAB 325 MG TAB PO PRN (22:33)
[2023-11-02] MEDS: DEXAMETHASONE SOD PHOSPHATE 4 MG/ML 1 ML VIAL IVP SCH ×3 (04:19→20:07)
--- NOTE | 2023-11-02 04:33 | P.PN ---
Subjective Progress Note Date: 11/01/23 This is a 4-year-old male who was recently admitted with severe cachexia and medical debility with concerns of possible EtOH withdrawal being closely monitored. Multiple medical consultations following including oncology and pulmonary along with infectious disease and radiation oncology. Patient is st [facility] post biopsy and awaiting official report. Patient with known history of lung cancer in another facility was diagnosed and failed to follow-up over 3 years ago. Patient is also found to have multiple metastatic lesions in the brain and is maintained on steroid treatment. Patient continues with pain and being evaluated for possible hospice. Family would like the [facility] house although [id number] and cannot afford in [facility] hospice has been consulted and pending. Patient is currently afebrile with no reports of chest pain or shortness of breath. Patient continues report headache and generalized pain with weakness. Patient tolerating diet with no reported nausea or vomiting noted. 10/31/2023 Patient is seen in follow-up today multiple medical consultations following with social work following as well working on discharge planning and family has agreed to [facility] as [facility] was [id number] and currently awaiting authorization from insurance. Family is also looking into possible SNF with hospice that would be somewhere closer to family. Patient is afebrile continued on antibiotics and pain management. No acute overnight events noted. Radiation oncology has evaluated and recommending possible radiation although patient is refusing. Patient awaiting discharge planning. 11/01/2023 Patient is seen in follow-up today with no acute issues noted overnight. Patient with multiple medical consultations following with no plans on any further interventions including radiation therapy. Patient is continued on pain management as well as antibiotics with infectious disease following. Awaiting sputum culture results. Patient is resting comfortably on room air and easily arousable. Patient not endorsing much pain and has not been using IV pain medications. As needed Tylenol per nursing staff. Patient is eating and tolerating oral intake with no reported nausea or vomiting. Social work following working on discharge planning and awaiting todd Wiley discharge determination. Review of systems: Constitutional: No reports of fatigue, fever, or chills, reports occasional headache Cardiovascular: No reports of chest pain or palpitations Respiratory: No reports of shortness of breath or cough GI: no reports of nausea, no reports of vomiting, no diarrhea : No reports of dysuria or retention Neurovascular: reports of generalized weakness All medications have been reviewed PHYSICAL EXAMINATION: GENERAL: The patient is alert and oriented x2-3, thin built, cachetic, severely emaciated and significant muscle wasting noted HEENT: Pupils are round and equally reacting to light. EOMI. no scleral icterus. No conjunctival pallor. Normocephalic, atraumatic. No pharyngeal erythema. No thyromegaly. CARDIOVASCULAR: S1 and S2 muffled PULMONARY: diminished breath sounds bilaterally with no wheezing or rhonchi noted. ABDOMEN: soft. Nontender on exam. Thin, scaphoid non-distended, normoactive bowel sounds. No palpable organomegaly. MUSCULOSKELETAL: No joint swelling or deformity. EXTREMITIES: No cyanosis, clubbing, or pedal edema. Significant muscle wasted noted of all extremities NEUROLOGICAL: Gross neurological examination did not reveal any focal deficits. Diffuse weakness SKIN: No rashes. 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 Significant protein calorie malnutrition, severe Right aspiration pneumonia versus postobstructive pneumonia, possibly gram- negative Diminished oral intake with significant weight loss and muscle wasting of bilateral upper and lower extremities as well as chest wall Oral and throat cancer history History of continued ongoing nicotine dependence history of EtOH, no active withdrawal and was continued on CIWA protocol THC use Anemia, multifactorial GI prophylaxis DVT prophylaxis no code Plan: Recommend to continue with current medications and management with multiple medical consultations following. Oncology along with radiation oncology and pulmonary following and family and discussion of overall poor prognosis and patient refusing any further treatment Continue current regimen including pain management Social work following awaiting son to make a decision his family would like some more [employer] discharge. Son Saurabh was informed of leaking a decision of possible ECF that could accommodate hospice in the area versus [facility] who has accepted the patient and authorization was obtained. Per son, he was not aware patient was ready for discharge. Will await final decision and continue discharge planning Overall prognosis is extremely poor and guarded and will discuss further with case management/social work on discharge planning The impression and plan of care has been dictated by Krissy Abad, nurse practitioner as directed. Dr. Cecily MD I have performed a history and examination and MDM of this patient, discussed the same with the dictator, and agree with the dictator's assessment and plan as written ,documented as a scribe. Based on total visit time, I have performed more than 50% of the visit. Any additional findings or plans will be noted. Objective - Vital Signs Vital signs: Vital Signs Temp 98.8 F 11/01/23 07:42 Pulse 57 L 11/01/23 07:42 Resp 16 11/01/23 07:42 BP 112/56 11/01/23 07:42 Pulse Ox 99 11/01/23 07:42 FiO2 21 10/25/23 07:49 Intake & Output 10/31/23 11/01/23 11/01/23 18:59 06:59 18:59 Intake Total 240 Output Total 1250 900 Balance -1250 -900 240 Intake: Oral 240 Output: Urine 1250 900 Other: Voiding Method External Catheter External Catheter # Bowel Movements 1 - Labs CBC & Chem 7: 10/28/23 07:36 10/28/23 07:36 Labs: Abnormal Lab Results - Last 24 Hours (Table) 10/31/23 10/31/23 10/31/23 Range/Units 11:46 17:18 20:14 POC Glucose (mg/dL) 159 H 242 H 222 H (70-110) mg/dL
[2023-11-02 07:14] LABS: Glucose,Whole Blood 201 mg/dL (70-110)
[2023-11-02] MEDS: PIPERACILLIN-TAZOBACTAM 3.375 GM in SODIUM CHLORIDE 0.9% 100 ML IVPB SCH ×3 (09:14→23:37)
[2023-11-02] MEDS: INSULIN ASPART (NovoLOG) 100 UNIT/ML VIAL SQ SCH ×4 (09:14→21:18)
[2023-11-02] MEDS: HEPARIN SODIUM,PORCINE 5,000 UNIT/ML 1 ML VIAL SQ SCH ×2 (09:14→20:06)
[2023-11-02] MEDS: NICOTINE 21MG/24HR PATCH TRANSDERM SCH (09:15)
[2023-11-02] MEDS: ACETAMINOPHEN TAB 325 MG TAB PO PRN (09:15)
[2023-11-02 09:31] LABS: BUN/Creat Ratio 34.33 Ratio (12.00-20.00); Blood Urea Nitrogen 10.3 mg/dL (9.0-27.0); Calcium 8.7 mg/dL (8.7-10.3); Carbon Dioxide 25.9 mmol/L (21.6-31.8); Chloride 95 mmol/L (96-109); Glucose 98 mg/dL (70-110); Potassium 4.5 mmol/L (3.5-5.5); Sodium 128 mmol/L (135-145)
[2023-11-02 11:03] LABS: Basophils # (A) 0.01 X 10*3/uL (0.00-0.10); Basophils % (A) 0.1 %; Eosinophils # (A) 0 X 10*3/uL (0.04-0.35); Eosinophils % (A) 0 %; HCT 22.1 % (39.6-50.0); HGB 6.8 g/dL (13.0-17.0); Lymphocytes % (A) 8.5 %; MCH 25.9 pg (27.0-32.0); MCHC 30.8 g/dL (32.0-37.0); Mean Platelet Volume 9.4 FL (9.5-12.2); Monocytes # (A) 1.11 X 10*3/uL (0.20-1.00); Monocytes % (A) 9.4 %; NRBC Per 100 WBC 0 X 10*3/uL (0.00-0.01); Neutrophils # (A) 9.62 X 10*3/uL (1.80-7.70); Neutrophils % (A) 81.5 %; Platelet Count 728 X 10*3/uL (140-440); RBC 2.63 X 10*6/uL (4.40-5.60)
[2023-11-02 12:06] LABS: Glucose,Whole Blood 159 mg/dL (70-110)
[2023-11-02 17:30] LABS: Glucose,Whole Blood 157 mg/dL (70-110)
[2023-11-02] MEDS: SODIUM CHLORIDE 0.9% 1,000 ML IV SCH (19:32)
[2023-11-02 20:43] LABS: Glucose,Whole Blood 156 mg/dL (70-110)
[2023-11-03] MEDS: ACETAMINOPHEN TAB 325 MG TAB PO PRN ×2 (02:13→19:45)
[2023-11-03] MEDS: DEXAMETHASONE SOD PHOSPHATE 4 MG/ML 1 ML VIAL IVP SCH ×3 (04:06→19:45)
[2023-11-03] MEDS: SODIUM CHLORIDE 0.9% 1,000 ML IV SCH ×2 (04:07→15:10)
[2023-11-03 07:07] LABS: Glucose,Whole Blood 82 mg/dL (70-110)
[2023-11-03] MEDS: INSULIN ASPART (NovoLOG) 100 UNIT/ML VIAL SQ SCH ×4 (07:30→20:39)
[2023-11-03] MEDS: NICOTINE 21MG/24HR PATCH TRANSDERM SCH (08:22)
[2023-11-03] MEDS: PIPERACILLIN-TAZOBACTAM 3.375 GM in SODIUM CHLORIDE 0.9% 100 ML IVPB SCH ×3 (08:22→23:51)
[2023-11-03] MEDS: HEPARIN SODIUM,PORCINE 5,000 UNIT/ML 1 ML VIAL SQ SCH ×2 (08:22→19:45)
[2023-11-03 09:31] LABS: BUN/Creat Ratio 41.67 Ratio (12.00-20.00); Blood Urea Nitrogen 12.5 mg/dL (9.0-27.0); Calcium 8.8 mg/dL (8.7-10.3); Carbon Dioxide 25.3 mmol/L (21.6-31.8); Chloride 97 mmol/L (96-109); Glucose 78 mg/dL (70-110); Potassium 4.5 mmol/L (3.5-5.5); Sodium 132 mmol/L (135-145)
[2023-11-03 09:40] LABS: HCT 25.8 % (39.6-50.0); HGB 8.1 g/dL (13.0-17.0); MCH 25.8 pg (27.0-32.0); MCHC 31.4 g/dL (32.0-37.0); MCV 82.2 FL (80.0-97.0); Mean Platelet Volume 8.8 FL (9.5-12.2); NRBC Per 100 WBC 0 X 10*3/uL (0.00-0.01); Platelet Count 732 X 10*3/uL (140-440); RBC 3.14 X 10*6/uL (4.40-5.60); RDW 14.7 % (11.5-14.5); WBC 14.59 X 10*3/uL (4.50-10.00)
[2023-11-03 10:18] LABS: Basophils # (A) 0.02 X 10*3/uL (0.00-0.10); Basophils % (A) 0.1 %; Eosinophils # (A) 0.02 X 10*3/uL (0.04-0.35); Eosinophils % (A) 0.1 %; Hypochromasia (M) 2+; Lymphocytes # (A) 1.25 X 10*3/uL (0.90-5.00); Lymphocytes % (A) 8.6 %; Microcytosis (M) 2+; Monocytes # (A) 1.61 X 10*3/uL (0.20-1.00); Neutrophils # (A) 11.61 X 10*3/uL (1.80-7.70); Neutrophils % (A) 79.7 %
[2023-11-03 11:50] LABS: Glucose,Whole Blood 158 mg/dL (70-110)
[2023-11-03 17:03] LABS: Glucose,Whole Blood 150 mg/dL (70-110)
[2023-11-03 20:33] LABS: Glucose,Whole Blood 177 mg/dL (70-110)
--- NOTE | 2023-11-03 23:10 | P.PN ---
Subjective Progress Note Date: 11/02/23 This is a 4-year-old male who was recently admitted with severe cachexia and medical debility with concerns of possible EtOH withdrawal being closely monitored. Multiple medical consultations following including oncology and pulmonary along with infectious disease and radiation oncology. Patient is stat post biopsy and awaiting official report. Patient with known history of lung cancer in another facility was diagnosed and failed to follow-up over 3 years ago. Patient is also found to have multiple metastatic lesions in the brain and is maintained on steroid treatment. Patient continues with pain and being evaluated for possible hospice. Family would like the [facility] house although [id number] and cannot afford in [facility] hospice has been consulted and pending. Patient is currently afebrile with no reports of chest pain or shortness of breath. Patient continues report headache and generalized pain with weakness. Patient tolerating diet with no reported nausea or vomiting noted. 10/31/2023 Patient is seen in follow-up today multiple medical consultations following with social work following as well working on discharge planning and family has agreed to [facility] as [facility] was [id number] and currently awaiting authorization from insurance. Family is also looking into possible SNF with hospice that would be somewhere closer to family. Patient is afebrile continued on antibiotics and pain management. No acute overnight events noted. Radiation oncology has evaluated and recommending possible radiation although patient is refusing. Patient awaiting discharge planning. 11/01/2023 Patient is seen in follow-up today with no acute issues noted overnight. Patient with multiple medical consultations following with no plans on any further interventions including radiation therapy. Patient is continued on pain management as well as antibiotics with infectious disease following. Awaiting sputum culture results. Patient is resting comfortably on room air and easily arousable. Patient not endorsing much pain and has not been using IV pain medications. As needed Tylenol per nursing staff. Patient is eating and tolerating oral intake with no reported nausea or vomiting. Social work following working on discharge planning and awaiting todd Wiley discharge determination. 11/02/2023 Patient is lying in bed. Awake alert but lethargic and weak. Current pain management. Patient has been afebrile. No nausea or vomiting. Tolerating oral diet slowly. Otherwise BAL fluid culture showed yeast species. Laboratory showed WBC 11.8 and hemoglobin 6.8 and platelets 728. Sodium 128 potassium 4.5 chloride 95 bicarb is 25.9 BUN 10.3 and creatinine 0.3 blood sugar 98. Patient is being current on IV hydration with normal saline 75 cc/h. On antibiotics in the form of Zosyn. Patient is also on dexamethasone 4 mg IV every 8 hourly. Patient is being transfused with 1 unit of PRBC. Review of systems: Constitutional: No reports of fatigue, fever, or chills, reports occasional headache Cardiovascular: No reports of chest pain or palpitations Respiratory: No reports of shortness of breath or cough GI: no reports of nausea, no reports of vomiting, no diarrhea : No reports of dysuria or retention Neurovascular: reports of generalized weakness All medications have been reviewed PHYSICAL EXAMINATION: GENERAL: The patient is alert and oriented x2-3, thin built, cachetic, severely emaciated and significant muscle wasting noted HEENT: Pupils are round and equally reacting to light. EOMI. no scleral icterus. No conjunctival pallor. Normocephalic, atraumatic. No pharyngeal erythema. No thyromegaly. CARDIOVASCULAR: S1 and S2 muffled PULMONARY: diminished breath sounds bilaterally with no wheezing or rhonchi noted. ABDOMEN: soft. Nontender on exam. Thin, scaphoid non-distended, normoactive bowel sounds. No palpable organomegaly. MUSCULOSKELETAL: No joint swelling or deformity. EXTREMITIES: No cyanosis, clubbing, or pedal edema. Significant muscle wasted noted of all extremities NEUROLOGICAL: Gross neurological examination did not reveal any focal deficits. Diffuse weakness SKIN: No rashes. 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 Significant protein calorie malnutrition, severe Right aspiration pneumonia versus postobstructive pneumonia, possibly gram- negative Diminished oral intake with significant weight loss and muscle wasting of bila teral upper and lower extremities as well as chest wall Oral and throat cancer history History of continued ongoing nicotine dependence history of EtOH, no active withdrawal and was continued on CIWA protocol THC use Anemia, multifactorial GI prophylaxis DVT prophylaxis no code Plan: Recommend to continue with current medications and management with multiple medical consultations following. 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 Son Saurabh was informed of leaking a decision of possible ECF that could accommodate hospice in the area versus [facility] who has accepted the patient and authorization was obtained. Per son, he was not aware patient was ready for discharge. Will await final decision and continue discharge planning Overall prognosis is extremely poor and guarded and will discuss further with case management/social work on discharge planning Objective - Vital Signs Vital signs: Vital Signs Temp 98.2 F 11/02/23 19:45 Pulse 82 11/02/23 19:45 Resp 16 11/02/23 19:45 BP 100/60 11/02/23 19:45 Pulse Ox 99 11/02/23 17:08 FiO2 21 10/25/23 07:49 Intake & Output 11/02/23 11/02/23 11/03/23 06:59 18:59 06:59 Intake Total 480 310 Output Total 1700 1300 Balance -1700 -820 310 Intake: Intake, IV Titration 480 Amount Sodium Chloride 0.9% 1, 480 000 ml @ 40 mls/hr IV . Q24H [facility] Rx#:[id number] Blood Product 0 310 Rc As-1 Unit 0 310 [id number] Output: Urine 1700 1300 Other: Voiding Method External Catheter External Catheter - Labs CBC & Chem 7: 11/03/23 06:15 11/03/23 06:15 Labs: Abnormal Lab Results - Last 24 Hours (Table) 11/02/23 11/02/23 11/02/23 Range/Units 04:51 04:51 07:12 WBC 11.80 H (4.50-10.00) X 10*3/uL RBC 2.63 L (4.40-5.60) X 10*6/uL Hgb 6.8 A* (13.0-17.0) g/dL Hct 22.1 L (39.6-50.0) % MCH 25.9 L (27.0-32.0) pg MCHC 30.8 L (32.0-37.0) g/dL RDW 15.0 H (11.5-14.5) % Plt Count 728 H (140-440) X 10*3/uL MPV 9.4 L (9.5-12.2) FL Immature Gran # 0.06 H (0.00-0.04) X 10*3/uL Neutrophils # 9.62 H (1.80-7.70) X 10*3/uL Monocytes # 1.11 H (0.20-1.00) X 10*3/uL Eosinophils # 0 L (0.04-0.35) X 10*3/uL Sodium 128 L (135-145) mmol/L Chloride 95 L (96-109) mmol/L Creatinine 0.3 L (0.6-1.5) mg/dL BUN/Creatinine Ratio 34.33 H (12.00-20.00) Ratio POC Glucose (mg/dL) 201 H (70-110) mg/dL Crossmatch 11/02/23 11/02/23 11/02/23 Range/Units 11:37 12:05 17:29 WBC (4.50-10.00) X 10*3/uL RBC (4.40-5.60) X 10*6/uL Hgb (13.0-17.0) g/dL Hct (39.6-50.0) % MCH (27.0-32.0) pg MCHC (32.0-37.0) g/dL RDW (11.5-14.5) % Plt Count (140-440) X 10*3/uL MPV (9.5-12.2) FL Immature Gran # (0.00-0.04) X 10*3/uL Neutrophils # (1.80-7.70) X 10*3/uL Monocytes # (0.20-1.00) X 10*3/uL Eosinophils # (0.04-0.35) X 10*3/uL Sodium (135-145) mmol/L Chloride (96-109) mmol/L Creatinine (0.6-1.5) mg/dL BUN/Creatinine Ratio (12.00-20.00) Ratio POC Glucose (mg/dL) 159 H 157 H (70-110) mg/dL Crossmatch See Detail 11/02/23 Range/Units 20:41 WBC (4.50-10.00) X 10*3/uL RBC (4.40-5.60) X 10*6/uL Hgb (13.0-17.0) g/dL Hct (39.6-50.0) % MCH (27.0-32.0) pg MCHC (32.0-37.0) g/dL RDW (11.5-14.5) % Plt Count (140-440) X 10*3/uL MPV (9.5-12.2) FL Immature Gran # (0.00-0.04) X 10*3/uL Neutrophils # (1.80-7.70) X 10*3/uL Monocytes # (0.20-1.00) X 10*3/uL Eosinophils # (0.04-0.35) X 10*3/uL Sodium (135-145) mmol/L Chloride (96-109) mmol/L Creatinine (0.6-1.5) mg/dL BUN/Creatinine Ratio (12.00-20.00) Ratio POC Glucose (mg/dL) 156 H (70-110) mg/dL Crossmatch
--- NOTE | 2023-11-03 23:16 | P.PN ---
Subjective Progress Note Date: 11/03/23 This is a 4-year-old male who was recently admitted with severe cachexia and medical debility with concerns of possible EtOH withdrawal being closely monitored. Multiple medical consultations following including oncology and pulmonary along with infectious disease and radiation oncology. Patient is stat post biopsy and awaiting official report. Patient with known history of lung cancer in another facility was diagnosed and failed to follow-up over 3 years ago. Patient is also found to have multiple metastatic lesions in the brain and is maintained on steroid treatment. Patient continues with pain and being evaluated for possible hospice. Family would like the [facility] house although [id number] and cannot afford in [facility] hospice has been consulted and pending. Patient is currently afebrile with no reports of chest pain or shortness of breath. Patient continues report headache and generalized pain with weakness. Patient tolerating diet with no reported nausea or vomiting noted. 10/31/2023 Patient is seen in follow-up today multiple medical consultations following with social work following as well working on discharge planning and family has agreed to [facility] as [facility] was [id number] and currently awaiting authorization from insurance. Family is also looking into possible SNF with hospice that would be somewhere closer to family. Patient is afebrile continued on antibiotics and pain management. No acute overnight events noted. Radiation oncology has evaluated and recommending possible radiation although patient is refusing. Patient awaiting discharge planning. 11/01/2023 Patient is seen in follow-up today with no acute issues noted overnight. Patient with multiple medical consultations following with no plans on any further interventions including radiation therapy. Patient is continued on pain management as well as antibiotics with infectious disease following. Awaiting sputum culture results. Patient is resting comfortably on room air and easily arousable. Patient not endorsing much pain and has not been using IV pain medications. As needed Tylenol per nursing staff. Patient is eating and tolerating oral intake with no reported nausea or vomiting. Social work following working on discharge planning and awaiting todd Wiley discharge determination. 11/02/2023 Patient is lying in bed. Awake alert but lethargic and weak. Current pain management. Patient has been afebrile. No nausea or vomiting. Tolerating oral diet slowly. Otherwise BAL fluid culture showed yeast species. Laboratory showed WBC 11.8 and hemoglobin 6.8 and platelets 728. Sodium 128 potassium 4.5 chloride 95 bicarb is 25.9 BUN 10.3 and creatinine 0.3 blood sugar 98. Patient is being current on IV hydration with normal saline 75 cc/h. On antibiotics in the form of Zosyn. Patient is also on dexamethasone 4 mg IV every 8 hourly. Patient is being transfused with 1 unit of PRBC. 11/03/2023 Patient is resting in bed. Awake alert but weak and lethargic. Currently on room air. Hemodynamically stable. On IV hydration and antibiotics, Zosyn. WBC count is 14.5 and went up to 8.1 today and platelets 732, sodium 132 potassium 4.5 chloride 97 bicarb is 25.3 BUN 12.5 and creatinine 0.3 and blood sugar is 78. Patient is on Zosyn and also dexamethasone 4 mg IV push every 8 hourly. Review of systems: Constitutional: No reports of fatigue, fever, or chills, reports occasional headache Cardiovascular: No reports of chest pain or palpitations Respiratory: No reports of shortness of breath or cough GI: no reports of nausea, no reports of vomiting, no diarrhea : No reports of dysuria or retention Neurovascular: reports of generalized weakness All medications have been reviewed PHYSICAL EXAMINATION: GENERAL: The patient is alert and oriented x2-3, thin built, cachetic, severely emaciated and significant muscle wasting noted HEENT: Pupils are round and equally reacting to light. EOMI. no scleral icterus. No conjunctival pallor. Normocephalic, atraumatic. No pharyngeal erythema. No thyromegaly. CARDIOVASCULAR: S1 and S2 muffled PULMONARY: diminished breath sounds bilaterally with no wheezing or rhonchi noted. ABDOMEN: soft. Nontender on exam. Thin, scaphoid non-distended, normoactive bowel sounds. No palpable organomegaly. MUSCULOSKELETAL: No joint swelling or deformity. EXTREMITIES: No cyanosis, clubbing, or pedal edema. Significant muscle wasted noted of all extremities NEUROLOGICAL: Gross neurological examination did not reveal any focal deficits. Diffuse weakness SKIN: No rashes. 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 Significant protein calorie malnutrition, severe Right aspiration pneumonia versus postobstructive pneumonia, possibly gram- negative Diminished oral intake with significant weight loss and muscle wasting of bilateral upper and lower extremities as well as chest wall Oral and throat cancer history History of continued ongoing nicotine dependence history of EtOH, no active withdrawal and was continued on CIDE protocol THC use Anemia, multifactorial GI prophylaxis DVT prophylaxis no code Plan: Recommend to continue with current medications and management with multiple medical consultations following. 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 Son Saurabh was informed of leaking a decision of possible ECF that could accommodate hospice in the area versus [facility] who has accepted the patient and authorization was obtained. Per son, he was not aware patient was ready for discharge. Will await final decision and continue discharge planning Overall prognosis is extremely poor and guarded and will discuss further with case management/social work on discharge planning Objective - Vital Signs Vital signs: Vital Signs Temp 97.9 F 11/03/23 11:51 Pulse 96 11/03/23 11:51 Resp 16 11/03/23 11:51 BP 109/60 11/03/23 11:51 Pulse Ox 97 11/03/23 11:51 FiO2 21 10/25/23 07:49 Intake & Output 11/02/23 11/03/23 11/03/23 18:59 06:59 18:59 Intake Total 480 310 Output Total 1300 500 Balance -820 -190 Intake: Intake, IV Titration 480 Amount Sodium Chloride 0.9% 1, 480 000 ml @ 40 mls/hr IV . Q24H [facility] Rx#:[id number] Blood Product 0 310 Rc As-1 Unit 0 310 [id number] Output: Urine 1300 500 Other: Voiding Method External Catheter External Catheter External Catheter # Bowel Movements 1 - Labs CBC & Chem 7: 11/03/23 06:15 11/03/23 06:15 Labs: Abnormal Lab Results - Last 24 Hours (Table) 11/02/23 11/02/23 11/02/23 Range/Units 11:37 17:29 20:41 WBC (4.50-10.00) X 10*3/uL RBC (4.40-5.60) X 10*6/uL Hgb (13.0-17.0) g/dL Hct (39.6-50.0) % MCH (27.0-32.0) pg MCHC (32.0-37.0) g/dL RDW (11.5-14.5) % Plt Count (140-440) X 10*3/uL MPV (9.5-12.2) FL Immature Gran # (0.00-0.04) X 10*3/uL Neutrophils # (1.80-7.70) X 10*3/uL Monocytes # (0.20-1.00) X 10*3/uL Eosinophils # (0.04-0.35) X 10*3/uL Hypochromasia (manual) Microcytosis (manual) Sodium (135-145) mmol/L Creatinine (0.6-1.5) mg/dL BUN/Creatinine Ratio (12.00-20.00) Ratio POC Glucose (mg/dL) 157 H 156 H (70-110) mg/dL Crossmatch See Detail 11/03/23 11/03/23 11/03/23 Range/Units 06:15 06:15 11:49 WBC 14.59 H (4.50-10.00) X 10*3/uL RBC 3.14 L (4.40-5.60) X 10*6/uL Hgb 8.1 L (13.0-17.0) g/dL Hct 25.8 L (39.6-50.0) % MCH 25.8 L (27.0-32.0) pg MCHC 31.4 L (32.0-37.0) g/dL RDW 14.7 H (11.5-14.5) % Plt Count 732 H (140-440) X 10*3/uL MPV 8.8 L (9.5-12.2) FL Immature Gran # 0.08 H (0.00-0.04) X 10*3/uL Neutrophils # 11.61 H (1.80-7.70) X 10*3/uL Monocytes # 1.61 H (0.20-1.00) X 10*3/uL Eosinophils # 0.02 L (0.04-0.35) X 10*3/uL Hypochromasia (manual) 2+ A Microcytosis (manual) 2+ A Sodium 132 L (135-145) mmol/L Creatinine 0.3 L (0.6-1.5) mg/dL BUN/Creatinine Ratio 41.67 H (12.00-20.00) Ratio POC Glucose (mg/dL) 158 H (70-110) mg/dL Crossmatch
[2023-11-04] MEDS: DEXAMETHASONE SOD PHOSPHATE 4 MG/ML 1 ML VIAL IVP SCH ×3 (03:21→19:48)
[2023-11-04] MEDS: SODIUM CHLORIDE 0.9% 1,000 ML IV SCH ×3 (03:22→21:10)
[2023-11-04 06:57] LABS: Glucose,Whole Blood 89 mg/dL (70-110)
[2023-11-04] MEDS: INSULIN ASPART (NovoLOG) 100 UNIT/ML VIAL SQ SCH ×4 (07:52→20:48)
[2023-11-04] MEDS: NICOTINE 21MG/24HR PATCH TRANSDERM SCH (08:43)
[2023-11-04] MEDS: PIPERACILLIN-TAZOBACTAM 3.375 GM in SODIUM CHLORIDE 0.9% 100 ML IVPB SCH (08:43)
[2023-11-04] MEDS: HEPARIN SODIUM,PORCINE 5,000 UNIT/ML 1 ML VIAL SQ SCH ×2 (08:43→19:48)
[2023-11-04 11:01] LABS: Basophils # (A) 0.02 X 10*3/uL (0.00-0.10); Basophils % (A) 0.1 %; Eosinophils # (A) 0.02 X 10*3/uL (0.04-0.35); Eosinophils % (A) 0.1 %; HCT 25.3 % (39.6-50.0); HGB 7.9 g/dL (13.0-17.0); Lymphocytes # (A) 1.24 X 10*3/uL (0.90-5.00); MCH 26.2 pg (27.0-32.0); MCHC 31.2 g/dL (32.0-37.0); MCV 83.8 FL (80.0-97.0); Mean Platelet Volume 8.8 FL (9.5-12.2); Monocytes # (A) 1.68 X 10*3/uL (0.20-1.00); Monocytes % (A) 12.2 %; NRBC Per 100 WBC 0 X 10*3/uL (0.00-0.01); Neutrophils # (A) 10.77 X 10*3/uL (1.80-7.70); Neutrophils % (A) 78.1 %; Platelet Count 740 X 10*3/uL (140-440); RBC 3.02 X 10*6/uL (4.40-5.60)
[2023-11-04 11:10] LABS: Blood Urea Nitrogen 12.9 mg/dL (9.0-27.0); Calcium 8.9 mg/dL (8.7-10.3); Carbon Dioxide 25.1 mmol/L (21.6-31.8); Chloride 97 mmol/L (96-109); Glucose 72 mg/dL (70-110); Potassium 4.7 mmol/L (3.5-5.5); Sodium 132 mmol/L (135-145)
[2023-11-04 11:31] LABS: Glucose,Whole Blood 130 mg/dL (70-110)
[2023-11-04 17:11] LABS: Glucose,Whole Blood 140 mg/dL (70-110)
[2023-11-04 20:13] LABS: Glucose,Whole Blood 155 mg/dL (70-110)
[2023-11-05] MEDS: DEXAMETHASONE SOD PHOSPHATE 4 MG/ML 1 ML VIAL IVP SCH ×3 (03:52→21:57)
--- NOTE | 2023-11-05 05:23 | P.PN ---
Subjective Progress Note Date: 11/05/23 This is a 4-year-old male who was recently admitted with severe cachexia and medical debility with concerns of possible EtOH withdrawal being closely monitored. Multiple medical consultations following including oncology and pulmonary along with infectious disease and radiation oncology. Patient is [facility] post biopsy and awaiting official report. Patient with known history of lung cancer in another facility was diagnosed and failed to follow-up over 3 years ago. Patient is also found to have multiple metastatic lesions in the brain and is maintained on steroid treatment. Patient continues with pain and being evaluated for possible hospice. Family would like the [facility] although [id number] and cannot afford in [facility] hospice has been consulted and pending. Patient is currently afebrile with no reports of chest pain or shortness of breath. Patient continues report headache and generalized pain with weakness. Patient tolerating diet with no reported nausea or vomiting noted. 10/31/2023 Patient is seen in follow-up today multiple medical consultations following with social work following as well working on discharge planning and family has agreed to [facility] as [facility] was [id number] and currently awaiting authorization from insurance. Family is also looking into possible SNF with hospice that would be somewhere closer to family. Patient is afebrile continued on antibiotics and pain management. No acute overnight events noted. Radiation oncology has evaluated and recommending possible radiation although patient is refusing. Patient awaiting discharge planning. 11/01/2023 Patient is seen in follow-up today with no acute issues noted overnight. Patient with multiple medical consultations following with no plans on any further interventions including radiation therapy. Patient is continued on pain management as well as antibiotics with infectious disease following. Awaiting sputum culture results. Patient is resting comfortably on room air and easily arousable. Patient not endorsing much pain and has not been using IV pain medications. As needed Tylenol per nursing staff. Patient is eating and tolerating oral intake with no reported nausea or vomiting. Social work following working on discharge planning and awaiting todd Wiley discharge determination. 11/02/2023 Patient is lying in bed. Awake alert but lethargic and weak. Current pain management. Patient has been afebrile. No nausea or vomiting. Tolerating oral diet slowly. Otherwise BAL fluid culture showed yeast species. Laboratory showed WBC 11.8 and hemoglobin 6.8 and platelets 728. Sodium 128 potassium 4.5 chloride 95 bicarb is 25.9 BUN 10.3 and creatinine 0.3 blood sugar 98. Patient is being current on IV hydration with normal saline 75 cc/h. On antibiotics in the form of Zosyn. Patient is also on dexamethasone 4 mg IV every 8 hourly. Patient is being transfused with 1 unit of PRBC. 11/03/2023 Patient is resting in bed. Awake alert but weak and lethargic. Currently on room air. Hemodynamically stable. On IV hydration and antibiotics, Zosyn. WBC count is 14.5 and went up to 8.1 today and platelets 732, sodium 132 potassium 4.5 chloride 97 bicarb is 25.3 BUN 12.5 and creatinine 0.3 and blood sugar is 78. Patient is on Zosyn and also dexamethasone 4 mg IV push every 8 hourly. 11/04/2023 Patient is seen in follow-up this morning reporting feeling fatigued and nauseated. Patient was continued on antibiotics although has been discontinued with infectious disease following as patient has received adequate amount of Zosyn with concerns of aspiration pneumonia. Patient being followed by oncology and has discussed hospice and currently awaiting discharge planning with family and looking into possible ECF. Patient has been declined by [facility] regarding financial issues and awaiting a guardianship hearing This 11/06/2023. [facility] during the case as well. Patient was accepted at [facility] although quite far away for family to visit with the patient and looking into other options. Patient's denies chest pain or shortness of breath. Patient is extremely weak and needs encouragement with meals. Review of systems: Constitutional: No reports of fatigue, fever, or chills, reports occasional headache Cardiovascular: No reports of chest pain or palpitations Respiratory: No reports of shortness of breath or cough GI: reports of nausea, no reports of vomiting, no diarrhea : No reports of dysuria or retention Neurovascular: reports significant generalized weakness All medications have been reviewed PHYSICAL EXAMINATION: GENERAL: The patient is alert and oriented x2-3, thin built, cachetic, severely emaciated and significant muscle wasting noted HEENT: Pupils are round and equally reacting to light. EOMI. no scleral icterus. No conjunctival pallor. Normocephalic, atraumatic. No pharyngeal erythema. No thyromegaly. CARDIOVASCULAR: S1 and S2 muffled PULMONARY: diminished breath sounds bilaterally with no wheezing scattered rhonchi noted. ABDOMEN: soft. Nontender on exam. Thin, scaphoid non-distended, normoactive bowel sounds. No palpable organomegaly. MUSCULOSKELETAL: No joint swelling or deformity. EXTREMITIES: No cyanosis, clubbing, or pedal edema. Significant muscle wasted noted of all extremities NEUROLOGICAL: Gross neurological examination did not reveal any focal deficits. Diffuse weakness SKIN: No rashes. 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 Significant protein calorie malnutrition, severe Right aspiration pneumonia versus postobstructive pneumonia, possibly gram-negat brandie, treated and being monitored off antibiotics with ID following Diminished oral intake with significant weight loss and muscle wasting of bilateral upper and lower extremities as well as chest wall Oral and throat cancer history History of continued ongoing nicotine dependence history of EtOH, no active withdrawal and was continued on CIWA protocol THC use Anemia, multifactorial, required 1 unit of PRBC this admission GI prophylaxis DVT prophylaxis no code Plan: Recommend to continue with current medications and management with multiple medical consultations following. 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 Son Saurabh was informed of leaking a decision of possible ECF that could accommodate hospice in the area versus [facility] who has accepted the patient and authorization was obtained. Multiple locations in this area have declined the patient due to financial issues and [facility] is reviewing. Patient does have a guardianship hearing on 11/06/2023 of which ECF is pending as well. Overall prognosis is extremely poor and guarded and will discuss further with case management/social work on discharge planning once patient has a guardian The impression and plan of care has been dictated by Krissy Abad, nurse practitioner as directed. Dr. Magda MD I have performed a history and examination and MDM of this patient, discussed the same with the dictator, and agree with the dictator's assessment and plan as written ,documented as a scribe. Based on total visit time, I have performed more than 50% of the visit. Any additional findings or plans will be noted. Objective - Vital Signs Vital signs: Vital Signs Temp 98.6 F 11/05/23 01:22 Pulse 89 11/05/23 01:22 Resp 16 11/05/23 01:22 BP 119/72 11/05/23 01:22 Pulse Ox 98 11/05/23 01:22 FiO2 21 10/25/23 07:49 Intake & Output 11/04/23 11/04/23 11/05/23 06:59 18:59 06:59 Intake Total 1380 118 Output Total 1100 650 650 Balance 280 -650 -532 Intake: Intake, IV Titration 900 Amount Sodium Chloride 0.9% 1, 900 000 ml @ 75 mls/hr IV . [id number] [facility] Rx#:[id number] Oral 480 118 Output: Urine 1100 650 650 Other: Voiding Method External Catheter Diaper Diaper External Catheter External Catheter # Bowel Movements 1 - Labs CBC & Chem 7: 11/04/23 06:09 11/04/23 06:09 Labs: Abnormal Lab Results - Last 24 Hours (Table) 11/04/23 11/04/23 11/04/23 Range/Units 06:09 06:09 11:29 WBC 13.80 H (4.50-10.00) X 10*3/uL RBC 3.02 L (4.40-5.60) X 10*6/uL Hgb 7.9 L (13.0-17.0) g/dL Hct 25.3 L (39.6-50.0) % MCH 26.2 L (27.0-32.0) pg MCHC 31.2 L (32.0-37.0) g/dL RDW 15.0 H (11.5-14.5) % Plt Count 740 H (140-440) X 10*3/uL MPV 8.8 L (9.5-12.2) FL Immature Gran # 0.07 H (0.00-0.04) X 10*3/uL Neutrophils # 10.77 H (1.80-7.70) X 10*3/uL Monocytes # 1.68 H (0.20-1.00) X 10*3/uL Eosinophils # 0.02 L (0.04-0.35) X 10*3/uL Sodium 132 L (135-145) mmol/L Creatinine 0.3 L (0.6-1.5) mg/dL BUN/Creatinine Ratio 43.00 H (12.00-20.00) Ratio POC Glucose (mg/dL) 130 H (70-110) mg/dL 11/04/23 11/04/23 Range/Units 17:09 20:11 WBC (4.50-10.00) X 10*3/uL RBC (4.40-5.60) X 10*6/uL Hgb (13.0-17.0) g/dL Hct (39.6-50.0) % MCH (27.0-32.0) pg MCHC (32.0-37.0) g/dL RDW (11.5-14.5) % Plt Count (140-440) X 10*3/uL MPV (9.5-12.2) FL Immature Gran # (0.00-0.04) X 10*3/uL Neutrophils # (1.80-7.70) X 10*3/uL Monocytes # (0.20-1.00) X 10*3/uL Eosinophils # (0.04-0.35) X 10*3/uL Sodium (135-145) mmol/L Creatinine (0.6-1.5) mg/dL BUN/Creatinine Ratio (12.00-20.00) Ratio POC Glucose (mg/dL) 140 H 155 H (70-110) mg/dL Microbiology - Last 24 Hours (Table) 10/25/23 14:15 Acid Fast Bacilli Smear - Preliminary Bronchoalviolar Lavage - Right Acid Fast Bacilli Culture - Preliminary 10/25/23 14:20 Acid Fast Bacilli Smear - Preliminary Bronchoalviolar Lavage - Left Acid Fast Bacilli Culture - Preliminary 10/25/23 14:15 Fungal Culture - Preliminary Bronchoalviolar Lavage - Right
[2023-11-05 06:59] LABS: Glucose,Whole Blood 114 mg/dL (70-110)
[2023-11-05] MEDS: INSULIN ASPART (NovoLOG) 100 UNIT/ML VIAL SQ SCH ×4 (08:53→21:57)
[2023-11-05] MEDS: HEPARIN SODIUM,PORCINE 5,000 UNIT/ML 1 ML VIAL SQ SCH ×2 (08:56→21:57)
[2023-11-05] MEDS: NICOTINE 21MG/24HR PATCH TRANSDERM SCH (08:56)
[2023-11-05] MEDS: SODIUM CHLORIDE 0.9% 1,000 ML IV SCH (09:00)
[2023-11-05 11:58] LABS: Glucose,Whole Blood 119 mg/dL (70-110)
--- NOTE | 2023-11-05 14:35 | P.PN ---
Subjective Progress Note Date: 11/05/23 This is a 4-year-old male who was recently admitted with severe cachexia and medical debility with concerns of possible EtOH withdrawal being closely monitored. Multiple medical consultations following including oncology and pulmonary along with infectious disease and radiation oncology. Patient is st [facility]us post biopsy and awaiting official report. Patient with known history of lung cancer in another facility was diagnosed and failed to follow-up over 3 years ago. Patient is also found to have multiple metastatic lesions in the brain and is maintained on steroid treatment. Patient continues with pain and being evaluated for possible hospice. Family would like the [facility] although [id number] and cannot afford in [facility] hospice has been consulted and pending. Patient is currently afebrile with no reports of chest pain or shortness of breath. Patient continues report headache and generalized pain with weakness. Patient tolerating diet with no reported nausea or vomiting noted. 10/31/2023 Patient is seen in follow-up today multiple medical consultations following with social work following as well working on discharge planning and family has agreed to [facility] as [facility] was [id number] and currently awaiting authorization from insurance. Family is also looking into possible SNF with hospice that would be somewhere closer to family. Patient is afebrile continued on antibiotics and pain management. No acute overnight events noted. Radiation oncology has evaluated and recommending possible radiation although patient is refusing. Patient awaiting discharge planning. 11/01/2023 Patient is seen in follow-up today with no acute issues noted overnight. Patient with multiple medical consultations following with no plans on any further interventions including radiation therapy. Patient is continued on pain management as well as antibiotics with infectious disease following. Awaiting sputum culture results. Patient is resting comfortably on room air and easily arousable. Patient not endorsing much pain and has not been using IV pain medications. As needed Tylenol per nursing staff. Patient is eating and tolerating oral intake with no reported nausea or vomiting. Social work following working on discharge planning and awaiting todd Wiley discharge determination. 11/02/2023 Patient is lying in bed. Awake alert but lethargic and weak. Current pain management. Patient has been afebrile. No nausea or vomiting. Tolerating oral diet slowly. Otherwise BAL fluid culture showed yeast species. Laboratory showed WBC 11.8 and hemoglobin 6.8 and platelets 728. Sodium 128 potassium 4.5 chloride 95 bicarb is 25.9 BUN 10.3 and creatinine 0.3 blood sugar 98. Patient is being current on IV hydration with normal saline 75 cc/h. On antibiotics in the form of Zosyn. Patient is also on dexamethasone 4 mg IV every 8 hourly. Patient is being transfused with 1 unit of PRBC. 11/03/2023 Patient is resting in bed. Awake alert but weak and lethargic. Currently on room air. Hemodynamically stable. On IV hydration and antibiotics, Zosyn. WBC count is 14.5 and went up to 8.1 today and platelets 732, sodium 132 potassium 4.5 chloride 97 bicarb is 25.3 BUN 12.5 and creatinine 0.3 and blood sugar is 78. Patient is on Zosyn and also dexamethasone 4 mg IV push every 8 hourly. 11/04/2023 Patient is seen in follow-up this morning reporting feeling fatigued and nauseated. Patient was continued on antibiotics although has been discontinued with infectious disease following as patient has received adequate amount of Zosyn with concerns of aspiration pneumonia. Patient being followed by oncology and has discussed hospice and currently awaiting discharge planning with family and looking into possible ECF. Patient has been declined by [facility] regarding financial issues and awaiting a guardianship hearing This 11/06/2023. [employer] during the case as well. Patient was accepted at [facility] although quite far away for family to visit with the patient and looking into other options. Patient's denies chest pain or shortness of breath. Patient is extremely weak and needs encouragement with meals. 11/05/2023 Patient is seen in follow-up today with no acute overnight issues noted. Patient scheduled the have a guardianship hearing on 11/06/2023 with APS involved working on possible guardianship with [facility] as well as his son Saurabh. Patient being evaluated for ECF with hospice and [facility] is reviewing. Family would like patient to stay more local as opposed to [facility] hospice as they would not be able to visit him out there. Patient will also require insurance authorization for ECF. Patient is currently afebrile with no reported chest pa in or shortness of breath. Patient is tolerating diet and nursing staff reports he is eating although continues on gentle IV hydration. Sodium remains slightly low at 132 and will follow up on repeat labs. Review of systems: Constitutional: No reports of fatigue, fever, or chills, reports occasional headache Cardiovascular: No reports of chest pain or palpitations Respiratory: No reports of shortness of breath or cough GI: reports of nausea, no reports of vomiting, no diarrhea : No reports of dysuria or retention Neurovascular: reports significant generalized weakness All medications have been reviewed PHYSICAL EXAMINATION: GENERAL: The patient is alert and oriented x2-3, thin built, cachetic, severely emaciated and significant muscle wasting noted HEENT: Pupils are round and equally reacting to light. EOMI. no scleral icterus. No conjunctival pallor. Normocephalic, atraumatic. No pharyngeal erythema. No thyromegaly. CARDIOVASCULAR: S1 and S2 muffled PULMONARY: diminished breath sounds bilaterally with no wheezing scattered rhonchi noted. ABDOMEN: soft. Nontender on exam. Thin, scaphoid non-distended, normoactive bowel sounds. No palpable organomegaly. MUSCULOSKELETAL: No joint swelling or deformity. EXTREMITIES: No cyanosis, clubbing, or pedal edema. Significant muscle wasted noted of all extremities NEUROLOGICAL: Gross neurological examination did not reveal any focal deficits. Diffuse weakness SKIN: No rashes. 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 Significant protein calorie malnutrition, severe Right aspiration pneumonia versus postobstructive pneumonia, possibly gram- negative, treated and being monitored off antibiotics with ID following Diminished oral intake with significant weight loss and muscle wasting of bilateral upper and lower extremities as well as chest wall Oral and throat cancer history History of continued ongoing nicotine dependence history of EtOH, no active withdrawal and was continued on CIWA protocol THC use Anemia, multifactorial, required 1 unit of PRBC this admission GI prophylaxis DVT prophylaxis no code Plan: Recommend to continue with current medications and management with multiple medical consultations following. Oncology along with radiation oncology and pulmonary following and family and discussion of overall poor prognosis and patient refusing any further treatment Continue current regimen including pain management Social work following awaiting and Patient does have a guardianship hearing on 11/06/2023 of which ECF is pending as well. [facility] considering once patient has a guardian and will also require insurance authorization. Discussed with social work about submitting for authorization. Overall prognosis is extremely poor and guarded and will discuss further with case management/social work on discharge planning once patient has a guardian The impression and plan of care has been dictated by Krissy Abad, nurse practitioner as directed. Dr. Magda MD I have performed a history and examination and MDM of this patient, discussed the same with the dictator, and agree with the dictator's assessment and plan as written ,documented as a scribe. Based on total visit time, I have performed more than 50% of the visit. Any additional findings or plans will be noted. Objective - Vital Signs Vital signs: Vital Signs Temp 98.4 F 11/05/23 07:28 Pulse 87 11/05/23 07:28 Resp 16 11/05/23 07:28 BP 118/51 11/05/23 07:28 Pulse Ox 98 11/05/23 07:28 FiO2 21 10/25/23 07:49 Intake & Output 11/04/23 11/05/23 11/05/23 18:59 06:59 18:59 Intake Total 1018 Output Total 650 1450 Balance -650 -432 Intake: Intake, IV Titration 900 Amount Sodium Chloride 0.9% 1, 900 000 ml @ 75 mls/hr IV . [id number] Rx#:[id number] Oral 118 Output: Urine 650 1450 Other: Voiding Method Diaper Diaper Diaper External Catheter External Catheter External Catheter - Labs CBC & Chem 7: 11/04/23 06:09 11/04/23 06:09 Labs: Abnormal Lab Results - Last 24 Hours (Table) 11/04/23 11/04/23 11/04/23 Range/Units 06:09 06:09 11:29 WBC 13.80 H (4.50-10.00) X 10*3/uL RBC 3.02 L (4.40-5.60) X 10*6/uL Hgb 7.9 L (13.0-17.0) g/dL Hct 25.3 L (39.6-50.0) % MCH 26.2 L (27.0-32.0) pg MCHC 31.2 L (32.0-37.0) g/dL RDW 15.0 H (11.5-14.5) % Plt Count 740 H (140-440) X 10*3/uL MPV 8.8 L (9.5-12.2) FL Immature Gran # 0.07 H (0.00-0.04) X 10*3/uL Neutrophils # 10.77 H (1.80-7.70) X 10*3/uL Monocytes # 1.68 H (0.20-1.00) X 10*3/uL Eosinophils # 0.02 L (0.04-0.35) X 10*3/uL Sodium 132 L (135-145) mmol/L Creatinine 0.3 L (0.6-1.5) mg/dL BUN/Creatinine Ratio 43.00 H (12.00-20.00) Ratio POC Glucose (mg/dL) 130 H (70-110) mg/dL 11/04/23 11/04/23 11/05/23 Range/Units 17:09 20:11 06:58 WBC (4.50-10.00) X 10*3/uL RBC (4.40-5.60) X 10*6/uL Hgb (13.0-17.0) g/dL Hct (39.6-50.0) % MCH (27.0-32.0) pg MCHC (32.0-37.0) g/dL RDW (11.5-14.5) % Plt Count (140-440) X 10*3/uL MPV (9.5-12.2) FL Immature Gran # (0.00-0.04) X 10*3/uL Neutrophils # (1.80-7.70) X 10*3/uL Monocytes # (0.20-1.00) X 10*3/uL Eosinophils # (0.04-0.35) X 10*3/uL Sodium (135-145) mmol/L Creatinine (0.6-1.5) mg/dL BUN/Creatinine Ratio (12.00-20.00) Ratio POC Glucose (mg/dL) 140 H 155 H 114 H (70-110) mg/dL Microbiology - Last 24 Hours (Table) 10/25/23 14:15 Acid Fast Bacilli Smear - Preliminary Bronchoalviolar Lavage - Right Acid Fast Bacilli Culture - Preliminary 10/25/23 14:20 Acid Fast Bacilli Smear - Preliminary Bronchoalviolar Lavage - Left Acid Fast Bacilli Culture - Preliminary 10/25/23 14:15 Fungal Culture - Preliminary Bronchoalviolar Lavage - Right
[2023-11-05] MEDS ORDERED: DOCUSATE 100 MG CAP PO PRN (16:15)
[2023-11-05] MEDS: BISMUTH SUBSALICYLATE 4,192 MG/240 ML BOTTLE PO PRN ×2 (16:16→17:23)
[2023-11-05 17:14] LABS: Glucose,Whole Blood 153 mg/dL (70-110)
[2023-11-05 20:15] LABS: Glucose,Whole Blood 183 mg/dL (70-110)
[2023-11-05] MEDS: ALPRAZolam 0.25 MG TAB PO PRN (21:57)
[2023-11-06] MEDS: BISMUTH SUBSALICYLATE 4,192 MG/240 ML BOTTLE PO PRN ×3 (00:25→20:00)
[2023-11-06] MEDS: DEXAMETHASONE SOD PHOSPHATE 4 MG/ML 1 ML VIAL IVP SCH ×3 (06:14→19:59)
[2023-11-06 07:13] LABS: Glucose,Whole Blood 106 mg/dL (70-110)
[2023-11-06] MEDS: INSULIN ASPART (NovoLOG) 100 UNIT/ML VIAL SQ SCH ×4 (07:13→20:18)
[2023-11-06] MEDS: HEPARIN SODIUM,PORCINE 5,000 UNIT/ML 1 ML VIAL SQ SCH ×2 (09:17→19:59)
[2023-11-06] MEDS: NICOTINE 21MG/24HR PATCH TRANSDERM SCH (09:17)
[2023-11-06] MEDS: SODIUM CHLORIDE 0.9% 1,000 ML IV SCH ×2 (09:18→19:59)
[2023-11-06 11:00] LABS: Basophils # (A) 0.02 X 10*3/uL (0.00-0.10); Basophils % (A) 0.2 %; Eosinophils # (A) 0.01 X 10*3/uL (0.04-0.35); Eosinophils % (A) 0.1 %; HCT 24.5 % (39.6-50.0); HGB 7.6 g/dL (13.0-17.0); Lymphocytes # (A) 1.16 X 10*3/uL (0.90-5.00); Lymphocytes % (A) 9.6 %; MCH 26.1 pg (27.0-32.0); MCV 84.2 FL (80.0-97.0); Mean Platelet Volume 8.7 FL (9.5-12.2); Monocytes # (A) 1.13 X 10*3/uL (0.20-1.00); Monocytes % (A) 9.3 %; NRBC Per 100 WBC 0 X 10*3/uL (0.00-0.01); Neutrophils # (A) 9.71 X 10*3/uL (1.80-7.70); Neutrophils % (A) 80.1 %; Platelet Count 686 X 10*3/uL (140-440); RBC 2.91 X 10*6/uL (4.40-5.60); RDW 15.2 % (11.5-14.5); WBC 12.12 X 10*3/uL (4.50-10.00)
[2023-11-06 11:16] LABS: Blood Urea Nitrogen 9.3 mg/dL (9.0-27.0); Calcium 8.8 mg/dL (8.7-10.3); Carbon Dioxide 24.7 mmol/L (21.6-31.8); Chloride 96 mmol/L (96-109); Glucose 85 mg/dL (70-110); Potassium 4.8 mmol/L (3.5-5.5); Sodium 131 mmol/L (135-145)
[2023-11-06 11:52] LABS: Glucose,Whole Blood 176 mg/dL (70-110)
[2023-11-06 16:58] LABS: Glucose,Whole Blood 165 mg/dL (70-110)
[2023-11-06] MEDS: ALPRAZolam 0.25 MG TAB PO PRN (19:59)
[2023-11-06 20:10] LABS: Glucose,Whole Blood 131 mg/dL (70-110)
[2023-11-06 20:28] VITALS: RESP 16
[2023-11-07] MEDS: DEXAMETHASONE SOD PHOSPHATE 4 MG/ML 1 ML VIAL IVP SCH ×2 (04:06→12:07)
--- NOTE | 2023-11-07 05:45 | P.PN ---
Subjective Progress Note Date: 11/06/23 This is a 4-year-old male who was recently admitted with severe cachexia and medical debility with concerns of possible EtOH withdrawal being closely monitored. Multiple medical consultations following including oncology and pulmonary along with infectious disease and radiation oncology. Patient is st [facility] post biopsy and awaiting official report. Patient with known history of lung cancer in another facility was diagnosed and failed to follow-up over 3 years ago. Patient is also found to have multiple metastatic lesions in the brain and is maintained on steroid treatment. Patient continues with pain and being evaluated for possible hospice. Family would like the [facility] house although [id number] and cannot afford in [facility] hospice has been consulted and pending. Patient is currently afebrile with no reports of chest pain or shortness of breath. Patient continues report headache and generalized pain with weakness. Patient tolerating diet with no reported nausea or vomiting noted. 10/31/2023 Patient is seen in follow-up today multiple medical consultations following with social work following as well working on discharge planning and family has agreed to [facility] as [id number] and currently awaiting authorization from insurance. Family is also looking into possible SNF with hospice that would be somewhere closer to family. Patient is afebrile continued on antibiotics and pain management. No acute overnight events noted. Radiation oncology has evaluated and recommending possible radiation although patient is refusing. Patient awaiting discharge planning. 11/01/2023 Patient is seen in follow-up today with no acute issues noted overnight. Patient with multiple medical consultations following with no plans on any further interventions including radiation therapy. Patient is continued on pain management as well as antibiotics with infectious disease following. Awaiting sputum culture results. Patient is resting comfortably on room air and easily arousable. Patient not endorsing much pain and has not been using IV pain medications. As needed Tylenol per nursing staff. Patient is eating and tolerating oral intake with no reported nausea or vomiting. Social work following working on discharge planning and awaiting todd Wiley discharge determination. 11/02/2023 Patient is lying in bed. Awake alert but lethargic and weak. Current pain management. Patient has been afebrile. No nausea or vomiting. Tolerating oral diet slowly. Otherwise BAL fluid culture showed yeast species. Laboratory showed WBC 11.8 and hemoglobin 6.8 and platelets 728. Sodium 128 potassium 4.5 chloride 95 bicarb is 25.9 BUN 10.3 and creatinine 0.3 blood sugar 98. Patient is being current on IV hydration with normal saline 75 cc/h. On antibiotics in the form of Zosyn. Patient is also on dexamethasone 4 mg IV every 8 hourly. Patient is being transfused with 1 unit of PRBC. 11/03/2023 Patient is resting in bed. Awake alert but weak and lethargic. Currently on room air. Hemodynamically stable. On IV hydration and antibiotics, Zosyn. WBC count is 14.5 and went up to 8.1 today and platelets 732, sodium 132 potassium 4.5 chloride 97 bicarb is 25.3 BUN 12.5 and creatinine 0.3 and blood sugar is 78. Patient is on Zosyn and also dexamethasone 4 mg IV push every 8 hourly. 11/04/2023 Patient is seen in follow-up this morning reporting feeling fatigued and nauseated. Patient was continued on antibiotics although has been discontinued with infectious disease following as patient has received adequate amount of Zosyn with concerns of aspiration pneumonia. Patient being followed by oncology and has discussed hospice and currently awaiting discharge planning with family and looking into possible ECF. Patient has been declined by [facility] regarding financial issues and awaiting a guardianship hearing This 11/06/2023. [facility] during the case as well. Patient was accepted at [facility] although quite far away for family to visit with the patient and looking into other options. Patient's denies chest pain or shortness of breath. Patient is extremely weak and needs encouragement with meals. 11/05/2023 Patient is seen in follow-up today with no acute overnight issues noted. Patient scheduled the have a guardianship hearing on 11/06/2023 with APS involved working on possible guardianship with [facility] as well as his son Saurabh. Patient being evaluated for ECF with hospice and [facility] is reviewing. Family would like patient to stay more local as opposed to [facility] hospice as they would not be able to visit him out there. Patient will also require insurance authorization for ECF. Patient is currently afebrile with no reported chest pa in or shortness of breath. Patient is tolerating diet and nursing staff reports he is eating although continues on gentle IV hydration. Sodium remains slightly low at 132 and will follow up on repeat labs. 11/06/2023 Patient is seen and evaluated in follow-up today reporting no acute issues. Faustina mark reports he is tolerating diet with no reported nausea or vomiting today. Patient is awaiting a court hearing for guardianship this afternoon with social work following and arranging for discharge to [facility] with hospice services. ECF is awaiting guardian to move forward with authorization. Patient is currently afebrile denies any chest pain or shortness of breath. Patient has been encouraged to increase activity as tolerated as patient is mostly laying in bed throughout the day. Will obtain repeat labs in a.m. Review of systems: Constitutional: No reports of fatigue, fever, or chills, reports occasional headache Cardiovascular: No reports of chest pain or palpitations Respiratory: No reports of shortness of breath or cough GI: No reports of nausea, no reports of vomiting, no diarrhea : No reports of dysuria or retention Neurovascular: reports significant generalized weakness All medications have been reviewed PHYSICAL EXAMINATION: GENERAL: The patient is alert and oriented x2-3, thin built, cachetic, severely emaciated and significant muscle wasting noted HEENT: Pupils are round and equally reacting to light. EOMI. no scleral icterus. No conjunctival pallor. Normocephalic, atraumatic. No pharyngeal erythema. No thyromegaly. CARDIOVASCULAR: S1 and S2 muffled PULMONARY: diminished breath sounds bilaterally with no wheezing scattered rhonchi noted. ABDOMEN: soft. Nontender on exam. Thin, scaphoid non-distended, normoactive bowel sounds. No palpable organomegaly. MUSCULOSKELETAL: No joint swelling or deformity. EXTREMITIES: No cyanosis, clubbing, or pedal edema. Significant muscle wasted noted of all extremities NEUROLOGICAL: Gross neurological examination did not reveal any focal deficits. Diffuse weakness SKIN: No rashes. 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 Significant protein calorie malnutrition, severe Right aspiration pneumonia versus postobstructive pneumonia, possibly gram- negative, treated and being monitored off antibiotics with ID following Diminished oral intake with significant weight loss and muscle wasting of bilateral upper and lower extremities as well as chest wall Oral and throat cancer history History of continued ongoing nicotine dependence history of EtOH, no active withdrawal THC use Anemia, multifactorial, required 1 unit of PRBC this admission GI prophylaxis DVT prophylaxis no code Plan: Recommend to continue with current medications and management with multiple [facility] consultations following. Oncology along with radiation oncology and pulmonary following and family and discussion of overall poor prognosis and patient refusing any further treatment Continue current regimen including pain management Social work following awaiting and Patient does have a guardianship hearing today 11/06/2023 of which ECF is pending as well. [facility] [place] considering once patient has a guardian and will also require insurance authorization. Discussed with social work about submitting for authorization and they will submit once there is a guardian. Overall prognosis is extremely poor and guarded and will discuss further with case management/social work on discharge planning once patient has a guardian Possible discharge in the next 24-48 hours The impression and plan of care has been dictated by Krissy Abad, nurse practitioner as directed. Dr. Magda MD I have performed a history and examination and MDM of this patient, discussed the same with the dictator, and agree with the dictator's assessment and plan as written ,documented as a scribe. Based on total visit time, I have performed more than 50% of the visit. Any additional findings or plans will be noted. Objective - Vital Signs Vital signs: Vital Signs Temp 98.4 F 11/07/23 02:00 Pulse 79 11/07/23 02:00 Resp 16 11/07/23 02:00 BP 113/79 11/07/23 02:00 Pulse Ox 100 11/07/23 02:00 FiO2 21 10/25/23 07:49 Intake & Output 11/06/23 11/06/23 11/07/23 06:59 18:59 06:59 Intake Total 753 505 7803 Output Total 500 900 Balance 400 900 500 Intake: Intake, IV Titration 900 900 900 Amount Sodium Chloride 0.9% 1, 900 900 900 000 ml @ 75 mls/hr IV . [id number] [facility] Rx#:[id number] Oral 500 Output: Urine 500 900 Other: Voiding Method Diaper Diaper Diaper External Catheter External Catheter External Catheter # Voids 2 - Labs CBC & Chem 7: 11/06/23 06:54 11/06/23 06:54 Labs: Abnormal Lab Results - Last 24 Hours (Table) 11/06/23 11/06/23 11/06/23 Range/Units 06:54 06:54 11:51 WBC 12.12 H (4.50-10.00) X 10*3/uL RBC 2.91 L (4.40-5.60) X 10*6/uL Hgb 7.6 L (13.0-17.0) g/dL Hct 24.5 L (39.6-50.0) % MCH 26.1 L (27.0-32.0) pg MCHC 31.0 L (32.0-37.0) g/dL RDW 15.2 H (11.5-14.5) % Plt Count 686 H (140-440) X 10*3/uL MPV 8.7 L (9.5-12.2) FL Immature Gran # 0.09 H (0.00-0.04) X 10*3/uL Neutrophils # 9.71 H (1.80-7.70) X 10*3/uL Monocytes # 1.13 H (0.20-1.00) X 10*3/uL Eosinophils # 0.01 L (0.04-0.35) X 10*3/uL Sodium 131 L (135-145) mmol/L Creatinine 0.3 L (0.6-1.5) mg/dL BUN/Creatinine Ratio 31.00 H (12.00-20.00) Ratio POC Glucose (mg/dL) 176 H (70-110) mg/dL 11/06/23 11/06/23 Range/Units 16:55 20:08 WBC (4.50-10.00) X 10*3/uL RBC (4.40-5.60) X 10*6/uL Hgb (13.0-17.0) g/dL Hct (39.6-50.0) % MCH (27.0-32.0) pg MCHC (32.0-37.0) g/dL RDW (11.5-14.5) % Plt Count (140-440) X 10*3/uL MPV (9.5-12.2) FL Immature Gran # (0.00-0.04) X 10*3/uL Neutrophils # (1.80-7.70) X 10*3/uL Monocytes # (0.20-1.00) X 10*3/uL Eosinophils # (0.04-0.35) X 10*3/uL Sodium (135-145) mmol/L Creatinine (0.6-1.5) mg/dL BUN/Creatinine Ratio (12.00-20.00) Ratio POC Glucose (mg/dL) 165 H 131 H (70-110) mg/dL
[2023-11-07 07:21] LABS: Glucose,Whole Blood 163 mg/dL (70-110)
[2023-11-07] MEDS: HEPARIN SODIUM,PORCINE 5,000 UNIT/ML 1 ML VIAL SQ SCH (07:43)
[2023-11-07] MEDS: INSULIN ASPART (NovoLOG) 100 UNIT/ML VIAL SQ SCH ×2 (07:43→12:57)
[2023-11-07] MEDS: NICOTINE 21MG/24HR PATCH TRANSDERM SCH (07:44)
[2023-11-07] MEDS: SODIUM CHLORIDE 0.9% 1,000 ML IV SCH (07:45)
[2023-11-07 07:51] LABS: Basophils % (A) 0 %; Eosinophils % (A) 0 %; HCT 28.3 % (39.0-53.0); HGB 8.4 gm/dL (13.0-17.5); Hypochromasia Marked; Lymphocytes # (A) 0.7 k/uL (1.0-4.8); Lymphocytes % (A) 5 %; MCHC 29.8 g/dL (31.0-37.0); MCV 87.5 fL (80.0-100.0); Mean Platelet Volume 7.7; Monocytes # (A) 0.5 k/uL (0-1.0); Monocytes % (A) 4 %; Neutrophils # (A) 13.1 k/uL (1.3-7.7); Neutrophils % (A) 91 %; Platelet Count 719 k/uL (150-450); RBC 3.24 m/uL (4.30-5.90); RDW 14.9 % (11.5-15.5); WBC 14.4 k/uL (3.8-10.6)
[2023-11-07 09:00] LABS: Blood Urea Nitrogen 11.4 mg/dL (9.0-27.0); Calcium 8.8 mg/dL (8.7-10.3); Chloride 97 mmol/L (96-109); Glucose 144 mg/dL (70-110); Potassium 4.1 mmol/L (3.5-5.5); Sodium 131 mmol/L (135-145)
--- NOTE | 2023-11-07 09:47 | P.DS ---
Providers Date of admission: 10/22/23 18:35 Expected date of discharge: 11/07/23 Attending physician: Soledad Barfield Consults: 10/23/23 11:58 Consult Physician Routine Consulting Provider: Inocencio Carl Consult Reason/Comments: malignancy Do you want consulting provider notified?: Yes 10/23/23 12:00 Consult Physician Routine Consulting Provider: Sascha Davis Consult Reason/Comments: aspiration Do you want consulting provider notified?: Yes 10/24/23 12:06 Consult Physician Routine Consulting Provider: Scotty Nguyen Consult Reason/Comments: lung biopsy, hx tongue cancer Do you want consulting provider notified?: Yes 10/24/23 19:21 Consult Physician Routine Consulting Provider: Brett Grimm Consult Reason/Comments: lung mass, brain mets, hx tongue cancer Do you want consulting provider notified?: Yes Primary care physician: Stated None Hospital Course: Final diagnosis Right upper lobe lung cancer with multiple brain metastasis Significant protein calorie malnutrition, severe Right aspiration pneumonia versus postobstructive pneumonia, possibly gram- negative, treated and being monitored off antibiotics with ID following Diminished oral intake with significant weight loss and muscle wasting of bilateral upper and lower extremities as well as chest wall Oral and throat cancer history History of continued ongoing nicotine dependence history of EtOH, no active withdrawal THC use Anemia, multifactorial, required 1 unit of PRBC this admission GI prophylaxis DVT prophylaxis no code Discharge disposition Patient is being discharged in a stable condition with guarded prognosis to [facility]. Patient will follow-up with at the facility in the outpatient setting upon discharge. Patient has not had a primary care in quite some time. Patient is to continue with hospice care and does not want to seek any further oncological treatment. Total time taken is greater than 35 minutes. Hospital course This is a 58-year-old male who was recently admitted with significant weakness and muscle wasting with severe protein calorie malnutrition and being closely monitored with multiple medical consultations. Patient was found to have lung cancer on bronchoscopy findings and also underwent MRI of the brain with multiple lesions noted. Patient was being followed by oncology along with radiation oncology and patient wishing to seek no further treatment and has been agreeable to hospice. Patient was appointed a legal guardian as well as coguardian with his son Saurabh. Patient has been accepted at [facility] for hospice care and will be discharged today. Please refer to other consultation notes for further HPI. Patient has had prolonged hospitalization and is significantly weak and was maintained on antibiotics for concerns of aspiration pneumonia and has been closely monitored off antibiotic therapy with infectious disease following. Currently no reports of chest pain, shortness of breath, or palpitations. Patient is afebrile. No reports of nausea or vomiting and patient is tolerating diet. Patient will be going to [facility] today. Overall poor prognosis Physical exam: Gen: This is a 58-year-old male who is awake, alert and oriented 2-3, baseline, thin built, cachectic, emaciated significant muscle wasting noted HEENT: Head is atraumatic, normocephalic. Pupils equal, round. Sclerae is anicteric. NECK: Supple. No JVD. No lymphadenopathy. No thyromegaly. LUNGS: Manage breath sounds bilaterally otherwise Clear to auscultation. No wheezes, coarse scattered rhonchi. No intercostal retractions. HEART: Regular rate and rhythm. No murmur. ABDOMEN: Soft. Thin, scaphoid, Bowel sounds are present. No masses. No tenderness. EXTREMITIES: No pedal edema. No calf tenderness. NEUROLOGICAL: Patient is awake, alert and reactive 2-3. Baseline. Cranial nerves 2 through 12 are grossly intact. Diffusely weak Please refer to medication reconciliation sheet for a list of medications. The impression and plan of care has been dictated by Krissy Abad, Nurse Practitioner as directed. Dr. Magda MD I have performed a history and examination and MDM of this patient, discussed the same with the dictator, and agree with the dictator's assessment and plan as written ,documented as a scribe. Based on total visit time, I have performed more than 50% of the visit. Patient Condition at Discharge: Fair Plan - Discharge Summary Discharge Rx Participant: No New Discharge Prescriptions: New Docusate [Colace] 100 mg PO DAILY PRN cap PRN Reason: Constipation Ipratropium-Albuterol Nebulize [Duoneb 0.5 mg-3 mg/3 ml Soln] 3 ml INHALATION RT-QID PRN each PRN Reason: Shortness Of Breath Or Wheezing methylPREDNISolone Dose Pack [Medrol Dose Pack] 4 mg PO DIRECTED #21 tab ALPRAZolam [Xanax] 0.25 mg PO TID PRN #6 tab PRN Reason: Agitation Or Acute Anxiety Bismuth Subsalicylate [Bismatrol] 524 mg PO Q1HR PRN ml PRN Reason: Gi Upset Nicotine 21Mg/24Hr Patch [Habitrol] 1 patch TRANSDERM DAILY patch Heparin Sodium,Porcine (1 ml) [Heparin Sodium] 5,000 unit SQ Q12HR each INSULIN ASPART (NovoLOG) [NovoLOG (formulary)] 0 unit SQ ACHS each Acetaminophen Tab [Tylenol] 650 mg PO Q6HR PRN tab PRN Reason: Fever And/ Or Pain Discharge Medication List ALPRAZolam [Xanax] 0.25 mg PO TID PRN #6 tab 11/07/23 [Rx] Acetaminophen Tab [Tylenol] 650 mg PO Q6HR PRN tab 11/07/23 [Rx] Bismuth Subsalicylate [Bismatrol] 524 mg PO Q1HR PRN ml 11/07/23 [Rx] Docusate [Colace] 100 mg PO DAILY PRN cap 11/07/23 [Rx] Heparin Sodium,Porcine (1 ml) [Heparin Sodium] 5,000 unit SQ Q12HR each 11/07/23 [Rx] INSULIN ASPART (NovoLOG) [NovoLOG (formulary)] 0 unit SQ ACHS each 11/07/23 [Rx] Ipratropium-Albuterol Nebulize [Duoneb 0.5 mg-3 mg/3 ml Soln] 3 ml INHALATION RT-QID PRN each 11/07/23 [Rx] Nicotine 21Mg/24Hr Patch [Habitrol] 1 patch TRANSDERM DAILY patch 11/07/23 [Rx] methylPREDNISolone Dose Pack [Medrol Dose Pack] 4 mg PO DIRECTED #21 tab 11/07/23 [Rx] Follow up Appointment(s)/Referral(s): None,Stated [Primary Care Provider] - 1-2 days Activity/Diet/Wound Care/Special Instructions: Patient is going to [facility] Activity as tolerated Continue Medrol Dosepak taper Continue medications as prescribed Monitor blood sugars while on steroids Patient to continue with hospice care Continue dysphasia chopped diet with ground meats ARACELIS SHAVE APS P: [phone] Discharge Disposition: TRANSFER TO SNF/F
[2023-11-07 11:59] LABS: Glucose,Whole Blood 162 mg/dL (70-110)
[2023-11-07 15:11] VITALS: BP 129/76; PULSE 89; TEMP 97.6
[2023-11-07] MEDS: ALPRAZolam 0.25 MG TAB PO PRN (15:49)
== END 2023-11-07 16:47 | DRG 136 ==
LOC: EC 14:55 → 5NMEDONC 18:35 → OBSVTOIN 18:35 → EEVIPCON 18:35 → 5NMEDONC 22:03
PROVIDERS: ADMIT Hospitalist; ATTEND Hospitalist
PROC: 0B9C8ZZ Drainage of Right Upper Lung Lobe, Via Natural or Artificial Opening Endoscopic (ICD-10-PCS; principal; 2023-11-02)
PROC: 0BD68ZX Extraction of Right Lower Lobe Bronchus, Via Natural or Artificial Opening Endoscopic, Diagnostic (ICD-10-PCS; principal; 2023-11-02)
PROC: 0BBC8ZX Excision of Right Upper Lung Lobe, Via Natural or Artificial Opening Endoscopic, Diagnostic (ICD-10-PCS; principal; 2023-11-02)
PROC: 0BB68ZX Excision of Right Lower Lobe Bronchus, Via Natural or Artificial Opening Endoscopic, Diagnostic (ICD-10-PCS; principal; 2023-11-02)
PROC: 0B958ZZ Drainage of Right Middle Lobe Bronchus, Via Natural or Artificial Opening Endoscopic (ICD-10-PCS; principal; 2023-11-02)
PROC: 0BD48ZX Extraction of Right Upper Lobe Bronchus, Via Natural or Artificial Opening Endoscopic, Diagnostic (ICD-10-PCS; principal; 2023-11-02)
PROC: 30233N1 Transfusion of Nonautologous Red Blood Cells into Peripheral Vein, Percutaneous Approach (ICD-10-PCS; 2023-11-02)
DX: C34.11 Malignant neoplasm of upper lobe, right bronchus or lung (principal); G93.6 Cerebral edema; R62.7 Adult failure to thrive; E88.A Wasting disease (syndrome) due to underlying condition; J69.0 Pneumonitis due to inhalation of food and vomit; J15.69 Pneumonia due to other Gram-negative bacteria; C79.31 Secondary malignant neoplasm of brain; C79.51 Secondary malignant neoplasm of bone; J44.9 Chronic obstructive pulmonary disease, unspecified; D63.0 Anemia in neoplastic disease; F10.11 Alcohol abuse, in remission; E43 Unspecified severe protein-calorie malnutrition; E87.1 Hypo-osmolality and hyponatremia; N17.9 Acute kidney failure, unspecified; E86.0 Dehydration; F17.210 Nicotine dependence, cigarettes, uncomplicated; Z51.5 Encounter for palliative care; Z66 Do not resuscitate; Z53.29 Procedure and treatment not carried out because of patient's decision for other reasons; Z11.52 Encounter for screening for COVID-19; Z28.21 Immunization not carried out because of patient refusal; Z28.310 Unvaccinated for COVID-19; Z85.01 Personal history of malignant neoplasm of esophagus; Z85.810 Personal history of malignant neoplasm of tongue
CPT/HCPCS: 31623; 31624; 31625; 36415; 70450; 70553; 71045; 71250; 74176; 74230; 78306; 80048; 80053; 81001; 82140; 83036; 83605; 83735; 83880; 84100; 84145; 84443; 84484; 85025; 85610; 85730; 86140; 86850; 86900; 86901; 86920; 87040; 87070; 87102; 87116; 87205; 87206; 87496; 87498; 87502; 87529; 87634; 87635; 87798; 88104; 88108; 88305; 88341; 88342; 89050; 93005; 94640; 94760; 96360; 99285